=== PATIENT | male | born 1960 | race Caucasian/White ===

== ENCOUNTER 2016-03-08 11:13 | Emergency (ER) | payer MEDICAID ==
[~2016-03-08] VITALS: Ht 175.3 cm; Wt 72.6 kg
[~2016-03-08 11:13] MED LIST: AC325T PO; CALC500T6 PO; FLC1T PO; KCL20TCR PO; METO25TA2 PO; NAPR-243 PO; PALI6TAB2 PO; THIA100T12 PO
--- OUTSIDE RECORDS SUMMARY | 2016-03-08 11:22 | XMS REPORT | Continuity of Care Document ---
Author Author [facility] Organization [facility] Address Unknown Phone Unavailable Care Team Providers Care Environmental Services Tech Name Role Phone NO, LOCAL PHYSICIAN PP Unavailable Insurance Providers Payer Name Policy Number Subscriber Name Relationship [facility] [employer] [id number] Goyo Zacarias N 01 Self / Same As Patient Advance Directives Directive Response Recorded Date Advance Directives N 09/07/12 7:51am Health Care Power of Diamond Die Polisher N 09/07/12 7:51am Organ Donor N 09/07/12 7:51am Problems No Known Problems or Medical conditions. Social History History Response Recorded Date/Time Alcohol Use Regular Use 09/07/12 7:51am Recreational Drug Use N 09/07/12 7:51am Allergies, Adverse Reactions, Alerts Allergen Type Severity Reaction Last Updated NKANo Known Allergies Allergy Unknown 04/30/05 Medications Medication Dose Units Route Sig Qty Days Paliperidone (Invega) 1 Tab PO DAILY Immunizations Name Given Type DTaP 09/07/12 A Response Recorded Date/Time Status not known Unknown Results No Known Relevant Diagnostic Tests, Laboratory Data and/or Discharge Summary. Procedures Procedure Code Date APPLICATION OF SPLINT 93.54 04/30/05 Encounters Encounter Location Date/Time Departed Emergency Room [facility] 10/13 7:29am Discharged Inpatient [facility] 11:39pm
--- NOTE | 2016-03-08 11:48 | ED Lower Extremity ---
General Chief Complaint: Lower Extremity Stated Complaint: FEET/KNEES PAIN Source: patient, other (patient's friend) Exam Limitations: no limitations History of Present Illness Time seen by provider: 11:40 Initial Comments This 55-year-old male presents with a complaint of knee and foot pain that has been present for the last 2 years. The patient normally converts himself with alcohol for the pain. The patient drinks approximately a 12 pack daily. Patient denies any previous significant trauma to the knees or the feet. He has no other significant joint pain. He has knees and feet have not been swollen or red. The patient's sensation to lower extremities appear to be intact. Patient is very concerned that he has diabetes as his diabetic brother has similar pain in his legs Allergies and Home Medications Allergies Coded Allergies: NKANo Known Allergies (Verified Allergy, Unknown, 04/30/05) Home Medications Calcium Carbonate 500 Mg Tab.chew 500 MG PO (Reported) Metoprolol Tartrate 25 Mg Tablet 25 MG PO BID (Reported) Naproxen 500 Mg Tablet 1 EACH PO BID (Reported) Constitutional: No chills, No fever EENTM: No hearing loss, No vision loss Respiratory: No cough Cardiovascular: No chest pain Gastrointestinal: No abdominal pain, No diarrhea, No nausea, No vomiting Genitourinary: No dysuria, No frequency Musculoskeletal: see HPINo back pain, No gout, joint pain (to the knees and feet.) Skin: No rash Psychiatric/Neurological: No Symptoms Reported Past Wmigyzl-Qqqmsl-Fjszmm Hx Patient Social History Alcohol Use: Regular Use Recreational Drug Use: No Smoking Status: Current Everyday Smoker Recent Foreign Travel: No Contact w/Someone Who Travel: No Recent Hopitalizations: No Physical Abuse Screen: No Sexual Abuse: No Immunizations Up To Date Tetanus Booster (TDap): Unknown Seasonal Allergies Seasonal Allergies: No Surgeries HX Surgeries: No Respiratory Hx Respiratory Disorders: Yes Respiratory Disorders: Pneumonia, Sleep Apnea Cardiovascular Hx Cardiac Disorders: No Neurological Hx Neurological Disorders: Yes Reproductive System Hx Reproductive Disorders: No Genitourinary Hx Genitourinary Disorders: No Gastrointestinal Hx Gastrointestinal Disorders: No Musculoskeletal Hx Musculoskeletal Disorders: Yes Musculoskeletal Disorders: Fractures Endocrine Hx Endocrine Disorders: No HEENT HX ENT Disorders: Yes HEENT Disorders: Eye Injury, Double Vision Loss of Vision: Bilateral Hearing Impairment: Denies Cancer Hx Cancer: No Psychosocial Hx Psychiatric Problems: Yes Behavioral Health Disorders: Anxiety, Bipolar Integumentary HX Skin/Integumentary Disorder: No Blood Transfusions Hx Blood Disorders: No Adverse Reaction to a Blood Tr: No Reviewed Nursing Assessment Reviewed/Agree w Nursing PMH: Yes Physical Exam Vital Signs Vital Sign - Last 12Hours 03/08/16 11:29 Temp 98.2 Pulse 106 Resp 18 B/P 127/99 Pulse Ox 97 O2 Delivery Room Air Capillary Refill : General Appearance: WD/WN no apparent distress HEENT: normal ENT inspection Neck: normal inspection Cardiovascular: regular rate, rhythm Respiratory: lungs clear Gastrointestinal: normal bowel sounds non tender soft Back: normal inspection Hips: bilateral hip non-tender Legs: bilateral leg non-tender Knees: bilateral knee non-tender, bilateral knee pain Ankles: bilateral ankle non-tender Feet: bilateral foot non-tender, bilateral foot pain Neurologic/Tendon: normal sensation normal motor functions Neurologic/Psychiatric: no motor/sensory deficits alert normal mood/affect Skin: normal color warm/dry Progress/Results/Core Measures Results/Orders Lab Results Laboratory Tests Test 03/08/16 11:50 Range/Units Alanine Aminotransferase (ALT/SGPT) 57 H 0-55 U/L Albumin 4.3 3.2-4.5 G/DL Alkaline Phosphatase 81 40-136 U/L Anion Gap 15 H 5-14 MMOL/L Aspartate Amino Transf (AST/SGOT) 66 H 5-34 U/L BUN/Creatinine Ratio 7 Basophils # (Auto) 0.1 0.0-0.1 10^3/uL Basophils (%) (Auto) 1 0-10 % Blood Urea Nitrogen 5 L 7-18 MG/DL Calcium Level 8.8 8.5-10.1 MG/DL Carbon Dioxide Level 22 21-32 MMOL/L Chloride Level 103 98-107 MMOL/L Creatinine 0.67 0.60-1.30 MG/DL Eosinophils # (Auto) 0.1 0.0-0.3 10^3/uL Eosinophils (%) (Auto) 1 0-10 % Erythrocyte Sedimentation Rate 13 0-30 MM/HR Estimat Glomerular Filtration Rate > 60 Glucose Level 93 70-105 MG/DL Hematocrit 43 40-54 % Hemoglobin 15.3 13.3-17.7 G/DL Hemoglobin A1c 5.3 4.5-6.2 % Lymphocytes # (Auto) 3.4 1.0-4.0 X 10^3 Lymphocytes (%) (Auto) 31 12-44 % Mean Corpuscular Hemoglobin 33 25-34 PG Mean Corpuscular Hemoglobin Concent 36 32-36 G/DL Mean Corpuscular Volume 93 80-99 FL Mean Platelet Volume 9.4 7.4-10.4 FL Monocytes # (Auto) 1.0 0.0-1.0 X 10^3 Monocytes (%) (Auto) 9 0-12 % Neutrophils # (Auto) 6.3 1.8-7.8 X 10^3 Neutrophils (%) (Auto) 58 42-75 % Platelet Count 300 130-400 10^3/uL Potassium Level 3.7 3.6-5.0 MMOL/L Red Blood Count 4.61 4.35-5.85 10^6/uL Red Cell Distribution Width 16.3 H 10.0-14.5 % Sodium Level 140 135-145 MMOL/L Total Bilirubin 0.3 0.1-1.0 MG/DL Total Protein 7.7 6.4-8.2 G/DL Uric Acid 6.4 2.6-7.2 MG/DL White Blood Count 10.8 4.3-11.0 10^3/uL My Orders Orders-ADA ARDON MD Erythrocyte Sedimentation Rate (03/08/16 11:37) Uric Acid (03/08/16 11:37) Comprehensive Metabolic Panel (03/08/16 11:37) Hemoglobin A1c (03/08/16 11:37) Knee, 3 Views, Bilateral (03/08/16 11:37) Foot, Bilateral, 3 View (03/08/16 11:37) Cbc With Automated Diff (03/08/16 11:37) Vital Signs/I&O Vital Sign - Last 12Hours 03/08/16 11:29 Temp 98.2 Pulse 106 Resp 18 B/P 127/99 Pulse Ox 97 O2 Delivery Room Air Progress Note : Time: 11:51 Progress Note There is no evidence of effusion or erythema on examination of the knees and feet. A normal dorsalis pedis was appreciated bilaterally. No cyanosis was present the extremities were normal in color. Departure Impression Impression: Primary Impression: Joint pain Qualified Code: M25.569 - Pain in unspecified knee Disposition: Condition: Unchanged (ERASED) Departure-Patient Inst. Decision time for Depature: 15:23 Referrals: JORY MELCHOR DO (PCP/Family) Primary Care Physician Patient Instructions: Joint Pain Add. Discharge Instructions: Ibuprofen for pain. Close follow-up with Dr. Cadena. Return if any problems or questions. All discharge instructions reviewed with patient and/or family. Voiced understanding. ADA ARDON MD Mar 08, 2016 11:48
[2016-03-08 11:59] LABS: BASOPHILS # (AUTO) 0.1 10^3/uL (0.0-0.1); BASOPHILS % (AUTO) 1 % (0-10); EOSINOPHILS # (AUTO) 0.1 10^3/uL (0.0-0.3); EOSINOPHILS % (AUTO) 1 % (0-10); LYMPHOCYTES # (AUTO) 3.4 X 10^3 (1.0-4.0); LYMPHOCYTES % (AUTO) 31 % (12-44); MEAN CORPUSCULAR HEMOGLOBIN 33 PG (25-34); MEAN CORPUSCULAR HGB CONC 36 G/DL (32-36); MEAN CORPUSCULAR VOLUME 93 FL (80-99); MEAN PLATELET VOLUME 9.4 FL (7.4-10.4); MONOCYTES % (AUTO) 9 % (0-12); NEUTROPHILS # (AUTO) 6.3 X 10^3 (1.8-7.8); NEUTROPHILS % (AUTO) 58 % (42-75); PLATELET COUNT 300 10^3/uL (130-400); RED BLOOD COUNT 4.61 10^6/uL (4.35-5.85); RED CELL DISTRIBUTION WIDTH 16.3 % (10.0-14.5); WHITE BLOOD COUNT 10.8 10^3/uL (4.3-11.0)
[2016-03-08 12:09] VITALS: BP 0/0
[2016-03-08 12:16] LABS: ALANINE AMINOTRANSFERASE 57 U/L (0-55); ALBUMIN 4.3 G/DL (3.2-4.5); ANION GAP 15 MMOL/L (5-14); ASPARTATE AMINO TRANSFERASE 66 U/L (5-34); BILIRUBIN,TOTAL 0.3 MG/DL (0.1-1.0); BLOOD UREA NITROGEN 5 MG/DL (7-18); BUN/CREATININE RATIO 7; CALCIUM 8.8 MG/DL (8.5-10.1); CARBON DIOXIDE 22 MMOL/L (21-32); CHLORIDE 103 MMOL/L (98-107); CREATININE SERUM 0.67 MG/DL (0.60-1.30); GFR ESTIMATED > 60; GLUCOSE 93 MG/DL (70-105); POTASSIUM 3.7 MMOL/L (3.6-5.0); SODIUM 140 MMOL/L (135-145); TOTAL PROTEIN 7.7 G/DL (6.4-8.2); URIC ACID 6.4 MG/DL (2.6-7.2)
[2016-03-08 12:18] LABS: ERYTHROCYTE SEDIMENTATION RATE 13 MM/HR (0-30)
--- NOTE | 2016-03-08 12:23 | Diagnostic Imaging Report ---
INDICATION: Bilateral foot pain. Three views of each foot were obtained. FINDINGS: There is no fracture, dislocation or other acute abnormality seen within either foot. There is mild narrowing of the metatarsophalangeal joint of the first digit bilaterally. IMPRESSION: There are mild degenerative changes present. No acute abnormality is seen. Dictated by: Dictated on workstation # [id number]
--- NOTE | 2016-03-08 12:25 | Diagnostic Imaging Report ---
INDICATION: Bilateral knee pain for one year. Three views of each knee were obtained. FINDINGS: There is no fracture, dislocation or other acute abnormality seen on either side. No significant degenerative joint disease is seen. There is no chondrocalcinosis. There are no significant effusions. IMPRESSION: No abnormality is seen. Dictated by: Dictated on workstation # [id number]
== END 2016-03-08 12:09 | disposition left against medical advice (07) ==
LOC: EDUNIT# 11:13 → ER 11:17
DX: M25.561 Pain in right knee (principal); M25.562 Pain in left knee; M25.571 Pain in right ankle and joints of right foot; M25.572 Pain in left ankle and joints of left foot; F17.210 Nicotine dependence, cigarettes, uncomplicated; F10.10 Alcohol abuse, uncomplicated
CPT/HCPCS: 36415; 80053; 83036; 84550; 85025; 85652

== ENCOUNTER → 2016-12-18 | Outpatient (CLI) | payer MEDICAID ==
[2016-12-18 10:33] LABS: BASOPHILS % (AUTO) 0 % (0-10); EOSINOPHILS % (AUTO) 0 % (0-10); LYMPHOCYTES # (AUTO) 1.4 X 10^3 (1.0-4.0); LYMPHOCYTES % (AUTO) 11 % (12-44); MEAN CORPUSCULAR HEMOGLOBIN 34 PG (25-34); MEAN CORPUSCULAR HGB CONC 36 G/DL (32-36); MEAN CORPUSCULAR VOLUME 93 FL (80-99); MEAN PLATELET VOLUME 10.4 FL (7.4-10.4); MONOCYTES # (AUTO) 1.3 X 10^3 (0.0-1.0); MONOCYTES % (AUTO) 10 % (0-12); NEUTROPHILS # (AUTO) 10.7 X 10^3 (1.8-7.8); NEUTROPHILS % (AUTO) 80 % (42-75); PLATELET COUNT 127 10^3/uL (130-400); RED BLOOD COUNT 4.48 10^6/uL (4.35-5.85); RED CELL DISTRIBUTION WIDTH 14.8 % (10.0-14.5); WHITE BLOOD COUNT 13.5 10^3/uL (4.3-11.0)
--- NOTE | 2016-12-18 10:55 | Diagnostic Imaging Report ---
INDICATION: COUGH CONGESTION. COMPARISON:09/25/2012. FINDINGS: Frontal and lateral views of the chest demonstrate normal heart size and pulmonary vascularity. The lungs are clear. There are no signs of infiltrate, pleural effusions or pneumothoraces. The visualized osseous structures show no acute abnormalities. IMPRESSION: 1. No acute process. No signs of infiltrates, effusions or pneumothoraces. Dictated by: Dictated on workstation # [id number]
[2016-12-18 11:01] LABS: ALANINE AMINOTRANSFERASE 63 U/L (0-55); ALBUMIN 3.9 GM/DL (3.2-4.5); ANION GAP 18 MMOL/L (5-14); ASPARTATE AMINO TRANSFERASE 55 U/L (5-34); BILIRUBIN,TOTAL 1.1 MG/DL (0.1-1.0); BLOOD UREA NITROGEN 4 MG/DL (7-18); BUN/CREATININE RATIO 5; CALCIUM 9.6 MG/DL (8.5-10.1); CARBON DIOXIDE 19 MMOL/L (21-32); CHLORIDE 93 MMOL/L (98-107); CHOLESTEROL 166 MG/DL (< 200); CREATININE SERUM 0.73 MG/DL (0.60-1.30); DIRECT LDL 65 MG/DL (1-129); GFR ESTIMATED > 60; GLUCOSE 89 MG/DL (70-105); POTASSIUM 3.5 MMOL/L (3.6-5.0); SODIUM 130 MMOL/L (135-145); TOTAL PROTEIN 7.4 GM/DL (6.4-8.2); TRIGLYCERIDES 92 MG/DL (<150); VLDL CHOLESTEROL 18 MG/DL (5-40)
[2016-12-18 11:21] LABS: THYROID STIMULATING HORMONE 33.85 UIU/ML (0.35-4.94)
== END ==
LOC: CARD 09:59
PROVIDERS: ATTEND Family Medicine
DX: R42 Dizziness and giddiness (principal); F25.9 Schizoaffective disorder, unspecified; R00.0 Tachycardia, unspecified; R05 Cough
CPT/HCPCS: 36415; 71020; 80053; 80061; 84153; 84443; 85025; 93005

== ENCOUNTER 2016-12-23 15:35 | Emergency (ER) | payer MEDICAID ==
[~2016-12-23] VITALS: Ht 180.3 cm; Wt 72.6 kg
--- NOTE | 2016-12-23 16:08 | ED General ---
General Stated Complaint: CHEST PAIN/DIZZINESS/NEW MEDS Source of Information: Patient Exam Limitations: No Limitations History of Present Illness Time Seen by Provider: 16:06 Initial Comments To ER with c/o palpitations, denies chest pain, nonproductive cough, and a rhythmic uncontrollable movement of the jaw. The jaw movement, palpitations began a few weeks ago after starting synthroid and paliperidone. The cough and dyspnea is chronic. He smokes >2ppd. Denies chest or abdomen pain. Timing/Duration: 1-2 Days Severity: Moderate Associated Systoms: No Chest Pain, Cough Allergies and Home Medications Allergies Coded Allergies: NKANo Known Allergies (Verified Allergy, Unknown, 04/30/05) Home Medications Calcium Carbonate 500 Mg Tab.chew, 500 MG PO, (Reported) Metoprolol Tartrate 25 Mg Tablet, 25 MG PO BID, (Reported) Naproxen 500 Mg Tablet, 1 EACH PO BID, (Reported) Constitutional: see HPI EENTM: see HPI Respiratory: see HPI, cough Cardiovascular: no symptoms reported Genitourinary: no symptoms reported Musculoskeletal: no symptoms reported Skin: no symptoms reported Psychiatric/Neurological: No Symptoms Reported Hematologic/Lymphatic: No Symptoms Reported Past Gdprlmo-Ojsajt-Tjjnxv Hx Patient Social History Alcohol Beverage of Choice: Beer, Vodka Recent Foreign Travel: No Contact w/Someone Who Travel: No Recent Hopitalizations: No Immunizations Up To Date Tetanus Booster (TDap): Unknown Seasonal Allergies Seasonal Allergies: No Respiratory Respiratory Disorders: Pneumonia, Sleep Apnea Reproductive System Hx Reproductive Disorders: No Musculoskeletal Musculoskeletal Disorders: Fractures HEENT HEENT Disorders: Eye Injury, Double Vision Loss of Vision: Bilateral Hearing Impairment: Denies Psychosocial Behavioral Health Disorders: Anxiety, Bipolar Blood Transfusions Adverse Reaction to a Blood Tr: No Physical Exam Vital Signs Vital Sign - Last 12Hours 12/23/16 16:00 Temp 97.5 Pulse 82 Resp 18 B/P (MAP) 140/63 O2 Delivery Room Air Capillary Refill : General Appearance: No Apparent Distress, WD/WN Eyes: Bilateral Eye Normal Inspection, Bilateral Eye PERRL, Bilateral Eye EOMI HEENT: PERRL/EOMI, TMs Normal Neck: Full Range of Motion, Normal Inspection, Other (dystonic movements of jaw ) Respiratory: No Accessory Muscle Use, No Respiratory Distress, Decreased Breath Sounds, Rhonci Cardiovascular: Regular Rate, Rhythm, Normal Peripheral Pulses Gastrointestinal: Normal Bowel Sounds, Non Tender, Soft Extremity: Normal Capillary Refill, No Calf Tenderness Neurologic/Psychiatric: Alert, Oriented x3, No Motor/Sensory Deficits Skin: Normal Color, Warm/Dry Progress/Results/Core Measures Results/Orders Lab Results Laboratory Tests Test 12/23/16 16:30 Range/Units White Blood Count 12.0 H 4.3-11.0 10^3/uL Red Blood Count 3.85 L 4.35-5.85 10^6/uL Hemoglobin 13.0 L 13.3-17.7 G/DL Hematocrit 36 L 40-54 % Mean Corpuscular Volume 93 80-99 FL Mean Corpuscular Hemoglobin 34 25-34 PG Mean Corpuscular Hemoglobin Concent 36 32-36 G/DL Red Cell Distribution Width 15.1 H 10.0-14.5 % Platelet Count 229 130-400 10^3/uL Mean Platelet Volume 10.2 7.4-10.4 FL Neutrophils (%) (Auto) 58 42-75 % Lymphocytes (%) (Auto) 28 12-44 % Monocytes (%) (Auto) 13 H 0-12 % Eosinophils (%) (Auto) 1 0-10 % Basophils (%) (Auto) 1 0-10 % Neutrophils # (Auto) 7.0 1.8-7.8 X 10^3 Lymphocytes # (Auto) 3.3 1.0-4.0 X 10^3 Monocytes # (Auto) 1.5 H 0.0-1.0 X 10^3 Eosinophils # (Auto) 0.1 0.0-0.3 10^3/uL Basophils # (Auto) 0.1 0.0-0.1 10^3/uL Sodium Level 136 135-145 MMOL/L Potassium Level 3.7 3.6-5.0 MMOL/L Chloride Level 102 98-107 MMOL/L Carbon Dioxide Level 22 21-32 MMOL/L Anion Gap 12 5-14 MMOL/L Blood Urea Nitrogen 3 L 7-18 MG/DL Creatinine 0.62 0.60-1.30 MG/DL Estimat Glomerular Filtration Rate > 60 BUN/Creatinine Ratio 5 Glucose Level 97 70-105 MG/DL Calcium Level 8.9 8.5-10.1 MG/DL Total Bilirubin 0.4 0.1-1.0 MG/DL Aspartate Amino Transf (AST/SGOT) 160 H 5-34 U/L Alanine Aminotransferase (ALT/SGPT) 109 H 0-55 U/L Alkaline Phosphatase 72 40-136 U/L Total Protein 6.9 6.4-8.2 GM/DL Albumin 3.5 3.2-4.5 GM/DL Serum Alcohol 208 H <10 MG/DL My Orders Orders - HONG PATEL APRN Cbc With Automated Diff (12/23/16 16:04) Comprehensive Metabolic Panel (12/23/16 16:04) Troponin I (12/23/16 16:04) Thyroid Stimulating Hormone (12/23/16 16:04) Free T4 (Free Thyroxine) (12/23/16 16:04) Ua Culture If Indicated (12/23/16 16:04) Drug Screen Stat (Urine) (12/23/16 16:04) Diphenhydramine Tablet (Benadryl Tablet) (12/23/16 16:15) Ekg Tracing (12/23/16 16:04) Chest Pa/Lat (2 View) (12/23/16 16:04) Alcohol (12/23/16 16:25) Vital Signs/I&O Vital Sign - Last 12Hours 12/23/16 16:00 Temp 97.5 Pulse 82 Resp 18 B/P (MAP) 140/63 O2 Delivery Room Air Departure Communication (Admissions) Progress Notes NAME: GOYO ZACARIAS Sergio [facility] REC#: [id number] PT STATUS: REG ER : 1960 PHYSICIAN: HONG PATEL APRN ADMIT DATE: 12/23/16/ER Draft Date of Exam:12/23/16 CHEST PA/LAT (2 VIEW) INDICATION: Chest pain and dizziness and difficulty walking. PA and lateral chest obtained at 5:07 p.m. FINDINGS: Heart and mediastinal silhouette are normal in appearance. The lungs are clear. There is no pneumothorax or pleural fluid. IMPRESSION: Negative chest. Dictated on workstation # [id number] Dict: 12/23/161650 Trans: 12/23/161657 DAVE [id number] Interpreted by: CARLITOS HODGES MD Electronically signed by: Impression Impression: Primary Impression: Alcohol intoxication Additional Impressions: Medication side effect Chronic bronchitis Disposition: 01 HOME, SELF-CARE Condition: Stable Departure-Patient Inst. Decision time for Depature: 17:01 Referrals: JORY MELCHOR DO (PCP/Family) Primary Care Physician Patient Instructions: NO INSTRUCTIONS GIVEN Add. Discharge Instructions: 1. Follow up with Dr Melchor. Return to ER as needed. Ask Dr Melchor about stopping or changing the paliperidone as this is likely the cause of your unusual jaw movements. IN the meantime, use benadryl 1 tablet every 4 hours to help control this. HONG PATEL APRN Dec 23, 2016 16:08
[2016-12-23] MEDS ORDERED: diphenhydrAMINE 25 MG TAB (BENADRYL) PO ONE (16:15)
[2016-12-23 16:36] LABS: BASOPHILS # (AUTO) 0.1 10^3/uL (0.0-0.1); BASOPHILS % (AUTO) 1 % (0-10); EOSINOPHILS # (AUTO) 0.1 10^3/uL (0.0-0.3); EOSINOPHILS % (AUTO) 1 % (0-10); LYMPHOCYTES # (AUTO) 3.3 X 10^3 (1.0-4.0); LYMPHOCYTES % (AUTO) 28 % (12-44); MEAN CORPUSCULAR HEMOGLOBIN 34 PG (25-34); MEAN CORPUSCULAR HGB CONC 36 G/DL (32-36); MEAN CORPUSCULAR VOLUME 93 FL (80-99); MEAN PLATELET VOLUME 10.2 FL (7.4-10.4); MONOCYTES # (AUTO) 1.5 X 10^3 (0.0-1.0); MONOCYTES % (AUTO) 13 % (0-12); NEUTROPHILS % (AUTO) 58 % (42-75); PLATELET COUNT 229 10^3/uL (130-400); RED BLOOD COUNT 3.85 10^6/uL (4.35-5.85); RED CELL DISTRIBUTION WIDTH 15.1 % (10.0-14.5)
[2016-12-23 16:56] LABS: ALANINE AMINOTRANSFERASE 109 U/L (0-55); ALBUMIN 3.5 GM/DL (3.2-4.5); ALCOHOL 208 MG/DL (<10); ANION GAP 12 MMOL/L (5-14); ASPARTATE AMINO TRANSFERASE 160 U/L (5-34); BILIRUBIN,TOTAL 0.4 MG/DL (0.1-1.0); BLOOD UREA NITROGEN 3 MG/DL (7-18); BUN/CREATININE RATIO 5; CALCIUM 8.9 MG/DL (8.5-10.1); CARBON DIOXIDE 22 MMOL/L (21-32); CHLORIDE 102 MMOL/L (98-107); CREATININE SERUM 0.62 MG/DL (0.60-1.30); GFR ESTIMATED > 60; GLUCOSE 97 MG/DL (70-105); POTASSIUM 3.7 MMOL/L (3.6-5.0); SODIUM 136 MMOL/L (135-145); TOTAL PROTEIN 6.9 GM/DL (6.4-8.2)
--- NOTE | 2016-12-23 16:58 | Diagnostic Imaging Report ---
INDICATION: Chest pain and dizziness and difficulty walking. PA and lateral chest obtained at 5:07 p.m. FINDINGS: Heart and mediastinal silhouette are normal in appearance. The lungs are clear. There is no pneumothorax or pleural fluid. IMPRESSION: Negative chest. Dictated by: Dictated on workstation # [id number]
[2016-12-23 17:17] LABS: THYROID STIMULATING HORMONE 32.31 UIU/ML (0.35-4.94); TROPONIN I < 0.30 NG/ML (<0.30)
[2016-12-23 18:00] LABS: BILIRUBIN,URINE NEGATIVE (NEGATIVE); KETONES,URINE NEGATIVE (NEGATIVE); LEUKOCYTE ESTERASE ,URINE NEGATIVE (NEGATIVE); NITRITE,URINE NEGATIVE (NEGATIVE); PH,URINE 6.5 (5-9); PROTEIN,URINE NEGATIVE (NEGATIVE); UROBILINOGEN,URINE NORMAL (NORMAL)
[2016-12-23 18:25] VITALS: BP 138/66
== END 2016-12-23 18:25 | disposition home or self-care (01) ==
LOC: EDUNIT# 15:35 → ER 15:38
DX: F10.129 Alcohol abuse with intoxication, unspecified (principal); T38.1X5A Adverse effect of thyroid hormones and substitutes, initial encounter; J42 Unspecified chronic bronchitis; G47.30 Sleep apnea, unspecified; F31.9 Bipolar disorder, unspecified; F41.9 Anxiety disorder, unspecified; F17.210 Nicotine dependence, cigarettes, uncomplicated; Z87.01 Personal history of pneumonia (recurrent)
CPT/HCPCS: 36415; 71020; 80053; 80306; 80320; 81000; 84439; 84443; 84484; 85025; 93005

== ENCOUNTER 2019-06-05 23:19 | Emergency (ER) | payer MEDICAID ==
[~2019-06-05] VITALS: Ht 170 cm; Wt 81.0 kg
--- NOTE | 2019-06-05 23:36 | NUR ---
PT TALKING AND YELLING TO HIMSELF IN ROOM AND HITTING HIMSELF IN THE HEAD WITH HIS HAND. [facility] CALLED.
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
--- NOTE | 2019-06-05 23:47 | NUR ---
[place] [employer] HERE AFTER PT BECOMING INCREASINGLY AGGRESSIVE WITH [facility].
[2019-06-05 23:57] VITALS: BP 145/96
--- NOTE | 2019-06-05 23:57 | NUR ---
DISCHARGE INSTRUCTIONS GIVEN. PT REFUSED TO SIGN DC SIGNATURE PAGE. PT ESCORTED OFF PREMISES BY JT RENNER.
== END 2019-06-05 23:57 | disposition home or self-care (01) ==
LOC: EDUNIT# 23:19 → ER 23:21
DX: F10.920 Alcohol use, unspecified with intoxication, uncomplicated (principal); G47.30 Sleep apnea, unspecified; F41.9 Anxiety disorder, unspecified; F31.9 Bipolar disorder, unspecified
CPT/HCPCS: 99283

== ENCOUNTER 2019-06-20 20:11 | Observation (INO) | payer MEDICAID ==
[~2019-06-20] VITALS: Ht 175.3 cm; Wt 64.1 kg
[2019-06-20] MEDS ORDERED: NITROGLYCERIN 2% OINT 1 GM UNIT DOSE PACKET TOP STA (20:16)
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
--- OUTSIDE RECORDS SUMMARY | 2019-06-20 20:16 | XMS REPORT ---
Author Author Sergo, Jessie Doctor Organization [facility] Address Unknown Phone Unavailable Care Team Providers Care Precinct Captain Name Role Phone Migration, Doctor Unavailable Unavailable PROBLEMS Unknown Problems ALLERGIES No Information ENCOUNTERS Encounter Location Date Diagnosis [facility] [address] [facility] [id number] [address] [place] [id number] Oct, [facility] [address] [facility] [id number] [address] [place] [id number] Oct, [facility] [address] [facility] [id number] [address] [place] [phone] Oct, [facility] [address] [facility] [id number] [address] [place] [address] [id number] Aug, IMMUNIZATIONS No Known Immunizations SOCIAL HISTORY Never Assessed REASON FOR VISIT EMR-[facility] PLAN OF CARE VITAL SIGNS MEDICATIONS Unknown Medications RESULTS No Results PROCEDURES No Known procedures INSTRUCTIONS MEDICATIONS ADMINISTERED No Known Medications
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
--- OUTSIDE RECORDS SUMMARY | 2019-06-20 20:17 | XMS REPORT | Continuity of Care Document ---
Author Author [facility] Organization [facility] Address Unknown Phone Unavailable Care Team Providers Care Chemical Worker Name Role Phone NO, LOCAL PHYSICIAN PP Unavailable Insurance Providers Payer Name Policy Number Subscriber Name Relationship [place] [employer] [id number] Jessie Zacarias N 01 Self / Same As Patient Advance Directives Directive Response Recor ded Date Advance Directives N 12/13 6:22pm Health Care Power of Railroad Wheels And Axle Inspector N 09/09/12 6:22pm Organ Donor N 09/09/12 6 :22pm Problems No Known Problems or Medical conditions. Family History History Response Recorde d Date/Time Hx Family Cancer Y 09/09 5:49pm Hx Family Lung Cancer Y 09/09/12 5:49pm Hx Family Cardiac Disorders Y 09/09/12 5:49pm Hx Family Hypertension Y 09/09/12 5:49pm Social History History Response Recorde d Date/Time Alcohol Use Regular Use 09/09/12 5:59pm Recreational Drug Use Y 09/09/12 5:59pm Recent Foreign Travel N 09/09/12 5:59pm Recent Infectious Disease Exposure N 09/09/12 5:59pm Hospitalization with Isolation Denies 09/21/12 6:03pm Allergies, Adverse Reactions, Alerts Allergen Type Severity Reaction Last Updated NKANo Known Allergies Allergy Unknown 04/30/05 Medications Medication Dose Units Route Sig Qty Days Calcium Carbonate (Antacid Chewable Tablet) 500 Mg PO Naproxen (Naprosyn) 1 Ea ch PO BID Metoprolol Tartrate (Lopressor Po) 25 Mg PO BID Thiamine Hcl 100 Mg PO DAILY Acetaminophen (Tylenol) 650 Mg PO Q4H Potassium Chloride (Klor-Con 20 Tab) 1 Each PO DAILY Folic Acid (Folic Acid 1MG) 1 Mg PO DAILY Paliperidone (Invega) 1 Tab PO DAILY Immunizations Name Given Type DTaP 09/07/12 A Response Recorded Date/Time Status not known Unknown Results Test Date Result Interp. Ref. Range Activated Partial Thromboplast Time September 07, 2012 7:44am 30 SEC N 24-35 Alanine Aminotransferase (ALT/SGPT) September 07, 2012 7:44am 57 U/L N 30-65 Albumin September 07, 2012 7:44am 3.6 G/DL N 3.4-5.0 Alkaline Phosphatase September 07, 2012 7:44am 96 U/L N 50-136 Amphetamines Screen April 30 6 3:30pm Negative - Anisocytosis September 07, 2012 7:44am SLIGHT - Aspartate Amino Transf (AST/SGOT) Ju 2012 7:44am 63 U/L H 15-37 BUN/Creatinine Ratio September 07, 2012 7:44am 11 - Band Neutrophils September 07, 2012 7:44am 1 % - Basophils # (Auto) September 07, 2012 7:44am 0.0 10^3/uL N 0.0-0.1 Basophils % (Manual) September 07, 2012 7:44am 0 % - Basophils (%) (Auto) September 07, 2012 7:44am 0 % N 0-10 Blood Urea Nitrogen September 07, 2012 7:44am 12 MG/DL N 7-18 Calcium Level September 07, 2012 7:44am 8.9 MG/DL N 8.5-10.1 Carbon Dioxide Level September 07, 2012 7:44am 28 MMOL/L N 21-32 Chloride Level September 07, 2012 7:44am 99 MMOL/L L 101-110 Cholesterol Level June 26, 2005 7:05am 161 MG/DL N -200 Cocaine Screen April 30, 2005 3:30pm Negative - Creatinine September 07, 2012 7:44am 1.1 MG/DL N 0.6-1.3 Direct Bilirubin May 05, 2005 7:48am 0.1 MG/DL N 0.0-0.30 Eosinophils # (Auto) September 07, 2012 7:44am 0.0 10^3/uL N 0.0-0.3 Eosinophils % (Manual) September 07, 2012 7:44a m 0 % - Eosinophils (%) (Auto) September 07, 2012 7:44a m 0 % N 0-10 Glucose Level September 07, 2012 7:44am 131 MG/DL H 74-106 HDL Cholesterol June 26, 2005 7:05am 25 MG/ML L 35-60 Hematocrit September 07, 2012 7:44am 41 % N 40-54 Hemoglobin September 07, 2012 7:44am 14.5 G/DL N 13.3-17.7 Hepatitis A IgM Antibody May 03 006 7:25am See report - Hepatitis B Core IgM Antibody May 03, 2005 7:25am See report - Hepatitis B Surface Antigen May 7:25am See report - Hepatitis C Antibody May 03, 2005 7:25am See report - Indirect Bilirubin May 05, 2005 7:48am 0.3 MG/DL - LDL Cholesterol June 26, 2005 7:05am 113 MG/DL N 0-129 [place] Level June 27, 2005 6:31am 0.5 MEQ/L N 0.5-1.5 Lymphocytes # (Auto) September 07, 2012 7:44am 3.4 X 10^3 N 1.0-4.0 Lymphocytes % (Manual) September 07, 2012 7:44a m 15 % - Lymphocytes (%) (Auto) September 07, 2012 7:44a m 21 % N 12-44 Macrocytosis September 07, 2012 7:44am SLIGHT - Marijuana (THC) Screen April 30, 2005 3:30pm Negative - Mean Corpuscular Hemoglobin September 07, 2012 7:44am 32 PG N 25-34 Mean Corpuscular Hemoglobin Concent September 07, 2012 7:44am 36 G/DL N 32-36 Mean Corpuscular Volume September 07, 201 3 7:44am 90 FL N 80-99 Mean Platelet Volume September 07, 2012 7:44am 10.4 FL N 7.4-10.4 Methadone Level June 25, 2005 7:31am Neg - Monocytes # (Auto) September 07, 2012 7:44am 0.8 X 10^3 N 0.0-1.0 Monocytes % (Manual) September 07, 2012 7:44am 5 % - Monocytes (%) (Auto) September 07, 2012 7:44am 5 % N 0-12 Neutrophils # (Auto) September 07, 2012 7:44am 12.0 X 10^3 H 1.8-7.8 Neutrophils % (Manual) September 07, 2012 7:44a m 79 % - Neutrophils (%) (Auto) September 07, 2012 7:44a m 74 % N 42-75 Opiates Screen June 25, 2005 7:31am Neg - Platelet Count September 07, 2012 7:44am 239 10^3/uL N 130-400 Potassium Level September 07, 2012 7:44am 4.4 MMOL/L N 3.6-5.0 Prothrombin Time September 07, 2012 7:44am 12.0 SEC L 12.2-14.7 Rapid Plasma Reagin April 30 6 2:58pm Non-reactive - Red Blood Count September 07, 2012 7:44am 4.48 10^6/uL N 4.35-5.85 Red Cell Distribution Width September 07, 2012 7:44am 15.1 % H 10.0-14.5 Sodium Level September 07, 2012 7:44am 136 MMOL/L N 135-145 TSH [place] Testing June 25, 2005 6:57am 1.95 ULU/ML N 0.34-5.60 Total Bilirubin September 07, 2012 7:44am 0.7 MG/DL N 0.0-1.0 Total Protein September 07, 2012 7:44am 8.3 G/DL H 6.4-8.2 Tricyclic Antidepressants Screen Apr 3:30pm Negative - Triglycerides Level June 26, 2005 7:05am 117 MG/DL N 30.0-150.0 Urine Acetaminophen Level June 25, 2005 7:31am Neg - Urine Amphetamines Screen June 25, 2005 7:31am Neg - Urine Bacteria August 26, 2010 7:00am NEGATIVE - Urine Barbiturates Screen June 25, 2005 7:31am Neg - Urine Benzodiazepines Screen June 022005 7:31am Neg - Urine Bilirubin August 26, 2010 7:00am NEGATIVE - Urine Casts August 26, 2010 7:00am NONE - Urine Clarity August 26, 2010 7:00am CLEAR - Urine Cocaine Screen June 25, 2005 7:31am Neg - Urine Color August 26, 2010 7:00am YELLOW - Urine Crystals August 26, 2010 7:00am NONE - Urine Culture Indicated August 26 1 7:00am NO - Urine Drug Screen Other June 25 06 7:31am Neg - Urine Glucose (UA) August 26, 2010 7:00am NEGATIVE - Urine Ketones August 26, 2010 7:00am NEGATIVE - Urine Leukocyte Esterase August 26 7:00am NEGATIVE - Urine Marijuana (THC) June 25, 2005 7:31a m Neg - Urine Methamphetamines Screen Februa 2005 3:30pm Negative - Urine Mucus August 26, 2010 7:00am NEGATIVE - Urine Nitrate June 25, 2005 7:31am Negative - Urine Nitrite August 26, 2010 7:00am NEGATIVE - Urine Phencyclidine (PCP) Level Apri l 2005 7:31am Neg - Urine Phencyclidine Screen April 30, 2005 3:30pm Negative - Urine Propoxyphene Screen June 25, 2005 7:31am Neg - Urine Protein August 26, 2010 7:00am NEGATIVE - Urine RBC August 26, 2010 7:00am NONE /HPF - Urine Specific [place] August 26, 2010 7:00a m 1.010 L - Urine Squamous Epithelial Cells August 26, 2010 7:00am NONE - Urine Urobilinogen August 26, 2010 7:00am NORMAL MG/DL - Urine WBC August 26, 2010 7:00am NONE /HPF - Urine pH August 26, 2010 7:00am 5.0 - VLDL Cholesterol June 26, 2005 7:05am 23 MG/DL N 5-40 White Blood Count September 07, 2012 7:44am 16.3 10^3/uL H 4.3-11.0 Barbiturate Screen April 30, 2005 3:30p m Negative - Serum Alcohol September 07, 2012 7:44am < 5 MG/DL -5 Urine Creatinine (Tox) June 25 7:31am 99 MG/DL - Estimat Glomerular Filtration Rate J gris 2012 7:44am > 60 - Urine Ethyl Alcohol Screen June 25, 2005 7:31am Neg - Urine Salicylate Screen June 25 06 7:31am Neg - Urine RBC (Auto) August 26, 2010 7:00am NEGATIVE - INR Comment September 07, 2012 7:44am 0.9 N 0.8-1.4 Procedures Procedure Code Date APPLICATION OF SPLINT 93.54 04/30/05 Encounters Encounter Location Date/ Time Discharged Inpatient [facility] 09/09/12 5:37pm Departed Emergency Room [facility] 09/07/12 7:29am
--- OUTSIDE RECORDS SUMMARY | 2019-06-20 20:17 | XMS REPORT | Continuity of Care Document ---
Author Author [facility] Organization [facility] Address Unknown Phone Unavailable Care Team Providers Care Pressurization Mechanic Name Role Phone NO, LOCAL PHYSICIAN PP Unavailable Insurance Providers Payer Name Policy Number Subscriber Name Relationship [facility] [employer] Amer[employer]p [id number] Goyo Zacarias N 01 Self / Same As Patient Advance Directives Directive Response Recor ded Date Advance Directives N 7:23pm Health Care Power of Yard Warehouse Worker N 09/25/12 7:23pm Organ Donor N 09/25/12 7 :23pm Problems No Known Problems or Medical conditions. [...] 7:23pm Hospitalization with Isolation Denies 09/25/12 7:23pm Allergies, Adverse Reactions, Alerts Allergen Type Severity [...] SEC N 24-35 Alanine Aminotransferase (ALT/SGPT) September 10, 2012 6:12am 54 U/L N 30-65 Albumin September 10, 2012 6:12am 3.3 G/DL L 3.4-5.0 Alkaline Phosphatase September 10, 2012 6:12am 72 U/L N 50-136 Amphetamines Screen April 30 6 3:30pm Negative - Anisocytosis September 07, 2012 7:44am SLIGHT - Aspartate Amino Transf (AST/SGOT) Ju 2012 6:12am 43 U/L H 15-37 BUN/Creatinine Ratio September 21, 2012 5:41am 10 - Band Neutrophils September 07, 2012 7:44am 1 % - Basophils # (Auto) September 07, 2012 7:44am 0.0 10^3/uL N 0.0-0.1 Basophils % (Manual) September 07, 2012 7:44am 0 % - Basophils (%) (Auto) September 07, 2012 7:44am 0 % N 0-10 Blood Urea Nitrogen September 21, 2012 5:41am 9 MG/DL N 7-18 Calcium Level September 21, 2012 5:41am 9.0 MG/DL N 8.5-10.1 Carbon Dioxide Level September 21, 2012 5:41am 29 MMOL/L N 21-32 Chloride Level September 21, 2012 5:41am 94 MMOL/L L 101-110 Cholesterol Level June 26, 2005 7:05am 161 MG/DL N -200 Cocaine Screen April 30, 2005 3:30pm Negative - Creatinine September 21, 2012 5:41am 0.9 MG/DL N 0.6-1.3 Direct Bilirubin May 05, 2005 7:48am 0.1 MG/DL N 0.0-0.30 Eosinophils # (Auto) September 07, 2012 7:44am 0.0 10^3/uL N 0.0-0.3 Eosinophils % (Manual) September 07, 2012 7:44a m 0 % - Eosinophils (%) (Auto) September 07, 2012 7:44a m 0 % N 0-10 Glucose Level September 21, 2012 5:41am 66 MG/DL L 74-106 HDL Cholesterol June 26, 2005 7:05am 25 MG/ML L 35-60 Hematocrit September 10, 2012 6:12am 39 % L 40-54 Hemoglobin September 10, 2012 6:12am 13.8 G/DL N 13.3-17.7 Hepatitis A IgM Antibody [...] 26, 2005 7:05am 113 MG/DL N 0-129 [place] Level June 27, 2005 6:31am 0.5 MEQ/L [...] 3:30pm Negative - Mean Corpuscular Hemoglobin September 10, 2012 6:12am 33 PG N 25-34 Mean Corpuscular Hemoglobin Concent September 10, 2012 6:12am 35 G/DL N 32-36 Mean Corpuscular Volume September 10, 201 3 6:12am 92 FL N 80-99 Mean Platelet Volume September 10, 2012 6:12am 10.8 FL H 7.4-10.4 Methadone Level June 25, 2005 7:31am [...] 2005 7:31am Neg - Platelet Count September 10, 2012 6:12am 143 10^3/uL N 130-400 Potassium Level September 21, 2012 5:41am 4.1 MMOL/L N 3.6-5.0 Prothrombin Time September 07, 2012 7:44am 12.0 SEC L 12.2-14.7 Rapid Plasma Reagin April 30 6 2:58pm Non-reactive - Red Blood Count September 10, 2012 6:12am 4.25 10^6/uL L 4.35-5.85 Red Cell Distribution Width September 10, 2012 6:12am 14.3 % N 10.0-14.5 Serum Osmolality September 17, 2012 1:30pm 246 L MOS/KG - Sodium Level September 21, 2012 5:41am 129 MMOL/L L 135-145 TSH [place] Testing June 25, 2005 6:57am 1.95 ULU/ML N 0.34-5.60 Total Bilirubin September 10, 2012 6:12am 0.6 MG/DL N 0.0-1.0 Total Protein September 10, 2012 6:12am 7.6 G/DL N 6.4-8.2 Tricyclic Antidepressants Screen Apr 3:30pm Negative [...] NONE - Urine Culture Indicated August 26 7:00am NO - Urine Drug Screen Other June 25 7:31am Neg - Urine Glucose (UA) August 26, 2010 7:00am NEGATIVE - Urine Ketones August 26, 2010 7:00am NEGATIVE - Urine Leukocyte Esterase August 26 7:00am NEGATIVE - Urine Marijuana (THC) June 25, 2005 7:31a m Neg - Urine Methamphetamines Screen 2005 3:30pm Negative - Urine Mucus August 26, 2010 7:00am NEGATIVE - Urine Nitrate June 25, 2005 7:31am Negative - Urine Nitrite August 26, 2010 7:00am NEGATIVE - Urine Osmolality September 17, 2012 1:30pm 322 MOS/KG - Urine Phencyclidine (PCP) Level Apri l 2005 7:31am Neg - Urine Phencyclidine Screen April 30, 2005 3:30pm Negative - Urine Propoxyphene Screen June 25, 2005 7:31am Neg - Urine Protein August 26, 2010 7:00am NEGATIVE - Urine RBC August 26, 2010 7:00am NONE /HPF - Urine Specific [place] August 26, 2010 7:00a m 1.010 L - Urine Squamous Epithelial Cells August 26, 2010 7:00am NONE - Urine Urobilinogen August 26, 2010 7:00am NORMAL MG/DL - Urine WBC August 26, 2010 7:00am NONE /HPF - Urine pH August 26, 2010 7:00am 5.0 - VLDL Cholesterol June 26, 2005 7:05am 23 MG/DL N 5-40 White Blood Count September 10, 2012 6:12am 9.8 10^3/uL N 4.3-11.0 Barbiturate Screen April 30, 2005 3:30p m Negative - Serum Alcohol September 07, 2012 7:44am < 5 MG/DL -5 Urine Creatinine (Tox) June 25 6 7:31am 99 MG/DL - Estimat Glomerular Filtration [...] 93.54 04/30/05 Encounters Encounter Location Date/ Time Registered Emergency Room [facility] 09/25/12 7:11pm Discharged Inpatient [facility] 09/09/12 5:37pm Departed Emergency Room [facility] 09/07/12 7:29am
[2019-06-20 20:58] LABS: BASOPHILS % (AUTO) 0 % (0-10); EOSINOPHILS # (AUTO) 0.1 10^3/uL (0.0-0.3); EOSINOPHILS % (AUTO) 1 % (0-10); HEMATOCRIT 38 % (40-54); HEMOGLOBIN 13.4 G/DL (13.3-17.7); LYMPHOCYTES # (AUTO) 2.4 X 10^3 (1.0-4.0); LYMPHOCYTES % (AUTO) 22 % (12-44); MEAN CORPUSCULAR HEMOGLOBIN 33 PG (25-34); MEAN CORPUSCULAR HGB CONC 35 G/DL (32-36); MEAN CORPUSCULAR VOLUME 96 FL (80-99); MEAN PLATELET VOLUME 11.4 FL (7.4-10.4); MONOCYTES # (AUTO) 1.1 X 10^3 (0.0-1.0); MONOCYTES % (AUTO) 10 % (0-12); NEUTROPHILS # (AUTO) 7.1 X 10^3 (1.8-7.8); NEUTROPHILS % (AUTO) 66 % (42-75); PLATELET COUNT 205 10^3/uL (130-400); RED CELL DISTRIBUTION WIDTH 15.6 % (10.0-14.5); WHITE BLOOD COUNT 10.8 10^3/uL (4.3-11.0)
[2019-06-20 20:59] LABS: ALBUMIN 4.2 GM/DL (3.2-4.5)
[2019-06-20 21:00] LABS: CHLORIDE 101 MMOL/L (98-107); POTASSIUM 3.7 MMOL/L (3.6-5.0); SODIUM 137 MMOL/L (135-145)
[2019-06-20 21:01] LABS: AMYLASE 61 U/L (25-125); CALCIUM 9.1 MG/DL (8.5-10.1)
[2019-06-20 21:02] LABS: GLUCOSE 100 MG/DL (70-105)
[2019-06-20 21:03] LABS: CARBON DIOXIDE 24 MMOL/L (21-32)
[2019-06-20 21:04] LABS: BILIRUBIN,TOTAL 0.4 MG/DL (0.1-1.0)
[2019-06-20 21:05] LABS: ALKALINE PHOSPHATASE 76 U/L (40-136)
[2019-06-20 21:06] LABS: GFR ESTIMATED > 60
[2019-06-20 21:07] LABS: BUN/CREATININE RATIO 9
[2019-06-20 21:08] LABS: ALANINE AMINOTRANSFERASE 156 U/L (0-55); MAGNESIUM 1.6 MG/DL (1.6-2.4)
[2019-06-20 21:10] LABS: CREATINE KINASE 86 U/L (30-200); LIPASE 11 U/L (8-78)
--- NOTE | 2019-06-20 21:16 | Diagnostic Imaging Report ---
INDICATION: Chest pain. TECHNIQUE: Single view chest 8:47 PM. CORRELATION STUDY: 12/23/2016 FINDINGS: The heart size, mediastinal configuration and pulmonary vascularity are within normal limits. The lungs are clear with no consolidating infiltrate. There is no significant effusion or pneumothorax. IMPRESSION: 1. Negative for acute abnormality of the chest. Dictated by: Dictated on workstation # [id number]
[2019-06-20 21:17] LABS: CREATINE KINASE MB 1.4 NG/ML (<6.6); INR 0.9 (0.8-1.4); PROTHROMBIN TIME PATIENT 12.6 SEC (12.2-14.7)
--- NOTE | 2019-06-20 21:29 | ED Chest Pain ---
General Chief Complaint: Chest Pain Stated Complaint: CP,SOB Nursing Triage Note: complaint of chest pain Nursing Sepsis Screen: No Definite Risk Source: patient (LIMITED HISTORIAN), old records History of Present Illness Date Seen by Provider: Jun 20, 2019 Time Seen by Provider: 20:20 Initial Comments PT ARRIVES VIA EMS FROM HOME C/O CHEST PAIN--BEGAN AN HOUR AGO, WHILE TRYING TO GO TO SLEEP PAIN IS IN MID STERNAL AND LEFT MID CHEST NO RADIATION OF PAIN PAIN IS WORSE WITH WALKING OR ANY EXERTION C/O BEING SHORT OF BREATH ( PT DOES NOT APPEAR TO BE DYSPNEIC IN ANYWAY, RESPIRATIONS ARE EVEN AND UNLABORED WITH A NORMAL RATE, AND O2 SAT IS 98-100% ON ROOM AIR ) HAS NOT CHECKED TEMP, BUT STATES HE FELT HOT AND COLD AND HAD SWEATS NO COUGH NO URI SYMPTOMS NO PALPITATIONS NO DIZZINESS OR SYNCOPE NO SWELLING IN LEGS/ FEET OR PAIN IN CALVES NO NAUSEA/VOMITING DENIES HISTORY OF CHEST PAIN EMS GAVE 4 BABY ASPIRIN, BUT NO NTG. DENIES HISTORY OF CARDIAC PROBLEMS BUT HAS BEEN DX WITH HTN, AND HAS BEEN PRESCRIBED MEDICATION FOR BLOOD PRESSURE, BUT HAS NOT TAKEN ANY--STATES HE WAS PRESCRIBED SOME 1 1/[address] KIRKLAND HAS HISTORY OF COPD, STILL SMOKES 2 PPD PT ALSO SMOKES MARIJUANA PT HAS LONGSTANDING ALCOHOL ABUSE, WITH MULTIPLE VISITS HERE RELATED TO ALCOHOL--(WITH LEVELS BEING IN THE 400'S ON PREVIOUS VISITS ), INCLUDING AN INTRACRANIAL/INTRAPARENCHYMAL BLEED 08/2012, WITH EVIDENCE OF AN OLD SUBDURAL BLEED WELL, AT THAT TIME PT WAS RECENTLY ADMITTED TO [facility], PER EMS PT HAS GABAPENTIN AND ZYPREXA WITH HIM ( AFTER INITIALLY STATING TO ME THAT HE DID NOT TAKE ANY MEDICATION FOR ANYTHING ) PT HAS BEEN HOMELESS AND IN AND OUT OF RESIDENTIAL PT HAS BEEN A TRANSIENT, HE HAS FAMILY THAT LIVE IN THE AREA, BUT HE HAS NOT BEEN ALLOWED TO STAY WITH THEM PT WAS SEEN HERE 06/05/2019 FOR ALCOHOL INTOXICATION/ABUSE--TREATED AND RELEASED. HE REPORTED THAT HE WAS HOMELESS AT THAT TIME, HE HAD REPORTED AT THAT TIME THAT HE HAD RECENTLY COME HERE FROM [place], [place] PT HAS BEEN HERE AT THIS FACILITY AT VARIOUS TIMES FOR SEVERAL YEARS, HOWEVER. PT HAS BEEN TO MULTIPLE PHYSICIANS IN THIS AREA, INCLUDING [facility], DR. MELCHOR HE STATES THAT MOST RECENTLY HE HAS BEEN TO DR. KIRKLAND IN [place]--1 1/2 MONTHS AGO, AND SHE PRESCRIBED BLOOD PRESSURE MEDICATION, WHICH HE HAS NOT BEEN TAKING Allergies and Home Medications Allergies Coded Allergies: Mickey Known Allergies (Verified Allergy, Unknown, 04/30/05) Home Medications Metoprolol Tartrate 25 Mg Tablet, 25 MG PO BID, (Reported) Naproxen 500 Mg Tablet, 1 EACH PO BID, (Reported) Patient Home Medication List Home Medication List Reviewed: Yes Review of Systems Review of Systems Constitutional: see HPI, chills, diaphoresis, fever EENTM: No Symptoms Reported; No Nose Congestion, No Throat Pain Respiratory: See HPI; Denies Cough, Denies Orthopnea; Shortness of Air; Denies Wheezing Cardiovascular: See HPI, Chest Pain; Denies Edema, Denies Irregular Heart Rate, Denies Lightheadedness, Denies Palpitations, Denies Syncope Gastrointestinal: No Symptoms Reported; Denies Abdominal Pain, Denies Diarrhea, Denies Nausea, Denies Vomiting Genitourinary: No Symptoms Reported Musculoskeletal: no symptoms reported; No back pain Skin: no symptoms reported Psychiatric/Neurological: See HPI (HAS BEEN DX WITH SCHIZOPHRENIA, BIPOLAR- ANXIETY/DEPRESSION) Endocrine: No Symptoms Reported Hematologic/Lymphatic: No Symptoms Reported Past Hjtrbnd-Pmksti-Pgiork Hx Past Med/Social Hx: Reviewed and Corrections made Patient Social History Alcohol Use: Regular Use (HEAVY/DAILY ABUSE FOR YEARS) Number of Drinks Today: FF Alcohol Beverage of Choice: Beer, Vodka Recreational Drug Use: Yes (THC) Drug of Choice: THC Smoking Status: Current Everyday Smoker (2 PPD) Type Used: Cigarettes (2 PPD) 2nd Hand Smoke Exposure: Yes Recent Foreign Travel: No Contact w/Someone Who Travel: No Recent Infectious Disease Expo: No Recent Hopitalizations: No Physical Abuse: No Sexual Abuse: No Mistreated: No Fear: No Immunizations Up To Date Tetanus Booster (TDap): Unknown Seasonal Allergies Seasonal Allergies: No Past Medical History Surgeries: No Respiratory: Yes Pneumonia, Sleep Apnea Cardiac: Yes Hypertension Neurological: Yes (08/2012-ACUTE INTRAPARENCHYMAL BLEED, WITH OLD SUBDURAL BLEED-NO SURGERY) Traumatic Brain Injury Reproductive Disorders: No Genitourinary: No Gastrointestinal: Yes (ELEVATED LFT'S) Musculoskeletal: Yes Fractures Endocrine: No HEENT: Yes Eye Injury, Double Vision Loss of Vision: Bilateral Hearing Impairment: Denies Cancer: No Psychosocial: Yes (ALCOHOLISM; SUBSTANCE ABUSE/THC) Anxiety, Bipolar, Schizophrenia Integumentary: No Blood Disorders: No Adverse Reaction/Blood Tranf: No Family Medical History SOCIAL HISTORY: -PT HAS BEEN HOMELESS, AND A TRANSIENT, AND IN AND OUT OF RESIDENTIAL. HAS FAMILY IN THE AREA, BUT HAVE NOT ALLOWED HIM TO STAY WITH THEM DUE TO HIS PAST BEHAVIORS. Physical Exam Vital Signs Vital Signs - First Documented 06/20/19 20:17 Temp 37.0 Pulse 117 Resp 20 B/P (MAP) 189/112 (137) Pulse Ox 96 O2 Delivery Room Air Capillary Refill : Less Than 3 Seconds Height, Weight, BMI Height: 5'11.00" Weight: 160lbs. oz. 72.028674yf; 25.00 BMI Method:Estimated General Appearance: No Apparent Distress, WD/WN, Other (REEKS OF CIGARETTES, UNKEMPT. PT WITH FLAT AFFECT. COOPERATIVE) HEENT: Other (POOR DENTITION) Neck: Normal Inspection Respiratory: Chest Non Tender, Normal Breath Sounds, No Accessory Muscle Use, No Respiratory Distress Cardiovascular: Regular Rate, Rhythm, No Edema, No JVD, No Murmur, Normal Peripheral Pulses Gastrointestinal: Normal Bowel Sounds, No Organomegaly, No Pulsatile Mass, Non Tender, Soft Extremity: Normal Capillary Refill, Normal Inspection, Normal Range of Motion, Non Tender, No Calf Tenderness, No Pedal Edema Neurologic/Psychiatric: Alert, Oriented x3, No Motor/Sensory Deficits, binder sorter II- XII Norm as Tested, Other (FLAT AFFECT) Skin: Normal Color, Warm/Dry; No Rash Progress/Results/Core Measures Results/Orders Lab Results Laboratory Tests Test 06/20/19 20:22 06/20/19 20:33 06/20/19 20:35 Range/Units White Blood Count 10.8 4.3-11.0 10^3/uL Red Blood Count 4.01 L 4.35-5.85 10^6/uL Hemoglobin 13.4 13.3-17.7 G/DL Hematocrit 38 L 40-54 % Mean Corpuscular Volume 96 80-99 FL Mean Corpuscular Hemoglobin 33 25-34 PG Mean Corpuscular Hemoglobin Concent 35 32-36 G/DL Red Cell Distribution Width 15.6 H 10.0-14.5 % Platelet Count 205 130-400 10^3/uL Mean Platelet Volume 11.4 H 7.4-10.4 FL Neutrophils (%) (Auto) 66 42-75 % Lymphocytes (%) (Auto) 22 12-44 % Monocytes (%) (Auto) 10 0-12 % Eosinophils (%) (Auto) 1 0-10 % Basophils (%) (Auto) 0 0-10 % Neutrophils # (Auto) 7.1 1.8-7.8 X 10^3 Lymphocytes # (Auto) 2.4 1.0-4.0 X 10^3 Monocytes # (Auto) 1.1 H 0.0-1.0 X 10^3 Eosinophils # (Auto) 0.1 0.0-0.3 10^3/uL Basophils # (Auto) 0.0 0.0-0.1 10^3/uL Erythrocyte Sedimentation Rate 28 0-30 MM/HR Prothrombin Time 12.6 12.2-14.7 SEC INR Comment 0.9 0.8-1.4 Activated Partial Thromboplast Time 27 24-35 SEC Sodium Level 137 135-145 MMOL/L Potassium Level 3.7 3.6-5.0 MMOL/L Chloride Level 101 98-107 MMOL/L Carbon Dioxide Level 24 21-32 MMOL/L Anion Gap 12 5-14 MMOL/L Blood Urea Nitrogen 7 7-18 MG/DL Creatinine 0.80 0.60-1.30 MG/DL Estimat Glomerular Filtration Rate > 60 BUN/Creatinine Ratio 9 Glucose Level 100 70-105 MG/DL Calcium Level 9.1 8.5-10.1 MG/DL Corrected Calcium 8.9 8.5-10.1 MG/DL Magnesium Level 1.6 1.6-2.4 MG/DL Total Bilirubin 0.4 0.1-1.0 MG/DL Aspartate Amino Transf (AST/SGOT) 186 H 5-34 U/L Alanine Aminotransferase (ALT/SGPT) 156 H 0-55 U/L Alkaline Phosphatase 76 40-136 U/L Lactate Dehydrogenase 293 H 125-220 U/L Total Creatine Kinase 86 30-200 U/L Creatine Kinase MB 1.4 <6.6 NG/ML Myoglobin 24.8 10.0-92.0 NG/ML Troponin I < 0.028 <0.028 NG/ML C-Reactive Protein High Sensitivity 1.37 H 0.00-0.50 MG/DL B-Type Natriuretic Peptide 32.4 <100.0 PG/ML Total Protein 8.0 6.4-8.2 GM/DL Albumin 4.2 3.2-4.5 GM/DL Amylase Level 61 25-125 U/L Lipase 11 8-78 U/L Procalcitonin 0.05 <0.10 NG/ML Serum Alcohol < 10 <10 MG/DL Group A Streptococcus Screen NEGATIVE NEGATIVE Micro Results Microbiology 06/20/19 Influenza Types A,B Antigen (DORYS) - Final, Complete My Orders Orders - DEN DOHERTY DO Ed Iv/Invasive Line Start (06/20/19 20:16) Ekg Tracing (06/20/19 20:16) Monitor-Rhythm Ecg Trace Only (06/20/19 20:16) Cbc With Automated Diff (06/20/19 20:16) Magnesium (06/20/19 20:16) Chest 1 View, Ap/Pa Only (06/20/19 20:16) Comprehensive Metabolic Panel (06/20/19 20:16) Myoglobin Serum (06/20/19 20:16) Protime With Inr (06/20/19 20:16) Partial Thromboplastin Time (06/20/19 20:16) O2 (06/20/19 20:16) Ed Iv/Invasive Line Start (06/20/19 20:16) Creatine Kinase (06/20/19 20:16) Creatine Kinase Mb (06/20/19 20:16) Lipase (06/20/19 20:16) Amylase (06/20/19 20:16) BNP (06/20/19 20:16) Troponin I (06/20/19 20:16) Nitroglycerin Ointment (Nitrobid Ointme (06/20/19 20:16) Procalcitonin (Pct) (06/20/19 20:16) Hs C Reactive Protein (06/20/19 20:16) Erythrocyte Sedimentation Rate (06/20/19 20:16) LDH (06/20/19 20:16) Blood Culture (06/20/19 20:16) Influenza A And B Antigens (06/20/19 20:16) Rapid Strep A Screen (06/20/19 20:16) Coronavirus Sars-Cov-2 So 2018 (06/20/19 20:16) Adenovirus Detection By Pcr (06/20/19 20:16) Parainfluenza Virus 1,2,3 Pcr (06/20/19 20:16) Alcohol (06/20/19 21:15) Ua Culture If Indicated (06/20/19 21:15) Ct Angio Chest W (06/20/19 21:48) Labetalol Injection (Normodyne Injection (06/20/19 22:30) Hydralazine Injection (Apresoline Inject (06/20/19 22:45) Hydralazine Injection (Apresoline Inject (06/20/19 23:30) Medications Given in ED Current Medications Medications Dose Ordered Sig/Ronni Route Start Time Stop Time Status Last Admin Dose Admin Hydralazine HCl 10 mg ONCE ONCE IV 06/20/19 22:45 06/20/19 22:46 DC 06/20/19 22:44 10 MG Labetalol HCl 20 mg ONCE ONCE IV 06/20/19 22:30 06/20/19 22:31 DC 06/20/19 22:24 20 MG Vital Signs/I&O 06/20/19 06/20/19 20:17 20:51 Temp 37.0 Pulse 117 Resp 20 B/P (MAP) 189/112 (137) Pulse Ox 96 O2 Delivery Room Air Room Air Blood Pressure Mean: 137 Progress Progress Note : Progress Note PPE DONNED ON PT'S ARRIVAL AND WORN AT ALL TIMES DURING PT'S STAY-DUE TO C/O SHORTNESS OF BREATH AND SUBJECTIVE FEVER/SWEATS/CHILLS. COVID TESTING PERFORMED NITROPASTE APPLIED WITH DECREASE IN BP AND CHEST PAIN IS NOW RESOLVED--NO COMPLAINTS OF CHEST PAIN FOR REMAINDER OF ER STAY BP WENT BACK UP, AND PT STILL TACHYCARDIC IN 110'S-120, GIVEN LABETALOL, FOLLOWED BY HYDRALAZINE PT DOWN TO 130'S SYSTOLIC PRIOR TO ADMIT HEART RATE DOWN TO 80'S PRIOR TO ADMIT O2 SATS REMAINED 98-100% ON ROOM AIR THROUGHOUT ENTIRE ER STAY, ALTHOUGH HE CONTINUED TO COMPLAIN THAT HE FELT LIKE HE COULDN'T BREATHE. CT CHEST ANGIOGRAM WAS PERFORMED AND NO EVIDENCE OF P.E. OR OVERT PNEUMONIA--SEE RADIOLOGIST REPORT FOR DETAILS PT NOW REPORTING THAT HE TAKES ZYPREXA AND GABAPENTIN ( EARLIER HAD REPORTED THAT HE DOES NOT TAKE ANY MEDICATIONS ) --HE BRINGS THESE MEDICATIONS WITH HIM. RN VERIFIED MEDICATIONS, AND PT WAS ALLOWED TO TAKE HIS OWN REGULAR DOSE OF THESE MEDICATIONS, AND WERE ADMINISTERED BY RN, PILL BOTTLES REMOVED FROM ROOM PRESCRIBED 05/31/2019--BY DR. ESTELA AREVALO, PSYCHIATRIST AT [facility] Initial ECG Impression Date: Jun 20, 2019 Initial ECG Impression Time: 20:17 Initial ECG Rate: 117 Initial ECG Rhythm: S.Tach Diagnostic Imaging Comments CXR--NO ACUTE PROCESS, PER RADIOLOGIST REPORT AT 2122 CT CHEST ANGIOGRAM--NO P.E., MILD EMPHYSEMA, RUL CENTRILOBULAR NODULES, LIKELY REPRESENTING INFECTIOUS/INFLAMMATORY BRONCHIOLITIS--PER [facility] VIA FAX AT [phone] Reviewed: Reviewed by Me Departure Communication (Admissions) 2317--ATTEMPTING TO CONTACT DR. GARCIA, HOSPITALIST DIRECTOR OF COMMUNITY LIFE. MESSAGE LEFT ON CELL 8--CALLED DR. GARCIA, ACCEPTS PT FOR ADMIT Impression Primary Impression: Chest pain Additional Impressions: Uncontrolled hypertension COPD (chronic obstructive pulmonary disease) COVID P.U.I. LONGSTANDING ALOHOL ABUSE BY HX Disposition: ADMITTED INPATIENT Condition: Improved Admissions Decision to Admit Reason: Admit from ER (General) Decision to Admit/Date: Jun 20, 2019 Time/Decision to Admit Time: 23:30 Departure-Patient Inst. Referrals: JORY MELCHOR DO (PCP/Family) Primary Care Physician DEN DOHERTY DO Jun 20, 2019 21:29
[2019-06-20] MEDS ORDERED: LABETALOL HCL 20 MG/4 ML VIAL IV ONE (22:30)
[2019-06-20] MEDS ORDERED: hydrALAZINE (APESOLINE) 20 MG/ML VIAL IV ONE ×2 (22:45→23:30)
[2019-06-20] MEDS ORDERED: ENOXAPARIN 80 MG/0.8 ML (LOVENOX) SYR SC ONE (23:45)
[2019-06-21] VITALS (15 sets, daily range): BP systolic 112–142; BP diastolic 73–95
--- OUTSIDE RECORDS SUMMARY | 2019-06-21 00:06 | XMS REPORT | Continuity of Care Document ---
[...] 09/07/2012 RUDDY ELIZALDE MD Ot V06. 1 [id number], COMBINED [ 09/21/2012 GEOFFREY PALENCIA MD Ot [...] Ot V58.8 9 OTHER SPECIFIED AFTERCARE 09/25/2012 SACHA ABAD, MARCI T Ot 276.1 HYPOSMOLALITY 09/25/2012 [...] HISTORY OF PNEUMONIA (RECURRENT 12/30/2016 GELLENDER DO, OJRY Argueta Ot F25.9 SCHIZOAFFECTIVE DISORDER, UNSPECIFIED 12/30/2016 [...] Status Pt. Type Provider Facility Loc./Unit Complaint [id number] 09/09/2018 13:00:00 09/09/2018 23:59:5 9 [facility] Outpatient RACHEL JONES APRN [facility] [id number] 06/05/2019 23:21:00 020 23:57:00 DIS Emergency ELÍAS ABAD, MENA Batista [facility] ER HIP PAIN [id number] 12/23/2016 15:38:00 017 18:25:00 DIS Emergency HONG PATEL APRN [facility] ER CHEST PAIN/DIZZINESS/NE W MEDS [id number] 12/18/2016 09:59:00 017 23:59:59 CLS Outpatient JORY MELCHOR DO A [facility] CARD TACHYCARDIA [id number] 03/08/2016 11:17:00 017 12:09:00 DIS Emergency REVA ABAD, ADA S [facility] ER FEET/KNEES PAIN [id number] 09/25/2012 19:11:00 013 20:44:00 DIS Emergency SACHA ABAD, MARCI Douglas [facility] ER ALTERCATION 2 W EEKS AGO [id number] 09/09/2012 17:37:00 013 14:30:00 DIS Inpatient SLIME ABAD, GEOFFREY Patel [facility] IRF SUBDURAL HEMATOMA [id number] 09/07/2012 07:29:00 013 10:20:00 DIS Emergency RUDDY ELIZALDE MD [facility] ER ALTERCATION [id number] 02/17/2011 11:53:00 Document Registration [id number] 03/16/2019 16:49:00 03/16/2019 23:59 :00 DIS Outpatient CESAR KIRKLAND [id number] 03/16/2019 14:36:00 03/16/2019 23:59 :00 DIS Outpatient CESAR KIRKLAND
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
[2019-06-21] MEDS ORDERED: fentaNYL INJECTION 100 MCG/2 ML AMP ONE (00:15)
[2019-06-21] MEDS ORDERED: MIDAZOLAM 2 MG/2 ML (VERSED) VIAL ONE (00:15)
--- NOTE | 2019-06-21 00:50 | NUR ---
GOYO ZACARIAS admitted to room CU6-1, with an admitting diagnosis of CHEST PAIN, UNCONTROLLED HYPERTENSION, ALCOHOLISM, COVID PUI, on 06/20/19 from ED via STRETCHER, accompanied by HOSPITAL STAFF. GOYO ZACARIAS introduced to surroundings, call light, bed controls, phone, TV, temperature control, lights, meal times, smoking policy, visitor policy, side rail policy, bathrooms and showers. Patient Rights given to patient in the handbook.GOYO ZACARIAS verbalizes understanding that [facility] is not responsible for the loss or damage to any personal effects or valuables that are kept in the patients posession during their hospitalization.GOYO ZACARIAS verbalizes understanding of Interdisciplinary Patient Education. Patient and/or family were informed about the Rapid Response Team and its purpose.
[2019-06-21] MEDS ORDERED: 1/2 NS IV SOLUTION 1,000 ML IV PRN (01:09)
[2019-06-21] MEDS ORDERED: ANTACID SUSP 30 ML UDC (MYLANTA) PO PRN (01:15)
[2019-06-21] MEDS ORDERED: ONDANSETRON 4 MG/2 ML (SDV) Z0FRAN IV PRN ×2 (01:15)
[2019-06-21] MEDS ORDERED: ONDANSETRON 4 MG (ZOFRAN) ORAL DISSOLVE TAB SL PRN (01:15)
[2019-06-21] MEDS ORDERED: LORazepam INJ 2 MG/ML (ATIVAN) VIAL IM/IV PRN (01:15)
[2019-06-21] MEDS ORDERED: LORazepam 1 MG (ATIVAN) TAB PO PRN (01:15)
[2019-06-21] MEDS ORDERED: hydrALAZINE (APESOLINE) 20 MG/ML VIAL IV PRN (01:15)
[2019-06-21] MEDS ORDERED: SENNA W/DOCUSATE (SENOKOT S) TABLET PO PRN (01:15)
[2019-06-21] MEDS ORDERED: LORazepam INJ 2 MG/ML (ATIVAN) VIAL IV PRN (01:15)
[2019-06-21] MEDS ORDERED: D5 1/2 NS 1000 ML IV SOLUTION 1,000 ML IV PRN (01:15)
[2019-06-21] MEDS ORDERED: morphine INJ 4 MG/ML 1 ML (VIAL/SYRINGE) IV PRN (01:30)
--- NOTE | 2019-06-21 01:52 | NUR ---
Meds pulled on wrong patient. Meds not given returned to [facility].
[2019-06-21] MEDS: D5 1/2 NS W/KCL 20 MEQ/L 1,000 ML IV SCH ×4 (02:05→21:34)
[2019-06-21 03:53] LABS: BASOPHILS % (AUTO) 0 % (0-10); EOSINOPHILS # (AUTO) 0.1 10^3/uL (0.0-0.3); EOSINOPHILS % (AUTO) 2 % (0-10); HEMATOCRIT 36 % (40-54); HEMOGLOBIN 12.3 G/DL (13.3-17.7); LYMPHOCYTES # (AUTO) 2.7 X 10^3 (1.0-4.0); LYMPHOCYTES % (AUTO) 31 % (12-44); MEAN CORPUSCULAR HEMOGLOBIN 33 PG (25-34); MEAN CORPUSCULAR HGB CONC 35 G/DL (32-36); MEAN CORPUSCULAR VOLUME 96 FL (80-99); MONOCYTES # (AUTO) 1.1 X 10^3 (0.0-1.0); MONOCYTES % (AUTO) 13 % (0-12); NEUTROPHILS # (AUTO) 4.8 X 10^3 (1.8-7.8); NEUTROPHILS % (AUTO) 55 % (42-75); PLATELET COUNT 183 10^3/uL (130-400); RED CELL DISTRIBUTION WIDTH 15.8 % (10.0-14.5); WHITE BLOOD COUNT 8.8 10^3/uL (4.3-11.0)
[2019-06-21 04:13] LABS: ALANINE AMINOTRANSFERASE 127 U/L (0-55); ALBUMIN 3.7 GM/DL (3.2-4.5); ALKALINE PHOSPHATASE 75 U/L (40-136); BILIRUBIN,TOTAL 0.5 MG/DL (0.1-1.0); BUN/CREATININE RATIO 13; CALCIUM 8.4 MG/DL (8.5-10.1); CARBON DIOXIDE 22 MMOL/L (21-32); CHLORIDE 103 MMOL/L (98-107); CHOLESTEROL 140 MG/DL (< 200); CREATININE SERUM 0.69 MG/DL (0.60-1.30); GFR ESTIMATED > 60; GLUCOSE 124 MG/DL (70-105); HDL CHOLESTEROL 49 MG/DL (40-60); POTASSIUM 3.3 MMOL/L (3.6-5.0); SODIUM 136 MMOL/L (135-145); TOTAL PROTEIN 6.8 GM/DL (6.4-8.2); TRIGLYCERIDES 100 MG/DL (<150); VLDL CHOLESTEROL 20 MG/DL (5-40)
[2019-06-21] MEDS: NITROGLYCERIN 2% OINT 1 GM UNIT DOSE PACKET TOP SCH ×3 (05:34→19:34)
--- NOTE | 2019-06-21 05:36 | Diagnostic Imaging Report ---
PROCEDURE: CT angiography Chest TECHNIQUE: After intravenous administration of contrast, thin section axial CT angiography of the chest was performed. 3D MIP reconstructions were made. All CT scans use one or more of the following dose optimizing techniques: automated exposure control, MA and/or KvP adjustment based on a patient size and exam type, or iterative reconstruction. INDICATION: Chest pain and shortness of air. COMPARISON: Chest radiograph of 06/20/2019 FINDINGS: Vasculature: No pulmonary emboli. No CT evidence of pulmonary hypertension or right ventricular strain. Thoracic aorta is normal in caliber. No aortic dissection or pseudoaneurysm. Heart and mediastinum: Visualized thyroid is normal. No supraclavicular, axillary, or intra-thoracic lymphadenopathy. The heart is normal in size without pericardial effusion. Pleura: No pleural effusion or pneumothorax. Lungs and airway: No endoluminal lesion in the trachea or central bronchi. Scattered paraseptal emphysema. There are few scattered centrilobular micronodules with a mid and upper lung zone predominance. Upper abdomen: Allowing for the phase of contrast, no acute abnormality in the upper abdomen is seen. Musculoskeletal: No concerning osseous lesion. IMPRESSION: 1. No pulmonary emboli. 2. Scattered centrilobular micronodules in the upper lobes may be due to an infectious bronchiolitis. Alternative possibilities include respiratory bronchiolitis if the patient has a history of smoking. 3.. Findings are in agreement with the preliminary report. Dictated by: Dictated on workstation # [id number]
[2019-06-21] MEDS ORDERED: POTASSIUM CL 10MEQ/50ML IVPB 50 ML IV SCH (06:45)
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
[2019-06-21] MEDS ORDERED: KCL 20 MEQ TAB (K-DUR) PO ONE (07:45)
[2019-06-21] MEDS: THIAMINE INJECTION 100 MG, FOLIC ACID INJECTION 1 MG, MAGNESIUM SULFATE 2 GM, VITAMIN M... IV SCH ×10 (07:56→17:06)
[2019-06-21 08:21] LABS: BILIRUBIN,URINE NEGATIVE (NEGATIVE); CLARITY,URINE CLEAR; COLOR,URINE YELLOW; GLUCOSE, URINE (UA) NEGATIVE (NEGATIVE); KETONES,URINE NEGATIVE (NEGATIVE); LEUKOCYTE ESTERASE ,URINE NEGATIVE (NEGATIVE); NITRITE,URINE NEGATIVE (NEGATIVE); PROTEIN,URINE NEGATIVE (NEGATIVE)
[2019-06-21 08:30] LABS: BACTERIA,URINE NEGATIVE /HPF; RBC,URINE RARE /HPF
[2019-06-21 08:38] LABS: AMPHETAMINE SCREEN, URINE POSITIVE (NEGATIVE); BARBITURATE SCREEN URINE NEGATIVE (NEGATIVE); BENZODIAZEPINES SCREEN URINE NEGATIVE (NEGATIVE); CANNABINOID SCREEN, URINE POSITIVE (NEGATIVE); COCAINE SCREEN URINE NEGATIVE (NEGATIVE); METHADONE STAT NEGATIVE (NEGATIVE); METHAMPHETAMINE SCREEN URINE S POSITIVE (NEGATIVE); OPIATE SCREEN URINE NEGATIVE (NEGATIVE); OXYCODONE STAT NEGATIVE (NEGATIVE); PROPOXYPHENE STAT NEGATIVE (NEGATIVE); TRICYCLIC ANTIDEPRESSANTS SCRE NEGATIVE (NEGATIVE)
[2019-06-21] MEDS ORDERED: meTOprolol SUCCINATE 100 MG (TOPROL XL) TAB PO SCH (09:00)
[2019-06-21] MEDS ORDERED: ENOXAPARIN 80 MG/0.8 ML (LOVENOX) SYR SC SCH (09:00)
[2019-06-21] MEDS ORDERED: ASPIRIN E.C. 81 MG (ECOTRIN) TAB PO SCH (09:00)
[2019-06-21] MEDS: ADVAIR HFA 115/21 MCG INHALER 8 GM IH SCH ×2 (10:14→19:09)
[2019-06-21] MEDS: RT-ALBUTEROL HFA (PROAIR HFA) 8.5 GM IH SCH ×4 (10:14→21:03)
--- NOTE | 2019-06-21 17:03 | History & Physical-Hospitalist ---
History of Present Illness HPI/Chief Complaint Pt is a 58yoCM with a PMH of alcohol abuse, HTN, an occasional intermittent illicit drug use who presented to the ER due to chest pain. He states that he woke up with chest pain and shortness of breath. He denies any cough but had some subjective fevers at home. He reports the pain woke him from sleep and he has never had anything similar to this. He does smoke 1.5-2ppd. He had HTN but denies any other known history of heart disease. He also regularly smokes marijuana and states occasional methamphetamine use. He denies any pain at this time but it was improved with nitro in the ER. Due to history of subjective f rk and SOB COVID testing was done in the ER. Source: patient Date Seen 06/21/19 Time Seen by a Provider: 17:03 Attending Physician Norma Beard MD PCP Kortney Pineda MD Referring Physician Date of Admission Jun 20, 2019 at 23:30 Home Medications & Allergies Home Medications Reviewed patient Home Medication Reconciliation performed by pharmacy medication reconciliations master hearth technician and/or nursing. Patients Allergies have been reviewed. Allergies Allergies Coded Allergies NKANo Known Allergies (Verified Allergy, Unknown, 04/30/05) Past Dgrlsfe-Trkstn-Qnzkvo Hx Past Med/Social Hx: Reviewed and Corrections made Patient Social History Alcohol Use: Regular Use (HEAVY/DAILY ABUSE FOR YEARS) Number of Drinks Today: FF Alcohol Beverage of Choice: Beer, Vodka Recreational Drug Use: Yes (THC, meth) Drug of Choice: THC Smoking Status: Current Everyday Smoker (2 PPD) Type Used: Cigarettes (2 PPD) 2nd Hand Smoke Exposure: Yes Recent Foreign Travel: No Contact w/other who traveled: No Recent Hopitalizations: No Recent Infectious Disease Expo: No Immunizations Up To Date Tetanus Booster (TDap): Unknown Seasonal Allergies Seasonal Allergies: No Past Medical History Cardiac: Hypertension Neurological: Traumatic Brain Injury Reproductive: No Musculoskeletal: Fractures HEENT: Eye Injury, Double Vision Loss of Vision: Bilateral Hearing Impairment: Denies Psychosocial: Anxiety, Bipolar, Schizophrenia History of Blood Disorders: No Adverse Reaction to Blood Pierson: No Family History Reviewed Nursing Family Hx Patient reports no known family medical history. SOCIAL HISTORY: -PT HAS BEEN HOMELESS, AND A TRANSIENT, AND IN AND OUT OF GROUP HOME. HAS FAMILY IN THE AREA, BUT HAVE NOT ALLOWED HIM TO STAY WITH THEM DUE TO HIS PAST BEHAVIORS. Review of Systems Constitutional: chills, diaphoresis, fever EENTM: no symptoms reported Respiratory: No cough, No orthopnea, No phlegm; short of breath Cardiovascular: chest pain; No Hx of Intervention, No palpitations, No syncope Gastrointestinal: No abdominal pain, No constipation, No diarrhea, No nausea, No vomiting Genitourinary: No decreased output, No dysuria, No frequency Musculoskeletal: no symptoms reported Skin: no symptoms reported Psychiatric/Neurological: No Symptoms Reported Physical Exam Physical Exam Vital Signs Vital Signs - First Documented 06/20/19 20:17 Temp 37.0 Pulse 117 Resp 20 B/P (MAP) 189/112 (137) Pulse Ox 96 O2 Delivery Room Air Capillary Refill : Less Than 3 Seconds Height, Weight, BMI Height: 5'11.00" Weight: 160lbs. oz. 72.802094bj; 20.85 BMI Method:Estimated General Appearance: No Apparent Distress, Other (appears older than stated age) HEENT: PERRL/EOMI, Moist Mucous Membranes; No Scleral Icterus (L), No Scleral Icterus (R) Neck: Full Range of Motion, Supple Respiratory: Chest Non Tender, Lungs Clear, No Accessory Muscle Use, No Respiratory Distress Cardiovascular: Regular Rate, Rhythm, No JVD, No Murmur Gastrointestinal: Normal Bowel Sounds, Non Tender, Soft Extremity: Normal Capillary Refill, No Calf Tenderness, No Pedal Edema Neurologic/Psychiatric: Alert, Oriented x3, Normal Mood/Affect; No Aphasia, No Facial Droop Skin: Normal Color, Warm/Dry, Tattoos/Piercings Results Results/Procedures Labs Laboratory Tests 06/20/19 20:22 06/21/19 03:42 Patient resulted labs reviewed. Imaging: Reviewed Imaging Report Imaging Date of Exam:06/20/19 CHEST 1 VIEW, AP/PA ONLY INDICATION: Chest pain. TECHNIQUE: Single view chest 8:47 PM. CORRELATION STUDY: 12/23/2016 FINDINGS: The heart size, mediastinal configuration and pulmonary vascularity are within normal limits. The lungs are clear with no consolidating infiltrate. There is no significant effusion or pneumothorax. IMPRESSION: 1. Negative for acute abnormality of the chest. Date of Exam:06/20/19 CT ANGIO CHEST W PROCEDURE: CT angiography Chest TECHNIQUE: After intravenous administration of contrast, thin section axial CT angiography of the chest was performed. 3D MIP reconstructions were made. All CT scans use one or more of the following dose optimizing techniques: automated exposure control, MA and/or KvP adjustment based on a patient size and exam type, or iterative reconstruction. INDICATION: Chest pain and shortness of air. COMPARISON: Chest radiograph of 06/20/2019 FINDINGS: Vasculature: No pulmonary emboli. No CT evidence of pulmonary hypertension or right ventricular strain. Thoracic aorta is normal in caliber. No aortic dissection or pseudoaneurysm. Heart and mediastinum: Visualized thyroid is normal. No supraclavicular, axillary, or intra-thoracic lymphadenopathy. The heart is normal in size without pericardial effusion. Pleura: No pleural effusion or pneumothorax. Lungs and airway: No endoluminal lesion in the trachea or central bronchi. Scattered paraseptal emphysema. There are few scattered centrilobular micronodules with a mid and upper lung zone predominance. Upper abdomen: Allowing for the phase of contrast, no acute abnormality in the upper abdomen is seen. Musculoskeletal: No concerning osseous lesion. IMPRESSION: 1. No pulmonary emboli. 2. Scattered centrilobular micronodules in the upper lobes may be due to an infectious bronchiolitis. Alternative possibilities include respiratory bronchiolitis if the patient has a history of smoking. 3.. Findings are in agreement with the preliminary report. Assessment/Plan Admission Diagnosis Chest Pain Admission Status: Observation Assessment and Plan Chest Pain COVID rule out HTN Initial troponin negative, will trend Discussed with Dr Alexandre who will see in consultation COVID19 negative BP well controlled, trend Alcohol abuse Illicit Drug Use Tobacco abuse Last drink 2 days ago Denies history of alcohol withdrawal with 4-5 day gap of drinking Recommended stopping smoking and all iliccit drug use and he states he is not ready and declines any offer for help Clinical Quality Measures AMI/AHF: ASA po Prior to arrival: Yes (EMS) DVT/VTE Risk/Contraindication: Risk Factor Score Per Nursin RFS Level Per Nursing on Admit: 2=Moderate JOHAN AUSTIN MD Jun 21, 2019 17:03
--- NOTE | 2019-06-21 17:30 | NUR ---
PAKO FROM ICU CALLED REPORT TO THIS NURSE LEGAL RECEPTIONIST. TAKING OVER CARE AT THIS TIME.
--- NOTE | 2019-06-21 17:45 | NUR ---
PT REPORTS NO PAIN ANYWHERE INCLUDING CHEST. HE IS WALKING AD DARBY IN ROOM. PT IS FULLY A & O X 4
--- NOTE | 2019-06-21 17:45 | Consultation-Cardiology ---
HPI-Cardiology Cardiology Consultation: Date of Consultation 06/21/19 Date of Admission Attending Physician Norma Beard MD Admitting Physician Kortney Pineda MD Consulting Physician Joesph ALEXANDRE MD HPI: Time Seen by a Provider: 17:00 Chief Complaint: Chest pain This is a 58-year-old patient who was admitted for chest pain for 30 minutes. He has history of alcohol abuse, hypertension and drug abuse. He has history of active smoking. He also uses marijuana and meth. Denies any significant cardiac history. No pertinent family history. The chest pain had subsided when I saw the patient. Denied any other significant complaints. However was also having shortness of breath. COVID testing was done. Review of Systems-Cardiology Review of Systems Constitutional: As described under HPI; No As described under HPI, No no symptoms reported, No chills, No fever, No lightheadedness Eyes: No As described under HPI, No no symptoms reported, No blindness, No blurred vision, No contact lenses, No drainage, No decreased acuity, No foreign body sensation, No pain, No vision change Ears/Nose/Throat: No As described under HPI, No no symptoms reported, No chronic hearing loss, No ear discharge, No ear pain, No nasal drainage, No ulcerations Respiratory: No no symptoms reported; As described under HPI; No As described under HPI, No cough, No orthopnea; shortness of breath; No SOB with excertion Cardiovascular: No no symptoms reported; As described under HPI; No As described under HPI; chest pain; No edema, No irregular heart rate, No lightheadedness, No palpitations Gastrointestinal: No no symptoms reported, No As described under HPI, No abdomen distended, No abdominal pain, No blood streaked bowels, No constipation, No diarrhea, No nausea, No vomiting, No stool coloration changes Genitourinary: No As described under HPI, No burning, No dysuria, No discharge, No frequency, No flank pain, No hematuria, No urgency Skin: No rash, No skin related problems, No ulcerations Psychiatric/Neurological: No anxiety, No depression, No seizure, No focal weakness, No syncope Hematologic: No bleeding abnormalities UUL-Obvzag-Obettw Hx Patient Social History Alcohol Use: Regular Use (HEAVY/DAILY ABUSE FOR YEARS) Recreational Drug Use: Yes (THC) Drug of Choice: THC Smoking Status: Current Everyday Smoker (2 PPD) Type Used: Cigarettes (2 PPD) 2nd Hand Smoke Exposure: Yes Recent Foreign Travel: No Recent Infectious Disease Expo: No Hospitalization with Isolation: Denies Immunizations Up To Date Tetanus Booster (TDap): Unknown Past Medical History PMH As described under Assessment. Family Medical History Family History: Patient reports no known family medical history. Allergies and Home Medications Allergies Coded Allergies: NKANo Known Allergies (Verified Allergy, Unknown, 04/30/05) Home Medications Metoprolol Tartrate 25 Mg Tablet, 25 MG PO BID, (Reported) Naproxen 500 Mg Tablet, 1 EACH PO BID, (Reported) Patient Home Medication List Home Medication List Reviewed: Yes Physical Exam-Cardiology Physical Exam Vital Signs/I&O 06/22/19 06/22/19 04:00 04:35 Temp 36.8 Pulse 65 Resp 21 B/P (MAP) 168/88 (114) Pulse Ox 93 O2 Delivery Room Air Room Air 06/22/19 00:00 Intake Total 840 ml Output Total 600 ml Balance 240 ml Capillary Refill : Less Than 3 Seconds Constitutional: appears stated age, AAO x 3; No apparent distress; well- developed, well-nourished HEENT: PERRL; No discharge; hearing is well preserved, oral hygience is good; No ulceration, No xanthelasmas are seen Neck: No carotid bruit; carotid pulses are 2 + bilaterally Respiratory: chest is bilaterally symmetric, lungs clear to percussion Cardiovascular: regular rate-rhythm, S1 and S2 Gastrointestinal: soft, audible bowel sounds; No spleenomegaly Rectal: deferred Extremities: normal range of motion, non-tender, normal inspection; No cl ubbing, No cyanosis; no lower extremity edema bilateral; No significant edema Neurologic/Psychiatric: no motor/sensory deficits, alert, normal mood/affect, oriented x 3, power is 5/5 both on sides Skin: normal color; No rash, No ulcerations Data Review Labs Laboratory Tests 06/22/19 01:36: Troponin I < 0.028 Microbiology 06/20/19 Blood Culture - Preliminary, Resulted No growth 06/20/19 Influenza Types A,B Antigen (DORYS) - Final, Complete ECG Impression ECG Initial ECG Rhythm: S.Tach Initial ECG Impression: Normal A/P-Cardiology Assessment/Admission Diagnosis Chest pain, Active smoking, Hypertension, Illicit drug abuse, Alcoholism Plan Rule out ACS with serial troponin. The first troponin is negative. However the patient has significant risk factors including hypertension and active smoking, therefore if serial troponin are negative, I will recommend echocardiogram and nuclear stress testing as an inpatient. Echocardiogram, Likely nuclear stress test tomorrow unless troponin are positive then will require coronary angiography. Smoking cessation was strongly recommended. Illicit drug cessation was strongly recommended. Refraining from alcohol was also recommended. Thank you for your consultation. Please call me if you have any questions. Tata Alexandre MD, FACP, FACC, FSCAI, FHRS, CCDS Interventional Cardiology Cardiac Electrophysiology Vascular Medicine and Endovascular Interventions Clinical Quality Measures AMI/AHF: ASA po Prior to arrival: Yes (EMS) DVT/VTE Risk/Contraindication: Risk Factor Score Per Nursin RFS Level Per Nursing on Admit: 2=Moderate Joesph ALEXANDRE MD Jun 21, 2019 17:45
[2019-06-21] MEDS ORDERED: ENOXAPARIN 60 MG/0.6 ML (LOVENOX) SYR SC SCH (21:00)
[2019-06-22] VITALS: BP 157/90
[2019-06-22] MEDS: D5 1/2 NS W/KCL 20 MEQ/L 1,000 ML IV SCH (00:56)
[2019-06-22] MEDS: NITROGLYCERIN 2% OINT 1 GM UNIT DOSE PACKET TOP SCH (01:06)
[2019-06-22 01:07] VITALS: BP 144/92
[2019-06-22] MEDS: RT-ALBUTEROL HFA (PROAIR HFA) 8.5 GM IH SCH (01:38)
[2019-06-22 04:00] VITALS: BP 168/88
--- NOTE | 2019-06-22 05:10 | NUR ---
0510-This RN attempted to redirect pt with no success, pt continued to state "I am leaving and you are not stopping me." this rn attempted speak with pt about the need for further treatment, pt becoming aggressive towards staff. pt stated again "I am leaving and there's nothing you can do." as he's collecting his items to leave.
[2019-06-22] MEDS ORDERED: HALOPERIDOL 5 MG (HALDOL) TAB PO PRN ×2 (05:15→06:30)
--- NOTE | 2019-06-22 05:15 | NUR ---
pt refusing to wait to leave to sign AMA paperwork.
--- NOTE | 2019-06-22 05:30 | NUR ---
0502-pt up out in [place] requesting to leave. pt was advised by this RN, Indigo Vallejo RN, & Christian the warehouse hand that he needed to stay. pt stated that he was not going to. pt pulled out his IV. Began collecting his items. pt called 911 stating that he need a ride to the "halfway, nut house, or some where." pt continued to be want to leave. This RN called Dr. Wang to inform of pt's request to leave. this rn received orders, this rn was advised by Dr. Wang that if pt leaves police department needs notified, & that pt is a harm to himself & others. [place] [employer] was notified 0515-Senior Librarian Christian walked pt down to the ER doors to meet with the [employer], this rn informed Christian that the [employer] needs to know that this pt is a danger to himself & others prior to leaving, this rn was reassured that [employer] would be made aware of pt being a danger to himself & others, pt left with [employer]. 0519-This RN called Dr. Wang to inform him that the pt left with [place] [employer]. This RN was informed again that [employer] must know the pt is a risk to himself & others. 0526-This RN called [employer] Dispatch to make sure that the officers were made aware by Christian that this pt is a danger to himself & others. this RN was informed by dispatch that this pt was dropped off by [employer] at his brothers house.
--- NOTE | 2019-06-22 06:16 | NUR ---
[id number]-This RN received a call from Officer [facility] stating that the pt was dropped of at his brothers & that a protective order would need to be put in place for Mr. Neves to be obtained & held. 1583-This RN called Dr. Wang & informed him of the situation. no further requests were made by Dr. Wang at this time.
--- NOTE | 2019-06-22 08:06 | Discharge Summary ---
Diagnosis/Chief Complaint Date of Admission Jun 20, 2019 at 23:30 Date of Discharge Discharge Date: Jun 22, 2019 Primary Care Kortney Pineda MD Discharge Summary Discharge Physical Exam Allergies: Coded Allergies: CHANTEANo Known Allergies (Verified Allergy, Unknown, 04/30/05) Vitals & I&Os Vital Signs Date Time Temp Pulse Resp B/P (MAP) Pulse Ox O2 Delivery O2 Flow Rate FiO2 06/22/19 04:35 Room Air 06/22/19 04:00 36.8 65 21 168/88 (114) 93 General Appearance: Other (Left AMA prior to today's exam) Hospital Course Pt was admitted due to SOB and chest pain. He was tested for COVID19 and was negative. Symptoms were more concerning for possible underlying cardiac etiology and this cardiology was consulted. Troponins were trended and were negative. Plan was for stress test today but prior to this being done patient elected to leave AMA. He did not wait to sign AMA paperwork but per nursing notes education was given about reasons for staying versus leaving AMA. Labs (last 24 hrs) Laboratory Tests 06/21/19 08:17: Urine Color YELLOW, Urine Clarity CLEAR, Urine pH 7.0, Urine Specific [place] <=1.005, Urine Protein NEGATIVE, Urine Glucose (UA) NEGATIVE, Urine Ketones NEGATIVE, Urine Nitrite NEGATIVE, Urine Bilirubin NEGATIVE, Urine Urobilinogen 2.0, Urine Leukocyte Esterase NEGATIVE, Urine RBC (Auto) NEGATIVE, Urine RBC RARE, Urine WBC NONE, Urine Crystals NONE, Urine Bacteria NEGATIVE, Urine Casts NONE, Urine Mucus NEGATIVE, Urine Culture Indicated NO, Urine Opiates Screen NEGATIVE, Urine Oxycodone Screen NEGATIVE, Urine Methadone Screen NEGATIVE, Urine Propoxyphene Screen NEGATIVE, Urine Barbiturates Screen NEGATIVE, Ur Tricyclic Antidepressants Screen NEGATIVE, Urine Phencyclidine Screen NEGATIVE, Urine Amphetamines Screen POSITIVEH, Urine Methamphetamines Screen POSITIVEH, Urine Benzodiazepines Screen NEGATIVE, Urine Cocaine Screen NEGATIVE, Urine Cannabinoids Screen POSITIVEH 06/22/19 01:36: Troponin I < 0.028 Microbiology 06/20/19 Blood Culture - Preliminary, Resulted No growth 06/20/19 Influenza Types A,B Antigen (DORYS) - Final, Complete Patient resulted labs reviewed. Pending Labs Laboratory Tests 06/22/19 01:36: Troponin I < 0.028 Discussion & Recommendations Discharge Planning: <30 minutes discharge planning Discharge Home Medications: Active Scripts Active Reported Antacid Chewable Tablet (Calcium Carbonate) 500 Mg Tab.chew 500 Mg PO Naprosyn (Naproxen) 500 Mg Tablet 1 Each PO BID Lopressor Po (Metoprolol Tartrate) 25 Mg Tablet 25 Mg PO BID Instructions to patient/family Please see electronic discharge instructions given to patient. Clinical Quality Measures AMI/AHF: ASA po Prior to arrival: Yes (EMS) DVT/VTE Risk/Contraindication: Risk Factor Score Per Nursin RFS Level Per Nursing on Admit: 2=Moderate JOHAN AUSTIN MD Jun 22, 2019 08:06
[2019-06-22] MEDS ORDERED: THIAMINE INJECTION 100 MG, FOLIC ACID INJECTION 1 MG, MAGNESIUM SULFATE 2 GM, VITAMIN M... IV SCH ×5 (09:00)
[2019-06-22] MEDS ORDERED: REGADENOSON 0.4 MG/5 ML SYR (LEXISCAN) IV ONE (10:15)
[2019-06-25 13:38] LABS: PARAINFLU 1 PCR Not Detected (Not Detected); PARAINFLU 2 PCR Not Detected (Not Detected)
== END 2019-06-22 05:30 | disposition other institution (70) ==
LOC: EDUNIT# 20:11 → ER 20:12 → ICU 23:30 → 4TH 06-21 17:25
PROVIDERS: ADMIT Internal Medicine; ATTEND Internal Medicine
DX: R07.9 Chest pain, unspecified (principal); I10 Essential (primary) hypertension; J44.9 Chronic obstructive pulmonary disease, unspecified; G47.30 Sleep apnea, unspecified; F17.210 Nicotine dependence, cigarettes, uncomplicated; F20.9 Schizophrenia, unspecified; F31.9 Bipolar disorder, unspecified; F10.10 Alcohol abuse, uncomplicated; F19.90 Other psychoactive substance use, unspecified, uncomplicated; Z87.820 Personal history of traumatic brain injury
CPT/HCPCS: 36415; 71045; 71275; 80053; 80061; 80306; 80320; 81000; 82150; 82550; 82553; 83615; 83690; 83735; 83874; 83880; 84145; 84484; 85025; 85610; 85652; 85730; 86141; 87040; 87430; 87631; 87635; 87798; 87804; 93005; 93041; 94640; G0378

== ENCOUNTER 2019-10-09 13:20 | Emergency (ER) | payer MEDICAID ==
[~2019-10-09] VITALS: Ht 175 cm; Wt 69.0 kg
[2019-10-09] MEDS ORDERED: NITROGLYCERIN 0.4 MG SL TABS BTL 25'S SL ONE (13:29)
[2019-10-09 13:38] LABS: BASOPHILS # (AUTO) 0.1 10^3/uL (0.0-0.1); BASOPHILS % (AUTO) 1 % (0-10); EOSINOPHILS # (AUTO) 0.1 10^3/uL (0.0-0.3); EOSINOPHILS % (AUTO) 2 % (0-10); HEMATOCRIT 38 % (40-54); HEMOGLOBIN 13.8 G/DL (13.3-17.7); LYMPHOCYTES # (AUTO) 3.3 X 10^3 (1.0-4.0); LYMPHOCYTES % (AUTO) 40 % (12-44); MEAN CORPUSCULAR HEMOGLOBIN 34 PG (25-34); MEAN CORPUSCULAR HGB CONC 36 G/DL (32-36); MEAN CORPUSCULAR VOLUME 95 FL (80-99); MEAN PLATELET VOLUME 10.1 FL (7.4-10.4); MONOCYTES # (AUTO) 0.7 X 10^3 (0.0-1.0); MONOCYTES % (AUTO) 9 % (0-12); NEUTROPHILS # (AUTO) 4.2 X 10^3 (1.8-7.8); NEUTROPHILS % (AUTO) 50 % (42-75); PLATELET COUNT 241 10^3/uL (130-400); WHITE BLOOD COUNT 8.5 10^3/uL (4.3-11.0)
[2019-10-09] MEDS ORDERED: NITROGLYCERIN 0.4 MG SL TABS BTL 25'S SL PRN (13:45)
[2019-10-09 13:49] LABS: INR 0.9 (0.8-1.4); PROTHROMBIN TIME PATIENT 12.9 SEC (12.2-14.7)
--- NOTE | 2019-10-09 13:52 | Diagnostic Imaging Report ---
EXAMINATION: Chest 1 view HISTORY: Chest pain COMPARISON: 06/20/2019 FINDINGS: The lungs are clear without edema or pneumonia. No pleural effusion or pneumothorax. Heart size is normal. IMPRESSION: 1. Clear lungs. Dictated by: Dictated on workstation # [id number]
[2019-10-09 13:59] LABS: ALANINE AMINOTRANSFERASE 25 U/L (0-55); ALBUMIN 4.1 GM/DL (3.2-4.5); ALKALINE PHOSPHATASE 64 U/L (40-136); BILIRUBIN,TOTAL 0.4 MG/DL (0.1-1.0); BUN/CREATININE RATIO 12; CALCIUM 8.1 MG/DL (8.5-10.1); CARBON DIOXIDE 20 MMOL/L (21-32); CHLORIDE 101 MMOL/L (98-107); CREATININE SERUM 0.73 MG/DL (0.60-1.30); GFR ESTIMATED > 60; GLUCOSE 78 MG/DL (70-105); MAGNESIUM 1.8 MG/DL (1.6-2.4); SODIUM 136 MMOL/L (135-145); TOTAL PROTEIN 7.5 GM/DL (6.4-8.2)
--- NOTE | 2019-10-09 14:03 | ED Chest Pain ---
General Chief Complaint: Chest Pain Stated Complaint: CP Nursing Triage Note: PT ARRIVED PER EMS FROM [facility]. PT STATES HAS HAD CHEST PAIN TODAY IMPROVED FROM EARLIER. PT STATES HAS NOT EATEN FOR A COUPLE DAYS STATES HAS DRANK 3 BEERS TODAY SMOKED POT 2 DAYS AGO. PT HAS SL IN L WRIST BY EMS. DENIES SOA, COUGH OR FEVER Nursing Sepsis Screen: No Definite Risk Source: patient, EMS, old records Exam Limitations: no limitations History of Present Illness Date Seen by Provider: Oct 09, 2019 Time Seen by Provider: 13:26 Initial Comments This 59-year-old man presents to the emergency room via EMS with complaints of chest pain. He denies any cough, fever or shortness of breath. Chest is tender to palpation as is the upper abdomen. Patient appears intoxicated and admits to drinking alcohol today and smoking marijuana recently. Patient received aspirin via EMS. EMS reports patient is essentially homeless. Allergies and Home Medications Allergies Coded Allergies: NKANo Known Allergies (Verified Allergy, Unknown, 04/30/05) Home Medications Metoprolol Tartrate 25 Mg Tablet, 25 MG PO BID, (Reported) Naproxen 500 Mg Tablet, 1 EACH PO BID, (Reported) Patient Home Medication List Home Medication List Reviewed: Yes Review of Systems Review of Systems Constitutional: no symptoms reported EENTM: No Symptoms Reported Respiratory: No Symptoms Reported Cardiovascular: See HPI Gastrointestinal: No Symptoms Reported Genitourinary: No Symptoms Reported Musculoskeletal: no symptoms reported Skin: no symptoms reported Psychiatric/Neurological: No Symptoms Reported Endocrine: No Symptoms Reported Hematologic/Lymphatic: No Symptoms Reported Past [place]-Orkjvm-Kxfkct Hx Past Med/Social Hx: Reviewed Nursing Past Med/Soc Hx Patient Social History Alcohol Use: Regular Use Number of Drinks Today: 3 Alcohol Beverage of Choice: Beer, Vodka Recreational Drug Use: No Drug of Choice: THC Smoking Status: Current Everyday Smoker Type Used: Cigarettes 2nd Hand Smoke Exposure: Yes Recent Foreign Travel: No Contact w/Someone Who Travel: No Recent Infectious Disease Expo: No Recent Hopitalizations: No Physical Abuse: No Sexual Abuse: No Immunizations Up To Date Tetanus Booster (TDap): Unknown Seasonal Allergies Seasonal Allergies: No Past Medical History Surgeries: No Respiratory: Yes Pneumonia, Sleep Apnea Cardiac: Yes Hypertension Neurological: Yes (08/2012-ACUTE INTRAPARENCHYMAL BLEED, WITH OLD SUBDURAL BLEED-NO SURGERY) Traumatic Brain Injury Reproductive Disorders: No Genitourinary: No Gastrointestinal: Yes (ELEVATED LFT'S) Musculoskeletal: Yes Fractures Endocrine: No HEENT: Yes Eye Injury, Double Vision Loss of Vision: Bilateral Hearing Impairment: Denies Cancer: No Psychosocial: Yes (ALCOHOLISM; SUBSTANCE ABUSE/THC) Anxiety, Bipolar, Schizophrenia Integumentary: No Blood Disorders: No Adverse Reaction/Blood Tranf: No Family Medical History Patient reports no known family medical history. SOCIAL HISTORY: -PT HAS BEEN HOMELESS, AND A TRANSIENT, AND IN AND OUT OF [facility]. HAS FAMILY IN THE AREA, BUT HAVE NOT ALLOWED HIM TO STAY WITH THEM DUE TO HIS PAST BEHAVIORS. Physical Exam Vital Signs Vital Signs - First Documented 10/09/19 13:20 Temp 36.7 Pulse 93 Resp 18 B/P (MAP) 144/99 (114) Pulse Ox 94 O2 Delivery Room Air Capillary Refill : Less Than 3 Seconds Height, Weight, BMI Height: 5'11.00" Weight: 160lbs. oz. [id number]; 22.00 BMI Method:Estimated General Appearance: No Apparent Distress HEENT: PERRL/EOMI, Normal ENT Inspection Neck: Normal Inspection Respiratory: No Accessory Muscle Use, No Respiratory Distress, Rhonci, Wheezing Cardiovascular: Regular Rate, Rhythm, No Edema, No Murmur, Normal Peripheral Pulses Gastrointestinal: Normal Bowel Sounds, Soft, Tenderness (Generalized upper abdominal tenderness) Extremity: Normal Inspection, Non Tender, No Pedal Edema Neurologic/Psychiatric: Alert, No Motor/Sensory Deficits, reel cutter II-XII Norm as Tested, Other (Appears intoxicated) Skin: Normal Color, Warm/Dry Progress/Results/Core Measures Results/Orders Lab Results Laboratory Tests Test 10/09/19 13:25 10/09/19 15:30 10/09/19 16:25 Range/Units White Blood Count 8.5 4.3-11.0 10^3/uL Red Blood Count 4.03 L 4.35-5.85 10^6/uL Hemoglobin 13.8 13.3-17.7 G/DL Hematocrit 38 L 40-54 % Mean Corpuscular Volume 95 80-99 FL Mean Corpuscular Hemoglobin 34 25-34 PG Mean Corpuscular Hemoglobin Concent 36 32-36 G/DL Red Cell Distribution Width 14.0 10.0-14.5 % Platelet Count 241 130-400 10^3/uL Mean Platelet Volume 10.1 7.4-10.4 FL Neutrophils (%) (Auto) 50 42-75 % Lymphocytes (%) (Auto) 40 12-44 % Monocytes (%) (Auto) 9 0-12 % Eosinophils (%) (Auto) 2 0-10 % Basophils (%) (Auto) 1 0-10 % Neutrophils # (Auto) 4.2 1.8-7.8 X 10^3 Lymphocytes # (Auto) 3.3 1.0-4.0 X 10^3 Monocytes # (Auto) 0.7 0.0-1.0 X 10^3 Eosinophils # (Auto) 0.1 0.0-0.3 10^3/uL Basophils # (Auto) 0.1 0.0-0.1 10^3/uL Prothrombin Time 12.9 12.2-14.7 SEC INR Comment 0.9 0.8-1.4 Activated Partial Thromboplast Time 26 24-35 SEC Sodium Level 136 135-145 MMOL/L Potassium Level 4.0 3.6-5.0 MMOL/L Chloride Level 101 98-107 MMOL/L Carbon Dioxide Level 20 L 21-32 MMOL/L Anion Gap 15 H 5-14 MMOL/L Blood Urea Nitrogen 9 7-18 MG/DL Creatinine 0.73 0.60-1.30 MG/DL Estimat Glomerular Filtration Rate > 60 BUN/Creatinine Ratio 12 Glucose Level 78 70-105 MG/DL Calcium Level 8.1 L 8.5-10.1 MG/DL Corrected Calcium 8.0 L 8.5-10.1 MG/DL Magnesium Level 1.8 1.6-2.4 MG/DL Total Bilirubin 0.4 0.1-1.0 MG/DL Aspartate Amino Transf (AST/SGOT) 40 H 5-34 U/L Alanine Aminotransferase (ALT/SGPT) 25 0-55 U/L Alkaline Phosphatase 64 40-136 U/L Myoglobin 42.8 10.0-92.0 NG/ML Troponin I < 0.028 < 0.028 <0.028 NG/ML C-Reactive Protein High Sensitivity 0.04 0.00-0.50 MG/DL B-Type Natriuretic Peptide < 10.0 <100.0 PG/ML Total Protein 7.5 6.4-8.2 GM/DL Albumin 4.1 3.2-4.5 GM/DL Serum Alcohol 310 *H <10 MG/DL Urine Opiates Screen NEGATIVE NEGATIVE Urine Oxycodone Screen NEGATIVE NEGATIVE Urine Methadone Screen NEGATIVE NEGATIVE Urine Propoxyphene Screen NEGATIVE NEGATIVE Urine Barbiturates Screen NEGATIVE NEGATIVE Ur Tricyclic Antidepressants Screen NEGATIVE NEGATIVE Urine Phencyclidine Screen NEGATIVE NEGATIVE Urine Amphetamines Screen NEGATIVE NEGATIVE Urine Methamphetamines Screen NEGATIVE NEGATIVE Urine Benzodiazepines Screen NEGATIVE NEGATIVE Urine Cocaine Screen NEGATIVE NEGATIVE Urine Cannabinoids Screen NEGATIVE NEGATIVE My Orders Orders - MARCI GONCALVES MD Cbc With Automated Diff (10/09/19 13:31) Magnesium (10/09/19 13:31) Chest 1 View, Ap/Pa Only (10/09/19 13:31) Ekg Tracing (10/09/19 13:31) Comprehensive Metabolic Panel (10/09/19 13:31) Myoglobin Serum (10/09/19 13:31) Protime With Inr (10/09/19 13:31) Partial Thromboplastin Time (10/09/19 13:31) O2 (10/09/19 13:31) Monitor-Rhythm Ecg Trace Only (10/09/19 13:31) Ed Iv/Invasive Line Start (10/09/19 13:31) Troponin I (10/09/19 13:31) Nitroglycerin 0.4 Mg Btl 25's (Nitrostat (10/09/19 13:45) Alcohol (10/09/19 13:31) BNP (10/09/19 13:31) Hs C Reactive Protein (10/09/19 13:31) Drug Screen Stat (Urine) (10/09/19 13:31) Nitroglycerin 0.4 Mg Btl 25's (Nitrostat (10/09/19 13:29) Troponin I (10/09/19 15:30) Rx-Albuterol Inhaler (Rx-Ventolin Hfa) (10/09/19 14:20) Ketorolac Injection (Toradol Injection) (10/09/19 14:30) Ns Iv 1000 Ml (Sodium Chloride 0.9%) (10/09/19 14:20) Medications Given in ED Current Medications Medications Dose Ordered Sig/Ronni Route Start Time Stop Time Status Last Admin Dose Admin Ketorolac Tromethamine 15 mg ONCE ONCE IVP 10/09/19 14:30 10/09/19 14:31 DC 10/09/19 14:34 15 MG Nitroglycerin 0.4 mg UD PRN SL 10/09/19 13:45 10/09/19 16:37 DC 10/09/19 13:30 0.4 MG Vital Signs/I&O 10/09/19 10/09/19 10/09/19 13:20 13:20 16:29 Temp 36.7 Pulse 93 68 Resp 18 18 B/P (MAP) 144/99 (114) 111/68 Pulse Ox 94 99 O2 Delivery Room Air Blood Pressure Mean: 114 Progress Progress Note : Progress Note Patient was given aspirin by EMS. He was given nitroglycerin and Toradol in the ER which resolved his pain. Wheezing was noted on exam and an albuterol inhaler was dispensed. A 2 hour troponin was obtained and was negative. I checked on patient at that time and he stated his pain was improved. He was mostly concerned about taking blood pressure medication. Advised and blood pressure medication is not indicated right now because his blood pressure is normal and use of blood pressure medication could drop his blood pressure too low. Initial ECG Impression Date: Oct 09, 2019 Initial ECG Impression Time: 13:29 Initial ECG Rate: 94 Initial ECG Rhythm: Normal Sinus Initial ECG Intervals: Normal Initial ECG Impression: Normal Comment Normal sinus rhythm with no ST elevation or depression. No abnormal intervals or axis deviation. Diagnostic Imaging Diagonstic Imaging: Xray Plain Films/CT/US/NM/MRI: chest Comments Chest x-ray viewed by me and report reviewed. See report below: NAME: GOYO [facility]ACARIAS [facility] REC#: [id number] PT STATUS: REG ER : 1960 PHYSICIAN: MRACI GONCALVES MD ADMIT DATE: 10/09/19/ER Signed Date of Exam:10/09/19 CHEST 1 VIEW, AP/PA ONLY EXAMINATION: Chest 1 view HISTORY: Chest pain COMPARISON: 06/20/2019 FINDINGS: The lungs are clear without edema or pneumonia. No pleural effusion or pneumothorax. Heart size is normal. IMPRESSION: 1. Clear lungs. Dictated by: Dictated on workstation # [id number] Dict: 10/09/19 1351 Trans: 10/09/19 1351 [facility] [id number] Interpreted by: STEFAN PIZARRO MD Electronically signed by: STEFAN PIZARRO MD 10/09/19 1351 Departure Impression Primary Impression: Chest wall pain Additional Impression: Acute alcohol intoxication Qualified Codes: F10.929 - Alcohol use, unspecified with intoxication, unspecified Disposition: 01 HOME, SELF-CARE Condition: Improved Departure-Patient Inst. Decision time for Depature: 16:19 Referrals: CESAR KIRKLAND MD (PCP/Family) Primary Care Physician Patient Instructions: Chest Pain Add. Discharge Instructions: Follow-up with your primary care provider soon as possible. Work on reducing your consumption of alcohol. You may take Tylenol (acetaminophen) up to 1000 mg every 6 hours as needed for pain. Return to the emergency room if you have persistent or recurring chest pain or if you develop new symptoms such as fever, vomiting, etc. All discharge instructions reviewed with patient and/or family. Voiced understanding. Copy Copies To 1: CESAR KIRKLAND MD, JOSHUA T MD Oct 09, 2019 14:03
[2019-10-09] MEDS ORDERED: RX-ALBUTEROL INHALER (VENTOLIN HFA) 18 GM IH STA (14:20)
[2019-10-09] MEDS ORDERED: NS IV 1000 ML 1,000 ML IV SCH (14:20)
[2019-10-09] MEDS ORDERED: KETOROLAC 30 MG/ML VIAL IVP ONE (14:30)
--- NOTE | 2019-10-09 15:30 | NUR ---
2ND TROPONIN DRAWN
[2019-10-09 16:29] VITALS: BP 111/68
[2019-10-09 16:57] LABS: AMPHETAMINE SCREEN, URINE NEGATIVE (NEGATIVE); BARBITURATE SCREEN URINE NEGATIVE (NEGATIVE); BENZODIAZEPINES SCREEN URINE NEGATIVE (NEGATIVE); CANNABINOID SCREEN, URINE NEGATIVE (NEGATIVE); COCAINE SCREEN URINE NEGATIVE (NEGATIVE); METHADONE STAT NEGATIVE (NEGATIVE); METHAMPHETAMINE SCREEN URINE S NEGATIVE (NEGATIVE); OPIATE SCREEN URINE NEGATIVE (NEGATIVE); OXYCODONE STAT NEGATIVE (NEGATIVE); PROPOXYPHENE STAT NEGATIVE (NEGATIVE); TRICYCLIC ANTIDEPRESSANTS SCRE NEGATIVE (NEGATIVE)
== END 2019-10-09 16:36 | disposition home or self-care (01) ==
LOC: EDUNIT# 13:23 → ER 13:26
DX: R07.89 Other chest pain (principal); F10.229 Alcohol dependence with intoxication, unspecified; I10 Essential (primary) hypertension; F17.210 Nicotine dependence, cigarettes, uncomplicated; Z87.820 Personal history of traumatic brain injury; Y90.8 Blood alcohol level of 240 mg/100 ml or more
CPT/HCPCS: 36415; 71045; 80053; 80306; 80320; 83735; 83874; 83880; 84484; 85025; 85610; 85730; 86141; 93005; 93041

== ENCOUNTER 2019-11-20 07:34 | Emergency (ER) | payer MEDICAID ==
[~2019-11-20] VITALS: Ht 175.2 cm; Wt 70.3 kg
[2019-11-20 07:34] VITALS: BP 179/107
[2019-11-20 08:03] LABS: BASOPHILS % (AUTO) 0 % (0-10); EOSINOPHILS # (AUTO) 0.4 10^3/uL (0.0-0.3); EOSINOPHILS % (AUTO) 4 % (0-10); HEMATOCRIT 42 % (40-54); HEMOGLOBIN 15.3 G/DL (13.3-17.7); LYMPHOCYTES # (AUTO) 2.7 X 10^3 (1.0-4.0); LYMPHOCYTES % (AUTO) 25 % (12-44); MEAN CORPUSCULAR HEMOGLOBIN 34 PG (25-34); MEAN CORPUSCULAR HGB CONC 37 G/DL (32-36); MEAN CORPUSCULAR VOLUME 93 FL (80-99); MEAN PLATELET VOLUME 10.3 FL (7.4-10.4); MONOCYTES # (AUTO) 1.2 X 10^3 (0.0-1.0); MONOCYTES % (AUTO) 11 % (0-12); NEUTROPHILS # (AUTO) 6.7 X 10^3 (1.8-7.8); NEUTROPHILS % (AUTO) 61 % (42-75); PLATELET COUNT 225 10^3/uL (130-400)
[2019-11-20 08:08] LABS: ALBUMIN 4.5 GM/DL (3.2-4.5); CHLORIDE 92 MMOL/L (98-107); SODIUM 128 MMOL/L (135-145)
[2019-11-20 08:09] LABS: CALCIUM 9.9 MG/DL (8.5-10.1)
[2019-11-20 08:11] LABS: GLUCOSE 92 MG/DL (70-105); TOTAL PROTEIN 8.2 GM/DL (6.4-8.2)
[2019-11-20 08:12] LABS: BILIRUBIN,TOTAL 0.7 MG/DL (0.1-1.0); CARBON DIOXIDE 23 MMOL/L (21-32)
[2019-11-20 08:15] LABS: ALKALINE PHOSPHATASE 64 U/L (40-136); CREATININE SERUM 0.77 MG/DL (0.60-1.30); GFR ESTIMATED > 60
[2019-11-20 08:16] LABS: BUN/CREATININE RATIO 10
[2019-11-20 08:17] LABS: MAGNESIUM 1.6 MG/DL (1.6-2.4); SALICYLATE < 5.0 MG/DL (5.0-20.0)
[2019-11-20 08:18] LABS: ACETAMINOPHEN < 10 UG/ML (10-30); ALANINE AMINOTRANSFERASE 42 U/L (0-55)
[2019-11-20 08:38] LABS: TSH (THYROID ANALYZER) 3.25 UIU/ML (0.35-4.94)
--- NOTE | 2019-11-20 08:50 | ED Psychosocial ---
General Chief Complaint: Psych/Social Disorder Stated Complaint: HIGH BP Nursing Triage Note: Pt to ED via EMS. EMS reports pt is homeless and there are rumors are going around, "That no one wants him." Pt reports wanting to go to the shelter to get an mergers and acquisitions attorney to get admitted into a mental health facility. Pt reports not feeling safe in [place] and thinks people are out to get pt. Pt reports, "People think I'm a snitch." During assessment pt reports feeling suicidal and has been trying to obtain as many Oxycontin as possible and would plan to, "Down them with vodka." Source: patient, old records Exam Limitations: no limitations History of Present Illness Date Seen by Provider: Nov 20, 2019 Time Seen by Provider: 07:55 Initial Comments This 59-year-old man presents to the emergency room with complaints of suicidal ideation and paranoia. He reports a history of schizoaffective disorder and bipolar disorder. He has not been medicated in over a year according to his report. He has a significant incarceration history as well. He is presently paranoid that rumors are going around about him being a snitch and that his life is now in danger because people are angry with him. He states "I'm paranoid as hell". He is presently homeless and does not have a consistent place to stay or sleep. He reports he recently tried to buy oxycodone so that he could "slam them with vodka" in an attempt to take his life. He states "I just want to get it over with." He has had a prior admission at [facility] in [place] for behavioral health reasons. Patient admits to marijuana use and regular alcohol use. He reports drinking "a few beers" more days than not. His last alcohol consumption was "a few beers" last night. He states he drinks alcohol when it is available. He denies ever experiencing withdrawal hallucinations or seizures. He denies having any trouble with withdrawal symptoms when he abstains from alcohol for a few days. I inquired what might happen to the patient if he left the hospital today. He states "I will break the law to go to shelter before I go out in public again." Patient states he has talked to the police about his paranoia. His plan is morning was to seek help with the police or by going to shelter. He thought then he could get admission to a mental health facility. He arrives here via EMS. Review of patient's chart reveals he has been on olanzapine in the past. He takes no medications at present. Patient additionally has history of traumatic brain injury in 2012. EMS notes hypertension. Patient has a history of hypertension but is not presently taking medication for it. Allergies and Home Medications Allergies Coded Allergies: NKANo Known Allergies (Verified Allergy, Unknown, 04/30/05) Home Medications Metoprolol Tartrate 25 Mg Tablet, 25 MG PO BID, (Reported) Naproxen 500 Mg Tablet, 1 EACH PO BID, (Reported) Patient Home Medication List Home Medication List Reviewed: Yes Review of Systems Constitutional: no symptoms reported EENTM: no symptoms reported Respiratory: no symptoms reported Cardiovascular: no symptoms reported Gastrointestinal: no symptoms reported Genitourinary: no symptoms reported Musculoskeletal: no symptoms reported Skin: no symptoms reported Psychiatric/Neurological: See HPI Past Zoweoxt-Biszvk-Ryzrmd Hx Past Med/Social Hx: Reviewed Nursing Past Med/Soc Hx Patient Social History Alcohol Use: Regular Use Number of Drinks Today: FF Alcohol Beverage of Choice: Beer, Vodka Recreational Drug Use: Yes Drug of Choice: THC, meth Smoking Status: Current Everyday Smoker Type Used: Cigarettes 2nd Hand Smoke Exposure: Yes Recent Foreign Travel: No Contact w/Someone Who Travel: No Recent Infectious Disease Expo: No Recent Hopitalizations: No Physical Abuse: No Sexual Abuse: No Mistreated: No Fear: Yes ("people around town") Immunizations Up To Date Tetanus Booster (TDap): Unknown Seasonal Allergies Seasonal Allergies: No Past Medical History Surgeries: No Respiratory: Yes Pneumonia, Sleep Apnea, COPD Cardiac: Yes Hypertension Neurological: Yes (08/2012-ACUTE INTRAPARENCHYMAL BLEED, WITH OLD SUBDURAL B LEED-NO SURGERY) Traumatic Brain Injury Reproductive Disorders: No Genitourinary: No Gastrointestinal: Yes (ELEVATED LFT'S) Musculoskeletal: Yes Fractures Endocrine: No HEENT: Yes Eye Injury, Double Vision Loss of Vision: Bilateral Hearing Impairment: Denies Cancer: No Psychosocial: Yes (ALCOHOLISM; SUBSTANCE ABUSE/THC) Anxiety, Bipolar, Schizophrenia (schizoaffective disorder) Integumentary: No Blood Disorders: No Adverse Reaction/Blood Tranf: No Family Medical History Patient reports no known family medical history. SOCIAL HISTORY: -PT HAS BEEN HOMELESS, AND A TRANSIENT, AND IN AND OUT OF SNF. HAS FAMILY IN THE AREA, BUT HAVE NOT ALLOWED HIM TO STAY WITH THEM DUE TO HIS PAST BEHAVIORS. Physical Exam Vital Signs - First Documented 11/20/19 07:34 Temp 35.6 Pulse 103 Resp 25 B/P (MAP) 179/107 (131) Pulse Ox 99 O2 Delivery Room Air Capillary Refill : Less Than 3 Seconds Height, Weight, BMI Height: 5'11.00" Weight: 160lbs. oz. 72.831297do; 22.00 BMI Method:Estimated General Appearance: WD/WN, no apparent distress, other (disheveled) HEENT: PERRL/EOMI, normal ENT inspection, other (poor dentition) Neck: normal inspection Respiratory: no respiratory distress, no accessory muscle use, wheezing Cardiovascular: no edema, tachycardia Gastrointestinal: normal bowel sounds, non tender, soft Extremities: normal inspection, no pedal edema Neurologic/Psychiatric: glaciologist II-XII nml as tested, no motor/sensory deficits, alert, oriented x 3 Appearance/Memory: appropriate insight, disheveled Behavior/Eye Contact: cooperative, good eye contact, normal speech Thoughts/Hallucinations: no apparent hallucination, other (suicidal ideation with plan. No hallucinations or psychosis.) Skin: normal color, warm/dry Progress/Results/Core Measures Results/Orders Lab Results Laboratory Tests Test 11/20/19 07:35 11/20/19 08:45 Range/Units White Blood Count 11.0 4.3-11.0 10^3/uL Red Blood Count 4.53 4.35-5.85 10^6/uL Hemoglobin 15.3 13.3-17.7 G/DL Hematocrit 42 40-54 % Mean Corpuscular Volume 93 80-99 FL Mean Corpuscular Hemoglobin 34 25-34 PG Mean Corpuscular Hemoglobin Concent 37 H 32-36 G/DL Red Cell Distribution Width 14.1 10.0-14.5 % Platelet Count 225 130-400 10^3/uL Mean Platelet Volume 10.3 7.4-10.4 FL Neutrophils (%) (Auto) 61 42-75 % Lymphocytes (%) (Auto) 25 12-44 % Monocytes (%) (Auto) 11 0-12 % Eosinophils (%) (Auto) 4 0-10 % Basophils (%) (Auto) 0 0-10 % Neutrophils # (Auto) 6.7 1.8-7.8 X 10^3 Lymphocytes # (Auto) 2.7 1.0-4.0 X 10^3 Monocytes # (Auto) 1.2 H 0.0-1.0 X 10^3 Eosinophils # (Auto) 0.4 H 0.0-0.3 10^3/uL Basophils # (Auto) 0.0 0.0-0.1 10^3/uL Sodium Level 128 L 135-145 MMOL/L Potassium Level 4.0 3.6-5.0 MMOL/L Chloride Level 92 L 98-107 MMOL/L Carbon Dioxide Level 23 21-32 MMOL/L Anion Gap 13 5-14 MMOL/L Blood Urea Nitrogen 8 7-18 MG/DL Creatinine 0.77 0.60-1.30 MG/DL Estimat Glomerular Filtration Rate > 60 BUN/Creatinine Ratio 10 Glucose Level 92 70-105 MG/DL Calcium Level 9.9 8.5-10.1 MG/DL Corrected Calcium 9.5 8.5-10.1 MG/DL Magnesium Level 1.6 1.6-2.4 MG/DL Total Bilirubin 0.7 0.1-1.0 MG/DL Aspartate Amino Transf (AST/SGOT) 48 H 5-34 U/L Alanine Aminotransferase (ALT/SGPT) 42 0-55 U/L Alkaline Phosphatase 64 40-136 U/L B-Type Natriuretic Peptide 12.4 <100.0 PG/ML Total Protein 8.2 6.4-8.2 GM/DL Albumin 4.5 3.2-4.5 GM/DL TSH [place] Testing 3.25 0.35-4.94 UIU/ML Salicylates Level < 5.0 L 5.0-20.0 MG/DL Acetaminophen Level < 10 L 10-30 UG/ML Serum Alcohol < 10 <10 MG/DL Urine Color YELLOW Urine Clarity CLEAR Urine pH 6.0 5-9 Urine Specific Helen <=1.005 1.016-1.022 Urine Protein NEGATIVE NEGATIVE Urine Glucose (UA) NEGATIVE NEGATIVE Urine Ketones 1+ H NEGATIVE Urine Nitrite NEGATIVE NEGATIVE Urine Bilirubin NEGATIVE NEGATIVE Urine Urobilinogen 1.0 < = 1.0 MG/DL Urine Leukocyte Esterase NEGATIVE NEGATIVE Urine RBC (Auto) TRACE-I NEGATIVE Urine RBC 0-2 /HPF Urine WBC NONE /HPF Urine Squamous Epithelial Cells RARE /HPF Urine Crystals NONE /LPF Urine Bacteria NEGATIVE /HPF Urine Casts NONE /LPF Urine Mucus NEGATIVE /LPF Urine Culture Indicated NO Urine Opiates Screen NEGATIVE NEGATIVE Urine Oxycodone Screen NEGATIVE NEGATIVE Urine Methadone Screen NEGATIVE NEGATIVE Urine Propoxyphene Screen NEGATIVE NEGATIVE Urine Barbiturates Screen NEGATIVE NEGATIVE Ur Tricyclic Antidepressants Screen NEGATIVE NEGATIVE Urine Phencyclidine Screen NEGATIVE NEGATIVE Urine Amphetamines Screen POSITIVE H NEGATIVE Urine Methamphetamines Screen POSITIVE H NEGATIVE Urine Benzodiazepines Screen NEGATIVE NEGATIVE Urine Cocaine Screen NEGATIVE NEGATIVE Urine Cannabinoids Screen POSITIVE H NEGATIVE My Orders Orders - MARCI GONCALVES MD Acetaminophen (11/20/19 07:56) Alcohol (11/20/19 07:56) BNP (11/20/19 07:56) Cbc With Automated Diff (11/20/19 07:56) Comprehensive Metabolic Panel (11/20/19 07:56) Drug Screen Stat (Urine) (11/20/19 07:56) Magnesium (11/20/19 07:56) Salicylate (11/20/19 07:56) Thyroid Analyzer (11/20/19 07:56) Ua Culture If Indicated (11/20/19 07:56) Ed Iv/Invasive Line Start (11/20/19 07:56) Ekg Tracing (11/20/19 07:56) Ns Iv 1000 Ml (Sodium Chloride 0.9%) (11/20/19 08:52) Metoprolol Tartrate (Ir) Tab (Lopressor (11/20/19 09:15) Medications Given in ED Current Medications Medications Dose Ordered Sig/Ronni Route Start Time Stop Time Status Last Admin Dose Admin Metoprolol Tartrate 50 mg ONCE ONCE PO 11/20/19 09:15 11/20/19 09:16 DC 11/20/19 09:39 50 MG Vital Signs/I&O 11/20/19 07:34 Temp 35.6 Pulse 103 Resp 25 B/P (MAP) 179/107 (131) Pulse Ox 99 O2 Delivery Room Air Blood Pressure Mean: 131 Progress Progress Note #1: Time: 09:12 Progress Note Patient admits to suicidal ideation with plan (overdose with alcohol consumption and prescription opioids). Urinalysis and drug screen are pending as patient has not yet been able to produce urine. He is receiving a liter of IV fluid. He remains hypertensive with her present blood pressure 163/112 and a heart rate of 98. He has been on beta blockers for blood pressure treatment in the past. I will give him a dose of metoprolol now. Patient has been admitted at [facility] in [place] for psychiatric care previously. They currently have no bed availability. [facility] also does not have any bed availability. [facility] in [place], [place] does have bed availability and will review his chart. Progress Note #2: Time: 12:28 Progress Note While patient was awaiting chart review from [facility], he decided to leave AGAINST MEDICAL ADVICE. It was discovered he had been hiding a knife in his sweat pants. He was allowed to leave without argument as he possessed a potentially dangerous weapon. Police were notified that he left AMA. [facility] was updated. Initial ECG Impression Date: Nov 20, 2019 Initial ECG Impression Time: 08:00 Initial ECG Rate: 99 Initial ECG Rhythm: Normal Sinus Initial ECG Intervals: Normal Initial ECG Impression: Normal Comment Normal sinus rhythm with no ST elevation or depression. No abnormal intervals or axis deviation. Departure Impression Primary Impression: Suicidal ideation Additional Impressions: Paranoia Hypertension Qualified Codes: I10 - Essential (primary) hypertension Polysubstance abuse Disposition: 07 AGAINST MEDICAL ADVICE Condition: Against Medical Advice Departure-Patient Inst. Referrals: CESAR KIRKLAND MD (PCP/Family) Primary Care Physician MARCI GONCALVES MD Nov 20, 2019 08:50
[2019-11-20] MEDS ORDERED: NS IV 1000 ML 1,000 ML IV SCH (08:52)
[2019-11-20] MEDS ORDERED: meTOprolol TARTRATE 50 MG (LOPRESSOR) TAB PO ONE (09:15)
[2019-11-20 09:17] LABS: BILIRUBIN,URINE NEGATIVE (NEGATIVE); CLARITY,URINE CLEAR; COLOR,URINE YELLOW; GLUCOSE, URINE (UA) NEGATIVE (NEGATIVE); KETONES,URINE 1+ (NEGATIVE); LEUKOCYTE ESTERASE ,URINE NEGATIVE (NEGATIVE); NITRITE,URINE NEGATIVE (NEGATIVE); PROTEIN,URINE NEGATIVE (NEGATIVE)
[2019-11-20 09:25] LABS: BACTERIA,URINE NEGATIVE /HPF; RBC,URINE 0-2 /HPF; SQUAMOUS EPITHELIAL CELL,UR RARE /HPF
[2019-11-20 09:29] LABS: AMPHETAMINE SCREEN, URINE POSITIVE (NEGATIVE); BARBITURATE SCREEN URINE NEGATIVE (NEGATIVE); BENZODIAZEPINES SCREEN URINE NEGATIVE (NEGATIVE); CANNABINOID SCREEN, URINE POSITIVE (NEGATIVE); COCAINE SCREEN URINE NEGATIVE (NEGATIVE); METHADONE STAT NEGATIVE (NEGATIVE); METHAMPHETAMINE SCREEN URINE S POSITIVE (NEGATIVE); OPIATE SCREEN URINE NEGATIVE (NEGATIVE); OXYCODONE STAT NEGATIVE (NEGATIVE); PROPOXYPHENE STAT NEGATIVE (NEGATIVE); TRICYCLIC ANTIDEPRESSANTS SCRE NEGATIVE (NEGATIVE)
--- NOTE | 2019-11-20 09:33 | NUR ---
chart faxed to [facility] for review
--- NOTE | 2019-11-20 12:28 | NUR ---
Pt now confrontational and packing bag to leave. This nurse noted a large knife in the band of pt's sweatpants. [employer] called and notified at this time.
== END 2019-11-20 12:28 | disposition left against medical advice (07) ==
LOC: EDUNIT# 07:34 → ER 07:35
DX: R45.851 Suicidal ideations (principal); F22 Delusional disorders; I10 Essential (primary) hypertension; F19.10 Other psychoactive substance abuse, uncomplicated; Z87.820 Personal history of traumatic brain injury; F17.210 Nicotine dependence, cigarettes, uncomplicated
CPT/HCPCS: 36415; 80053; 80306; 80320; 80329; 81000; 83735; 83880; 84443; 85025

== ENCOUNTER 2019-11-29 08:53 | Emergency (ER) | payer MEDICAID ==
[~2019-11-29] VITALS: Ht 175 cm; Wt 70.0 kg
[2019-11-29] MEDS ORDERED: METO-333 PO (11:09)
[2019-11-29] MEDS ORDERED: RT-ALBUINH IH (11:09)
--- NOTE | 2019-11-29 11:09 | ED Upper Extremity ---
General Chief Complaint: Upper Extremity Stated Complaint: KNOT ON RIGHT WRIST Nursing Triage Note: PT HAS A LARGE KNOT ON THE BACK OF HIS RT WRIST, STATES IT HAS BEEN THERE 6-7 YEARS AND IS GETTING BIGGER, DENIES PAIN, FINGERS AND HAND "DON'T WORK RIGHT" ANYMORE. Nursing Sepsis Screen: No Definite Risk Source: patient Exam Limitations: no limitations History of Present Illness Date Seen by Provider: Nov 29, 2019 Time Seen by Provider: 11:04 Initial Comments To ER with reports of a knot to the dorsum of the right wrist present for 6-7 years seems to be getting bigger. He would also like a refill of his inhaler and and blood pressure medication Onset: other Severity: moderate Pain/Injury Location: right wrist Modifying Factors: Worse With Movement Allergies and Home Medications Allergies Coded Allergies: NKANo Known Allergies (Verified Allergy, Unknown, 04/30/05) Home Medications Metoprolol Tartrate 25 Mg Tablet, 25 MG PO BID, (Reported) Naproxen 500 Mg Tablet, 1 EACH PO BID, (Reported) Patient Home Medication List Home Medication List Reviewed: Yes Review of Systems Constitutional: see HPI EENTM: see HPI Respiratory: no symptoms reported Cardiovascular: no symptoms reported Genitourinary: no symptoms reported Musculoskeletal: see HPI Skin: no symptoms reported Psychiatric/Neurological: No Symptoms Reported Past Hhzrntp-Apjmau-Pikevk Hx Patient Social History Alcohol Use: Regular Use Number of Drinks Today: FF Alcohol Beverage of Choice: Beer, Vodka Recreational Drug Use: Yes Drug of Choice: THC, HX OF IV meth Smoking Status: Current Everyday Smoker Type Used: Cigarettes 2nd Hand Smoke Exposure: Yes Recent Foreign Travel: No Contact w/Someone Who Travel: No Recent Infectious Disease Expo: No Recent Hopitalizations: Yes (IN 2019) Immunizations Up To Date Tetanus Booster (TDap): Unknown Seasonal Allergies Seasonal Allergies: No Past Medical History Surgeries: No Respiratory: Yes Pneumonia, Sleep Apnea, COPD Cardiac: Yes Hypertension Neurological: Yes (08/2012-ACUTE INTRAPARENCHYMAL BLEED, WITH OLD SUBDURAL BLEED-NO SURGERY) Traumatic Brain Injury Reproductive Disorders: No Genitourinary: No Gastrointestinal: Yes (ELEVATED LFT'S) Musculoskeletal: Yes Fractures Endocrine: No HEENT: Yes Eye Injury, Double Vision Loss of Vision: Bilateral Hearing Impairment: Denies Cancer: No Psychosocial: Yes (ALCOHOLISM; SUBSTANCE ABUSE/THC) Anxiety, Bipolar, Schizophrenia Integumentary: No Blood Disorders: No Adverse Reaction/Blood Tranf: No Family Medical History Patient reports no known family medical history. SOCIAL HISTORY: -PT HAS BEEN HOMELESS, AND A TRANSIENT, AND IN AND OUT OF HALF-WAY. HAS FAMILY IN THE AREA, BUT HAVE NOT ALLOWED HIM TO STAY WITH THEM DUE TO HIS PAST BEHAVIORS. Physical Exam Vital Signs Vital Signs - First Documented 11/29/19 09:07 Temp 36.8 Pulse 107 Resp 18 B/P (MAP) 145/93 (110) Pulse Ox 97 O2 Delivery Room Air Capillary Refill : Less Than 3 Seconds Height, Weight, BMI Height: 5'11.00" Weight: 160lbs. oz. 72.554006oq; 22.00 BMI Method:Estimated General Appearance: WD/WN, no apparent distress Respiratory: no respiratory distress, no accessory muscle use Shoulder: normal inspection, non-tender Elbow/Forearm: normal inspection, non-tender, no evidence of injury Wrist: Yes nodules (there is a marble sized nodule to the dorsum of the right wrist. Believed to be a ganglion cyst after reviewing fluid on bedside ultrasound. Anesthetized with 0.2 mL of lidocaine without epinephrine and then an 18-gauge needle was inserted into it. 1.5 mL of clear jellylike material was aspirated) Hand: normal inspection, non-tender Neurologic/Tendon: normal sensation Neurologic/Psychiatric: alert, normal mood/affect, oriented x 3 Skin: normal color, warm/dry Progress/Results/Core Measures Results/Orders Vital Signs/I&O 11/29/19 09:07 Temp 36.8 Pulse 107 Resp 18 B/P (MAP) 145/93 (110) Pulse Ox 97 O2 Delivery Room Air Blood Pressure Mean: 110 Departure Impression Primary Impression: Ganglion cyst Disposition: 01 HOME, SELF-CARE Condition: Stable Departure-Patient Inst. Decision time for Depature: 11:08 Referrals: NO,LOCAL PHYSICIAN (PCP) Primary Care Physician JAN SHIN MD Patient Instructions: Ganglion Cyst Add. Discharge Instructions: 1. Return to ER for any concerns 2. Follow-up with orthopedics to have this removed if he would like to have this removed. All discharge instructions reviewed with patient and/or family. Voiced understanding. Scripts Metoprolol Tartrate (Metoprolol Tartrate) 25 Mg Tablet 25 MG PO BID, #60 TAB Prov: HONG PATEL [employer] 11/29/19 Albuterol Sulfate (PROAIR HFA) 1 Puff Puff 2 PUFF IH Q4H PRN for WHEEZING, #1 PUFF 1 PUFF = 90 MCG Prov: HONG PAETL APRN 11/29/19 HONG PATEL APRN Nov 29, 2019 11:09
[2019-11-29 11:23] VITALS: BP 145/93
== END 2019-11-29 11:23 | disposition home or self-care (01) ==
LOC: EDUNIT# 08:53 → ER 08:55
DX: M67.431 Ganglion, right wrist (principal); I10 Essential (primary) hypertension; F17.210 Nicotine dependence, cigarettes, uncomplicated; Z87.820 Personal history of traumatic brain injury; Z20.828 Contact with and (suspected) exposure to other viral communicable diseases
CPT/HCPCS: 10160

== ENCOUNTER 2019-12-10 13:00 | Emergency (ER) | payer MEDICAID ==
[~2019-12-10] VITALS: Ht 177.8 cm; Wt 81.6 kg
[~2019-12-10 13:00] MED LIST changes: +METO-333 PO; +RT-ALBUINH IH
[2019-12-10] MEDS ORDERED: NS IV 1000 ML 1,000 ML IV SCH (13:09)
--- NOTE | 2019-12-10 13:09 | ED Psychosocial ---
General Stated Complaint: CONFUSION History of Present Illness Date Seen by Provider: Dec 10, 2019 Time Seen by Provider: 13:09 Initial Comments 59-year-old male brought in due to some confusion. Patient was at [facility] with the PD was called. Upon arrival patient seems mildly confused. He does admit to having alcohol and meth. Patient answers very few questions outside of stating yes, no. Patient does have a known mental health history with possible schizophrenia. He does not complain of anything but does mildly grown if he presses on his abdomen. Allergies and Home Medications Allergies Coded Allergies: NKANo Known Allergies (Verified Allergy, Unknown, 04/30/05) Home Medications Albuterol Sulfate 1 Puff Puff, 2 PUFF IH Q4H PRN for WHEEZING 1 PUFF = 90 MCG Prescribed by: HONG PATEL on 11/29/19 1109 Metoprolol Tartrate 25 Mg Tablet, 25 MG PO BID, (Reported) Metoprolol Tartrate 25 Mg Tablet, 25 MG PO BID Prescribed by: HONG PATEL on 11/29/19 1109 Naproxen 500 Mg Tablet, 1 EACH PO BID, (Reported) Patient Home Medication List Home Medication List Reviewed: Yes Review of Systems ROS-Unable to Obtain: limited based on patient's clinical condition Constitutional: no symptoms reported Respiratory: no symptoms reported Cardiovascular: no symptoms reported Gastrointestinal: No abdominal pain, No nausea, No vomiting Musculoskeletal: no symptoms reported Skin: no symptoms reported Psychiatric/Neurological: See HPI Past Bqpaqbk-Blcruv-Gdxzwz Hx Past Med/Social Hx: Reviewed Nursing Past Med/Soc Hx Patient Social History Alcohol Beverage of Choice: Beer, Vodka Drug of Choice: THC, HX OF IV meth Type Used: Cigarettes 2nd Hand Smoke Exposure: Yes Recent Hopitalizations: Yes (IN 2019) Immunizations Up To Date Tetanus Booster (TDap): Unknown Seasonal Allergies Seasonal Allergies: No Past Medical History Surgeries: No Respiratory: Yes Pneumonia, Sleep Apnea, COPD Cardiac: Yes Hypertension Neurological: Yes (08/2012-ACUTE INTRAPARENCHYMAL BLEED, WITH OLD SUBDURAL BLEED-NO SURGERY) Traumatic Brain Injury Reproductive Disorders: No Genitourinary: No Gastrointestinal: Yes (ELEVATED LFT'S) Musculoskeletal: Yes Fractures Endocrine: No HEENT: Yes Eye Injury, Double Vision Loss of Vision: Bilateral Hearing Impairment: Denies Cancer: No Psychosocial: Yes (ALCOHOLISM; SUBSTANCE ABUSE/THC) Anxiety, Bipolar, Schizophrenia Integumentary: No Blood Disorders: No Adverse Reaction/Blood Tranf: No Family Medical History Patient reports no known family medical history. SOCIAL HISTORY: -PT HAS BEEN HOMELESS, AND A TRANSIENT, AND IN AND OUT OF [facility]. HAS FAMILY IN THE AREA, BUT HAVE NOT ALLOWED HIM TO STAY WITH THEM DUE TO HIS PAST BEHAVIORS. Physical Exam Vital Signs - First Documented 12/10/19 13:09 Temp 36.8 Pulse 90 Resp 15 B/P (MAP) 126/83 (97) Pulse Ox 95 O2 Delivery Room Air Capillary Refill : Height, Weight, BMI Height: 5'11.00" Weight: 160lbs. oz. 72.591440se; 22.00 BMI Method:Estimated General Appearance: no apparent distress, other (disheveled, unkempt) HEENT: other (for didn't patient, mucous membranes are moist) Neck: full range of motion, supple Respiratory: lungs clear, normal breath sounds Cardiovascular: normal peripheral pulses, regular rate, rhythm Gastrointestinal: soft, tenderness (mild diffuse) Neurologic/Psychiatric: alert, other (patient will answer yes and no to most questions, does not answer orientation questions and does not seem to follow questions appropriately) Appearance/Memory: No appropriate insight; disheveled Behavior/Eye Contact: avoids eye contact Progress/Results/Core Measures Results/Orders Lab Results Laboratory Tests Test 12/10/19 13:20 12/10/19 15:38 Range/Units White Blood Count 12.4 H 4.3-11.0 10^3/uL Red Blood Count 3.70 L 4.30-5.52 10^6/uL Hemoglobin 12.3 L 13.3-17.7 g/dL Hematocrit 35 L 40-54 % Mean Corpuscular Volume 93 80-99 fL Mean Corpuscular Hemoglobin 33 25-34 pg Mean Corpuscular Hemoglobin Concent 36 32-36 g/dL Red Cell Distribution Width 13.0 10.0-14.5 % Platelet Count 300 130-400 10^3/uL Mean Platelet Volume 10.2 9.0-12.2 fL Immature Granulocyte % (Auto) 0 % Neutrophils (%) (Auto) 61 42-75 % Lymphocytes (%) (Auto) 32 12-44 % Monocytes (%) (Auto) 4 0-12 % Eosinophils (%) (Auto) 2 0-10 % Basophils (%) (Auto) 1 0-10 % Neutrophils # (Auto) 7.6 1.8-7.8 10^3/uL Lymphocytes # (Auto) 4.0 1.0-4.0 10^3/uL Monocytes # (Auto) 0.5 0.0-1.0 10^3/uL Eosinophils # (Auto) 0.2 0.0-0.3 10^3/uL Basophils # (Auto) 0.1 0.0-0.1 10^3/uL Immature Granulocyte # (Auto) 0.1 0.0-0.1 10^3/uL Sodium Level 127 L 135-145 MMOL/L Potassium Level 3.2 L 3.6-5.0 MMOL/L Chloride Level 91 L 98-107 MMOL/L Carbon Dioxide Level 22 21-32 MMOL/L Anion Gap 14 5-14 MMOL/L Blood Urea Nitrogen 7 7-18 MG/DL Creatinine 0.72 0.60-1.30 MG/DL Estimat Glomerular Filtration Rate > 60 BUN/Creatinine Ratio 10 Glucose Level 92 70-105 MG/DL Calcium Level 8.3 L 8.5-10.1 MG/DL Corrected Calcium 8.4 L 8.5-10.1 MG/DL Total Bilirubin 0.4 0.1-1.0 MG/DL Aspartate Amino Transf (AST/SGOT) 20 5-34 U/L Alanine Aminotransferase (ALT/SGPT) 15 0-55 U/L Alkaline Phosphatase 62 40-136 U/L Total Protein 6.9 6.4-8.2 GM/DL Albumin 3.9 3.2-4.5 GM/DL Salicylates Level < 5.0 L 5.0-20.0 MG/DL Acetaminophen Level < 10 L 10-30 UG/ML Serum Alcohol 218 H <10 MG/DL Urine Color YELLOW Urine Clarity CLEAR Urine pH 6.0 5-9 Urine Specific [place] <=1.005 1.016-1.022 Urine Protein NEGATIVE NEGATIVE Urine Glucose (UA) NEGATIVE NEGATIVE Urine Ketones TRACE H NEGATIVE Urine Nitrite NEGATIVE NEGATIVE Urine Bilirubin NEGATIVE NEGATIVE Urine Urobilinogen 0.2 < = 1.0 MG/DL Urine Leukocyte Esterase NEGATIVE NEGATIVE Urine RBC (Auto) NEGATIVE NEGATIVE Urine RBC NONE /HPF Urine WBC NONE /HPF Urine Squamous Epithelial Cells NONE /HPF Urine Crystals NONE /LPF Urine Bacteria NEGATIVE /HPF Urine Casts NONE /LPF Urine Mucus NEGATIVE /LPF Urine Culture Indicated NO Urine Opiates Screen NEGATIVE NEGATIVE Urine Oxycodone Screen NEGATIVE NEGATIVE Urine Methadone Screen NEGATIVE NEGATIVE Urine Propoxyphene Screen NEGATIVE NEGATIVE Urine Barbiturates Screen NEGATIVE NEGATIVE Ur Tricyclic Antidepressants Screen NEGATIVE NEGATIVE Urine Phencyclidine Screen NEGATIVE NEGATIVE Urine Amphetamines Screen NEGATIVE NEGATIVE Urine Methamphetamines Screen NEGATIVE NEGATIVE Urine Benzodiazepines Screen NEGATIVE NEGATIVE Urine Cocaine Screen NEGATIVE NEGATIVE Urine Cannabinoids Screen NEGATIVE NEGATIVE My Orders Orders - LOPEZ,JO-ANN L DO Ua Culture If Indicated (12/10/19 13:09) Cbc With Automated Diff (12/10/19 13:09) Comprehensive Metabolic Panel (12/10/19 13:09) Alcohol (12/10/19 13:09) Drug Screen Stat (Urine) (12/10/19 13:09) Acetaminophen (12/10/19 13:09) Salicylate (12/10/19 13:09) Ed Iv/Invasive Line Start (12/10/19 13:09) Ed Iv/Invasive Line Start (12/10/19 13:09) Ns Iv 1000 Ml (Sodium Chloride 0.9%) (12/10/19 13:09) Ct Head Wo-R/O Stroke (12/10/19 13:09) Acute Abd Series (12/10/19 13:17) Famotidine Injection (Pepcid Injection) (12/10/19 14:06) Ct Angio Head/Neck (12/10/19 15:50) Iohexol Injection (Omnipaque 350 Mg/Ml 1 (12/10/19 16:00) Received Contrast (Hold Metformin- Contr (12/10/19 16:00) Ns (Ivpb) (Sodium Chloride 0.9% Ivpb Bag (12/10/19 16:00) Medications Given in ED Vital Signs/I&O 12/10/19 21:15 Temp 36.8 Pulse 97 Resp 15 B/P (MAP) 130/76 (97) Pulse Ox 95 O2 Delivery Room Air Progress Progress Note : Progress Note CT/MRI shows acute/subacute stroke. Called and discussed with neurology team. They would like a CTA. CTA was performed that showed stenosis/occlusion of the ICA bulb. After review, neurology team like patient transferred to their facility for further management. Patient was transferred in stable condition. Departure Impression Primary Impression: Ischemic stroke of frontal lobe Additional Impression: Ischemic left ICA stroke, in utero Disposition: 02 XFER SHT-TRM HOSP Condition: Stable Transfer Transfer Reason: Exceeds level of care Time Spoke to Accepting Phy: 18:00 Transfer Progress Notes Patient to be transferred to with accepting doctor Nayely. Patient was transferred in stable condition Transfer Facility: [facility] Method of Transfer: EMS Departure-Patient Inst. Referrals: NO,LOCAL PHYSICIAN (PCP/Family) Primary Care Physician JO-ANN LOPEZ DO Dec 10, 2019 13:09
--- NOTE | 2019-12-10 13:20 | NUR ---
Pt unable to provide history.
[2019-12-10 13:38] LABS: BASOPHILS # (AUTO) 0.1 10^3/uL (0.0-0.1); BASOPHILS % (AUTO) 1 % (0-10); EOSINOPHILS # (AUTO) 0.2 10^3/uL (0.0-0.3); EOSINOPHILS % (AUTO) 2 % (0-10); HEMATOCRIT 35 % (40-54); HEMOGLOBIN 12.3 g/dL (13.3-17.7); LYMPHOCYTES % (AUTO) 32 % (12-44); MEAN CORPUSCULAR HEMOGLOBIN 33 pg (25-34); MEAN CORPUSCULAR HGB CONC 36 g/dL (32-36); MEAN CORPUSCULAR VOLUME 93 fL (80-99); MEAN PLATELET VOLUME 10.2 fL (9.0-12.2); MONOCYTES # (AUTO) 0.5 10^3/uL (0.0-1.0); MONOCYTES % (AUTO) 4 % (0-12); NEUTROPHILS # (AUTO) 7.6 10^3/uL (1.8-7.8); NEUTROPHILS % (AUTO) 61 % (42-75); PLATELET COUNT 300 10^3/uL (130-400); WHITE BLOOD COUNT 12.4 10^3/uL (4.3-11.0)
[2019-12-10 13:47] LABS: ALBUMIN 3.9 GM/DL (3.2-4.5); CHLORIDE 91 MMOL/L (98-107); POTASSIUM 3.2 MMOL/L (3.6-5.0); SODIUM 127 MMOL/L (135-145)
[2019-12-10 13:48] LABS: CALCIUM 8.3 MG/DL (8.5-10.1)
[2019-12-10 13:49] LABS: GLUCOSE 92 MG/DL (70-105); TOTAL PROTEIN 6.9 GM/DL (6.4-8.2)
[2019-12-10 13:50] LABS: CARBON DIOXIDE 22 MMOL/L (21-32)
[2019-12-10 13:51] LABS: BILIRUBIN,TOTAL 0.4 MG/DL (0.1-1.0)
[2019-12-10 13:53] LABS: ALKALINE PHOSPHATASE 62 U/L (40-136); CREATININE SERUM 0.72 MG/DL (0.60-1.30); GFR ESTIMATED > 60
[2019-12-10 13:54] LABS: BUN/CREATININE RATIO 10
[2019-12-10 13:55] LABS: ACETAMINOPHEN < 10 UG/ML (10-30)
[2019-12-10 13:56] LABS: ALANINE AMINOTRANSFERASE 15 U/L (0-55); SALICYLATE < 5.0 MG/DL (5.0-20.0)
[2019-12-10] MEDS ORDERED: FAMOTIDINE 20MG/2ML IV (PEPCID) IV STA (14:06)
--- NOTE | 2019-12-10 14:06 | Diagnostic Imaging Report ---
INDICATION: Altered mental status. TECHNIQUE: Multiple contiguous axial images were obtained through the brain without the use of intravenous contrast. Auto Exposure Controls were utilized during the CT exam to meet ALARA standards for radiation dose reduction. COMPARISON: Comparison made to 09/25/2012. FINDINGS: There are mild diffuse atrophic changes. There are no extra-axial fluid collections or acute intracranial hemorrhage. There are low-density changes in the region of the left subinsular cortex as well as the posterior aspect of the left frontal lobe with loss of shelley-white differentiation. These findings are compatible with lihlj-ti-ykatwlat ischemic change. Otherwise, there are some scattered low-density areas in the deep white matter compatible with chronic ischemic change. The CSF density subdural collections seen on 09/25/2012 are no longer present. Calvarial windows were unremarkable. IMPRESSION: No acute intracranial hemorrhage. There are findings compatible with acute or subacute ischemic changes in the left subinsular cortex and left posterior frontal region. Recommend correlation with MRI. There are underlying chronic ischemic changes in the deep white matter. Dictated by: Dictated on workstation # [id number]
--- NOTE | 2019-12-10 14:14 | Diagnostic Imaging Report ---
INDICATION: Abdominal pain. Time of exam 1:49 PM Heart size normal. Lungs are clear. No free air is detected. Bowel gas pattern appears nonobstructed. No pathologic calcifications are seen. IMPRESSION: No acute feature detected. Dictated by: Dictated on workstation # [id number]
--- NOTE | 2019-12-10 14:25 | NUR ---
Pt gave permission to speak to Katie, pt's sister.
--- NOTE | 2019-12-10 15:12 | NUR ---
Pt taken warm blanket. Pt sleeping at this time.
--- NOTE | 2019-12-10 15:29 | Diagnostic Imaging Report ---
PROCEDURE: MR imaging of the brain without contrast. TECHNIQUE: Multiplanar, multisequence MR imaging of the brain was performed without contrast. INDICATION: Altered mental status and abnormal head CT. COMPARISON: Correlation made with head CT earlier the same day. There is a moderate size region of diffusion restriction involving the left frontal lobe corresponding with the area of low density noted on CT. Findings are consistent with either an acute or subacute infarct. Ventricular size is normal. There is no midline shift. No acute intra-axial or extra-axial hemorrhage is detected. Corpus callosum is unremarkable. Sella and parasellar structures are unremarkable. There is moderate periventricular and subcortical white matter changes consistent with chronic microvascular ischemia. IMPRESSION: 1. Findings consistent with acute/subacute nonhemorrhagic infarct of left frontal lobe corresponding with the area of low density noted on recent head CT. 2. No acute intracranial hemorrhage is detected. 3. Changes of chronic microvascular ischemia. Dictated by: Dictated on workstation # [id number]
[2019-12-10 15:45] LABS: BILIRUBIN,URINE NEGATIVE (NEGATIVE); CLARITY,URINE CLEAR; COLOR,URINE YELLOW; GLUCOSE, URINE (UA) NEGATIVE (NEGATIVE); KETONES,URINE TRACE (NEGATIVE); LEUKOCYTE ESTERASE ,URINE NEGATIVE (NEGATIVE); NITRITE,URINE NEGATIVE (NEGATIVE); PROTEIN,URINE NEGATIVE (NEGATIVE)
[2019-12-10 15:53] LABS: BACTERIA,URINE NEGATIVE /HPF
[2019-12-10 15:59] LABS: AMPHETAMINE SCREEN, URINE NEGATIVE (NEGATIVE); BARBITURATE SCREEN URINE NEGATIVE (NEGATIVE); BENZODIAZEPINES SCREEN URINE NEGATIVE (NEGATIVE); CANNABINOID SCREEN, URINE NEGATIVE (NEGATIVE); COCAINE SCREEN URINE NEGATIVE (NEGATIVE); METHADONE STAT NEGATIVE (NEGATIVE); METHAMPHETAMINE SCREEN URINE S NEGATIVE (NEGATIVE); OPIATE SCREEN URINE NEGATIVE (NEGATIVE); OXYCODONE STAT NEGATIVE (NEGATIVE); PROPOXYPHENE STAT NEGATIVE (NEGATIVE); TRICYCLIC ANTIDEPRESSANTS SCRE NEGATIVE (NEGATIVE)
[2019-12-10] MEDS ORDERED: HOLD METFORMIN - RECEIVED CONTRAST 20 ML VIAL IV SCH (16:00)
[2019-12-10] MEDS ORDERED: NS 100 ML (IVPB) BAG IV ONE (16:00)
[2019-12-10] MEDS ORDERED: IOHEXOL 350 MG/ML 100 ML (OMNIPAQUE 350) VIAL IV ONE (16:00)
--- NOTE | 2019-12-10 16:12 | NUR ---
Shawn chapman in [facility] - 12/10/19 at 1759 by [id number] senior care called for transportation.
--- NOTE | 2019-12-10 17:47 | NUR ---
Spoke with pt's sister, Katie, with update at this time.
--- NOTE | 2019-12-10 18:04 | Diagnostic Imaging Report ---
CLINICAL INDICATION: Patient was picked up at [facility] and was not making sense. Patient has left-sided ischemic change that was found on earlier CT. EXAMS: 1: Head CT without and with IV contrast. Auto Exposure Controls were utilized during the CT exam to meet ALARA standards for radiation dose reduction. 2: CT angiogram of the head and neck performed with 100 cc of Omnipaque 350 IV contrast. Sagittal and coronal MIP reformations were created for better visualization of vascular anatomy. COMPARISON: MRI of the brain performed without contrast dated 12/10/2019. Head CT without contrast dated 12/10/2019. FINDINGS: Head CT: There is subtle small area of transcortical white matter low attenuation involving the left frontal lobe, left insula regions. There is stable prominent perivascular space in the left basal ganglia region. Stable small chronic infarct involving the anterior aspect of the right internal capsule region. There is no brain herniation, midline shift, or hydrocephalus. There is no evidence of hemorrhagic transformation of the left frontal lobe infarct. Basal cisterns are unremarkable. The extracranial soft tissues, skull, and orbits are unremarkable. There is mild mucosal thickening involving the frontal sinus and minimal mucosal thickening involving left maxillary sinus and ethmoid sinus mucosal thickening. Mastoid air cells are clear. CT Angiogram: Three-vessel aortic arch is seen. The right brachiocephalic artery is patent. There is mild stenosis involving the proximal aspect of the left subclavian artery. Otherwise, the left subclavian artery is patent. The right common carotid artery, cervical right ICA, and right ECA are patent. There is dense atherosclerotic disease involving the distal left CCA and left ICA bulb region. There is moderate stenosis involving the distal left common carotid artery region due to atherosclerotic disease. There is mild narrowing of the origin of the left ECA. There is occlusion at the origin of the cervical left ICA bulb with contrast seen within the mid to distal portion of the bulb. It is possible that there may be very minimal contrast extending anteriorly. Otherwise, the cervical left ICA is patent. The bilateral petrous and cavernous carotid arteries and supraclinoid ICA are patent. The bilateral cervical vertebral arteries are patent. Dominant left vertebral artery is seen. The intradural bilateral vertebral arteries, basilar artery, bilateral superior cerebellar arteries, and bilateral marble mechanic helper are patent. 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 In the bilateral ACAs and their distal branches, there appears to be diminished contrast within one of the distal A2 ACAs which has normal-appearing contrast opacification on the coronal and sagittal reformatted images, likely due to its small size. There is a very subtle 2 mm vascular outpouching patching in the right M1 MCA genu region. The bilateral MCAs and their distal branches are patent. Dural venous sinuses are patent. The neck soft tissue structures are unremarkable. Visualized upper lung raphael show mild emphysematous lung disease. There is cervical spine degenerative disease. IMPRESSION: 1: Again seen small acute infarct involving the left frontal lobe left MCA distribution. There is no hemorrhagic transformation or abnormal IV contrast enhancement. 2: There is a short segment area of occlusion or near complete occlusion of the left cervical ICA bulb. There is contrast opacification seen distally. 3: There is otherwise no evidence of large vessel occlusion, or significant stenosis or vascular malformation. 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 5: There is a small vascular bulge versus early aneurysm involving the right M1 MCA genu region. This should be followed on subsequent imaging. Results of this report were discussed with Dr. Andrea Aguiar via the telephone on 12/10/2019 at 1707 hours. Dictated by: Dictated on workstation # [id number]
--- NOTE | 2019-12-10 18:39 | NUR ---
[facility] called at this time.
--- NOTE | 2019-12-10 20:36 | NUR ---
Spoke to shift captain at this time. Transportation should be here for pt soon.
[2019-12-10 21:15] VITALS: BP 130/76
== END 2019-12-10 21:28 | disposition short-term general hospital (02) ==
LOC: EDUNIT# 13:00 → ER 13:00
DX: I63.239 Cerebral infarction due to unspecified occlusion or stenosis of unspecified carotid artery (principal); I69.314 Frontal lobe and executive function deficit following cerebral infarction; I10 Essential (primary) hypertension; J44.9 Chronic obstructive pulmonary disease, unspecified; Z87.820 Personal history of traumatic brain injury; Z77.22 Contact with and (suspected) exposure to environmental tobacco smoke (acute) (chronic)
CPT/HCPCS: 36415; 70450; 70496; 70498; 70551; 74022; 80053; 80306; 80320; 80329; 81000; 85025

== ENCOUNTER 2020-01-28 16:18 | Observation (INO) | payer MEDICAID ==
[~2020-01-28] VITALS: Ht 175.3 cm; Wt 74.8 kg
--- NOTE | 2020-01-28 16:18 | NUR ---
Holly calls to give RN report while EMS is already on phone that they are arriving to ER. Per RN the patient is being sent for homicidal Ideation/threats against ppl and they fear for residents he could harm them. Describe the patient as a recent admit to in last month from [facility] after being transferred out of a hospital for evaluation of stroke like sx. Pt was essentially an alcoholic homeless man in [place] they state. Pt had a sister become DPOA over him and he will deny this. Pt wants out of LTC facility. Pt is diagnosed schizophrenic but now appears psychotic they state. Dr Toney Calvo, Clinical Psychologist sees him. "We have been working on placement to [facility] and now they are full." "We also tried for [facility] and they are full with wait list." "The Director of [facility] would like patient placed on a 72 hr hold somewhere."
--- NOTE | 2020-01-28 16:40 | ED General ---
General Chief Complaint: Psych/Social Disorder Stated Complaint: MENTAL HEALTH EVAL History of Present Illness Date Seen by Provider: Jan 28, 2020 Time Seen by Provider: 16:15 Initial Comments The patient is a 59-year-old male, homeless for a number of years in the [place], [place] area, with a history of alcohol and methamphetamine abuse and (reportedly) schizoaffective and bipolar disorder. Early last month the patient presented to the [place] emergency department for evaluation of altered mental status. In addition to alcohol intoxication, he was found to have had a subacute left frontal ischemic stroke. He was transferred to [facility] for further care. It sounds as though Mr. Neves was found to have carotid blockage and had what appears to have been a left carotid endarterectomy, although the patient is not quite sure. He was sent to the [facility] in [place] for postacute care, and has been there for a week or two. Mr. Neves presents for evaluation of verbally threatening behavior at the nursing facility. Unclear exactly how he was being verbally threatening and to whom. Eventually, the custodial staff called EMS and PD and patient was transported here for further evaluation. Upon initial evaluation here in the emergency department the patient is pleasantly and appropriately interactive, calm and cooperative and in absolutely no acute distress. He tells me that he was upset because he does not want to be at the custodial anymore because "it's not the right place for me." He states "I wanted to leave the custodial but they wouldn't let me." He is apparently his own guardian; paperwork sent with him and report from the nursing facility make reference to a sister who is a DPOA, but he is alert and oriented 4, not intoxicated, not seemingly psychotic, and it is not clear that there is any triggering condition that would activate his DPOA for decisionmaking purposes. Patient denies suicidal or homicidal ideation, is not paranoid or delusional, is linear and goal-directed in his thought process and speech and thought content is reasonable. He denies any medical complaints or concerns today and denies any use of drugs or alcohol recently. Allergies and Home Medications Allergies Coded Allergies: NKANo Known Allergies (Verified Allergy, Unknown, 04/30/05) Home Medications Albuterol Sulfate 1 Puff Puff, 2 PUFF IH Q4H PRN for WHEEZING 1 PUFF = 90 MCG Prescribed by: HONG PATEL on 11/29/19 1109 Metoprolol Tartrate 25 Mg Tablet, 25 MG PO BID, (Reported) Metoprolol Tartrate 25 Mg Tablet, 25 MG PO BID Prescribed by: HONG PATEL on 11/29/19 1109 Naproxen 500 Mg Tablet, 1 EACH PO BID, (Reported) Patient Home Medication List Home Medication List Reviewed: Yes Review of Systems Review of Systems Constitutional: see HPI All Other Systems Reviewed Negative Unless Noted: Yes (Negative excepted noted.) Past Lsowlwg-Lxwjvm-Spibet Hx Past Med/Social Hx: Reviewed Nursing Past Med/Soc Hx Patient Social History Alcohol Beverage of Choice: Beer, Vodka Drug of Choice: THC, HX OF IV meth Type Used: Cigarettes 2nd Hand Smoke Exposure: Yes Recent Foreign Travel: No Contact w/Someone Who Travel: No Recent Hopitalizations: Yes (IN 2019) Immunizations Up To Date Tetanus Booster (TDap): Unknown Seasonal Allergies Seasonal Allergies: No Past Medical History Surgeries: No Respiratory: Yes Pneumonia, Sleep Apnea, COPD Cardiac: Yes Hypertension Neurological: Yes (08/2012-ACUTE INTRAPARENCHYMAL BLEED, WITH OLD SUBDURAL BLEED-NO SURGERY) Traumatic Brain Injury Reproductive Disorders: No Genitourinary: No Gastrointestinal: Yes (ELEVATED LFT'S) Musculoskeletal: Yes Fractures Endocrine: No HEENT: Yes Eye Injury, Double Vision Loss of Vision: Bilateral Hearing Impairment: Denies Cancer: No Psychosocial: Yes (ALCOHOLISM; SUBSTANCE ABUSE/THC) Anxiety, Bipolar, Schizophrenia Integumentary: No Blood Disorders: No Adverse Reaction/Blood Tranf: No Family Medical History Reviewed Nursing Family Hx Patient reports no known family medical history. SOCIAL HISTORY: -PT HAS BEEN HOMELESS, AND A TRANSIENT, AND IN AND OUT OF GROUP HOME. HAS FAMILY IN THE AREA, BUT HAVE NOT ALLOWED HIM TO STAY WITH THEM DUE TO HIS PAST BEHAVIORS. Physical Exam Vital Signs Vital Signs - First Documented 01/28/20 16:18 Temp 36.7 Pulse 88 Resp 20 B/P (MAP) 154/78 (103) Pulse Ox 99 O2 Delivery Room Air Capillary Refill : Height, Weight, BMI Height: 5'11.00" Weight: 160lbs. oz. 72.379549xn; 25.00 BMI Method:Estimated General Appearance: No Apparent Distress Comments This is an older male appearing nontoxic and in no acute distress. Head is normocephalic and atraumatic. Neck is supple and nontender. There is stigmata of apparent recent neck surgery, well healed, to the left anterior neck . Oropharynx is moist. Lungs are clear to auscultation at all stations. There is normal S1 and S2 without rubs or gallops and capillary refill is appropriate, less than 2 seconds globally. Abdomen is soft, nontender and nondistended. Skin is warm and dry without cyanosis, clubbing or edema. Psychiatrically, the patient demonstrates appropriate mood and affect and is alert. Progress/Results/Core Measures Suspected Sepsis SIRS Temperature: Pulse: Respiratory Rate: Laboratory Tests 01/28/20 16:40: White Blood Count 13.1H Blood Pressure / Mean: Laboratory Tests 01/28/20 16:40: Creatinine 0.74, Platelet Count 331, Total Bilirubin 0.2 Results/Orders Lab Results Laboratory Tests Test 01/28/20 16:40 01/28/20 16:45 Range/Units White Blood Count 13.1 H 4.3-11.0 10^3/uL Red Blood Count 3.85 L 4.35-5.85 10^6/uL Hemoglobin 12.3 L 13.3-17.7 G/DL Hematocrit 36 L 40-54 % Mean Corpuscular Volume 93 80-99 FL Mean Corpuscular Hemoglobin 32 25-34 PG Mean Corpuscular Hemoglobin Concent 34 32-36 G/DL Red Cell Distribution Width 13.4 10.0-14.5 % Platelet Count 331 130-400 10^3/uL Mean Platelet Volume 10.3 7.4-10.4 FL Sodium Level 132 L 135-145 MMOL/L Potassium Level 4.0 3.6-5.0 MMOL/L Chloride Level 96 L 98-107 MMOL/L Carbon Dioxide Level 25 21-32 MMOL/L Anion Gap 11 5-14 MMOL/L Blood Urea Nitrogen 6 L 7-18 MG/DL Creatinine 0.74 0.60-1.30 MG/DL Estimat Glomerular Filtration Rate > 60 BUN/Creatinine Ratio 8 Glucose Level 100 70-105 MG/DL Calcium Level 9.3 8.5-10.1 MG/DL Corrected Calcium 8.9 8.5-10.1 MG/DL Total Bilirubin 0.2 0.1-1.0 MG/DL Aspartate Amino Transf (AST/SGOT) 16 5-34 U/L Alanine Aminotransferase (ALT/SGPT) 15 0-55 U/L Alkaline Phosphatase 57 40-136 U/L Total Protein 7.4 6.4-8.2 GM/DL Albumin 4.5 3.2-4.5 GM/DL Salicylates Level 0.4 L 5.0-20.0 MG/DL Acetaminophen Level < 10 L 10-30 UG/ML Serum Alcohol < 10 <10 MG/DL Urine Color YELLOW Urine Clarity CLEAR Urine pH 7.5 5-9 Urine Specific [place] 1.010 L 1.016-1.022 Urine Protein NEGATIVE NEGATIVE Urine Glucose (UA) NEGATIVE NEGATIVE Urine Ketones NEGATIVE NEGATIVE Urine Nitrite NEGATIVE NEGATIVE Urine Bilirubin NEGATIVE NEGATIVE Urine Urobilinogen 0.2 < = 1.0 MG/DL Urine Leukocyte Esterase NEGATIVE NEGATIVE Urine RBC (Auto) NEGATIVE NEGATIVE Urine RBC NONE /HPF Urine WBC RARE /HPF Urine Squamous Epithelial Cells NONE /HPF Urine Crystals NONE /LPF Urine Bacteria NEGATIVE /HPF Urine Casts NONE /LPF Urine Mucus NEGATIVE /LPF Urine Culture Indicated NO Urine Opiates Screen NEGATIVE NEGATIVE Urine Oxycodone Screen NEGATIVE NEGATIVE Urine Methadone Screen NEGATIVE NEGATIVE Urine Propoxyphene Screen NEGATIVE NEGATIVE Urine Barbiturates Screen NEGATIVE NEGATIVE Ur Tricyclic Antidepressants Screen NEGATIVE NEGATIVE Urine Phencyclidine Screen NEGATIVE NEGATIVE Urine Amphetamines Screen NEGATIVE NEGATIVE Urine Methamphetamines Screen NEGATIVE NEGATIVE Urine Benzodiazepines Screen NEGATIVE NEGATIVE Urine Cocaine Screen NEGATIVE NEGATIVE Urine Cannabinoids Screen NEGATIVE NEGATIVE My Orders Orders - SLOANE FERNANDEZ MD Cbc No Diff (01/28/20 16:27) Comprehensive Metabolic Panel (01/28/20 16:27) Acetaminophen (01/28/20 16:27) Salicylate (01/28/20 16:27) Alcohol (01/28/20 16:27) Drug Screen Stat (Urine) (01/28/20 16:27) Ua Culture If Indicated (01/28/20 17:02) Vital Signs/I&O 01/28/20 16:18 Temp 36.7 Pulse 88 Resp 20 B/P (MAP) 154/78 (103) Pulse Ox 99 O2 Delivery Room Air Capillary Refill : Progress Note : Time: 16:42 Progress Note Will check neuropsychiatric lab work as noted and will seek [facility] psychiatric assessment for disposition. 1722: Patient is resting comfortably in bed in absolutely no acute distress. He remains calm and cooperative. He continues to tell us that he simply wants to go back home to [place] where he is from. Labs are back and are unremarkable aside from very mild leukocytosis without signs or symptoms of infectious illness or other acute process necessitating further workup. Pending [facility] assessment at this time. 7: [facility] custom shop worker has completed evaluation of the patient and is recommending involuntary psychiatric placement. After speaking with family, the custom shop worker determined that the patient does have a remote history of violent behavior, which was apparently a contributing factor in the involuntary placement recommendation. There is no prospect for expeditious placement at this time and custom shop worker feels that placement is not especially likely over the weekend, though it will be sought. I discussed next steps with Jany Garcia ED nurse medication manager Emi. As this is an austere rural freestanding emergency department with minimal staffing and no security assistant on duty, she recommends that the patient be transferred by ambulance to [facility] for observation admission with a sitter to facilitate safe involuntary psychiatric placement. Case is discussed with Dr. Beard who graciously accepts the patient in transfer to [facility]. We will proceed with transfer at this time. Departure Impression Primary Impression: Argumentative behavior Disposition: 30 STILL A PATIENT Condition: Stable Departure-Patient Inst. Referrals: NO,LOCAL PHYSICIAN (PCP/Family) Primary Care Physician SLOANE FERNANDEZ MD Jan 28, 2020 16:40
[2020-01-28 16:53] LABS: HEMOGLOBIN 12.3 G/DL (13.3-17.7); WHITE BLOOD COUNT 13.1 10^3/uL (4.3-11.0)
[2020-01-28 16:54] LABS: MEAN PLATELET VOLUME 10.3 FL (7.4-10.4)
[2020-01-28 17:02] LABS: AMPHETAMINE SCREEN, URINE NEGATIVE (NEGATIVE); BARBITURATE SCREEN URINE NEGATIVE (NEGATIVE); BENZODIAZEPINES SCREEN URINE NEGATIVE (NEGATIVE); CANNABINOID SCREEN, URINE NEGATIVE (NEGATIVE); COCAINE SCREEN URINE NEGATIVE (NEGATIVE); METHADONE STAT NEGATIVE (NEGATIVE); METHAMPHETAMINE SCREEN URINE S NEGATIVE (NEGATIVE); OPIATE SCREEN URINE NEGATIVE (NEGATIVE); OXYCODONE STAT NEGATIVE (NEGATIVE); PROPOXYPHENE STAT NEGATIVE (NEGATIVE); TRICYCLIC ANTIDEPRESSANTS SCRE NEGATIVE (NEGATIVE)
[2020-01-28 17:10] LABS: ALANINE AMINOTRANSFERASE 15 U/L (0-55); ALBUMIN 4.5 GM/DL (3.2-4.5); ALKALINE PHOSPHATASE 57 U/L (40-136); BILIRUBIN,TOTAL 0.2 MG/DL (0.1-1.0); BUN/CREATININE RATIO 8; CALCIUM 9.3 MG/DL (8.5-10.1); CARBON DIOXIDE 25 MMOL/L (21-32); CHLORIDE 96 MMOL/L (98-107); CREATININE SERUM 0.74 MG/DL (0.60-1.30); GFR ESTIMATED > 60; GLUCOSE 100 MG/DL (70-105); SALICYLATE 0.4 MG/DL (5.0-20.0); SODIUM 132 MMOL/L (135-145); TOTAL PROTEIN 7.4 GM/DL (6.4-8.2)
[2020-01-28 17:11] LABS: ACETAMINOPHEN < 10 UG/ML (10-30)
--- NOTE | 2020-01-28 17:12 | NUR ---
Call to [facility] to request screen. Spoke with Maritza to give overview of patient's ER visit. Pt sent from [facility] with request he be screened and placed inpatient pysch for homicidal threats. PD accompanied into ER with EMS and state they all have had no issues and the PD does not have him in protective custody or charges against him. EMS and PPD depart rather uneventful with pt willingly entering ED Rm 4 cooperating. Pt does not understand that [facility] has requested he "get a 72 hr hold anywhere". No staff, PD, or EMS have a homicidal statement from patient. Pt denies SI and HI thoughts. Pt reports he was misunderstood. EMS stated patient said "All I wanted to do is smoke a cigarette and they didn't want me to go outside."
[2020-01-28 17:22] LABS: BACTERIA,URINE NEGATIVE /HPF; BILIRUBIN,URINE NEGATIVE (NEGATIVE); CLARITY,URINE CLEAR; COLOR,URINE YELLOW; GLUCOSE, URINE (UA) NEGATIVE (NEGATIVE); KETONES,URINE NEGATIVE (NEGATIVE); LEUKOCYTE ESTERASE ,URINE NEGATIVE (NEGATIVE); NITRITE,URINE NEGATIVE (NEGATIVE); PH,URINE 7.5 (5-9); PROTEIN,URINE NEGATIVE (NEGATIVE); WBC,URINE RARE /HPF
--- NOTE | 2020-01-28 17:35 | NUR ---
Ending call with [facility] whom is provided a phone number with Holly Garcia to get nurse report or documented facts/statements. Determination awareness that [employer] has sent a DPOA form made 12/23/2019 after this RN called to ask if this was on file as they continue to report he is not his own guardian. The patient is alert and oriented in ER, cooperative, and no threatening statements. The [facility] is going to call Holly and speak with screener after that and then proceed as a Crisis Intervention Screen [facility] screen with Tracking number [id number].
--- NOTE | 2020-01-28 18:13 | NUR ---
Manasa with [facility] called, has spoke with [employer] and now needs Facesheet, Labs, med List, and provider notes sent to them at [phone] and screener should be available shortly.
--- NOTE | 2020-01-28 18:25 | NUR ---
Faxed requested medical screening chart.
--- NOTE | 2020-01-28 18:45 | NUR ---
Refaxing medical screening records as failure noted.
--- NOTE | 2020-01-28 19:10 | NUR ---
Report to Shraddha OLSEN.
--- NOTE | 2020-01-28 19:11 | NUR ---
Fax has been successful.
--- NOTE | 2020-01-28 19:42 | NUR ---
Patient requested light to be turned down, offered nutritional food and drink, patient stated not hungry.
--- NOTE | 2020-01-28 20:24 | NUR ---
Video screening started at 1956 completed at 2019. Patient ambulatory to restroom and back to room.
--- NOTE | 2020-01-28 21:17 | NUR ---
Earl from medical screening called back and stated the patient needs Inter[facility] placement in a senior level 2 unit. Reports that he has had intent to do harm and acted on it in the past per his sister as well as comments to staff at [facility].
[2020-01-28] MEDS ORDERED: CATHETER FLUSH 10 ML SYR IV PRN (23:45)
[2020-01-28] MEDS ORDERED: ACETAMINOPHEN 325 MG TABLET PO PRN (23:45)
[2020-01-28 23:47] VITALS: BP 142/68
--- NOTE | 2020-01-29 | NUR ---
GOYO ZACARIAS admitted to room 407-1, with an admitting diagnosis of involuntary psych hold , on 01/28/20 from [facility] ED via [facility] ems, accompanied by [facility] ems & policeman.GOYO ZACARIAS introduced to surroundings, call light, bed controls, phone, TV, temperature control, lights, meal times, smoking policy, visitor policy, side rail policy, bathrooms and showers. Patient Rights given to patient in the handbook. GOYO ZACARIAS verbalizes understanding that [facility] is not responsible for the loss or damage to any personal effects or valuables that are kept in the patients possession during their hospitalization.
--- NOTE | 2020-01-29 | NUR ---
-DURING THE ADMISSION PROCESS THIS PT STATED "WE ARE DONE. I'M NOT ANSWERING ANYMORE OF YOUR QUESTIONS YOU AREN'T LOOKING AT ME ANYMORE EITHER. I NEED TO TALK TO THE SEARCH ANALYST IN THE MORNING. I CAN'T BELIEVE THAT DOCTOR SENT ME HERE." -THIS RN WAS NOT ABLE TO DO A FULL SKIN EXAM ON THE PT AND WAS NOT ABLE TO GET THIS PT TO ANSWER ALL THE ADMISSION QUESTIONS; THIS RN HAD TO RECALL SOME OF HIS ADMISSION.
[2020-01-29 04:00] VITALS: BP 108/54
[2020-01-29 05:26] LABS: BASOPHILS # (AUTO) 0.1 10^3/uL (0.0-0.1); BASOPHILS % (AUTO) 1 % (0-10); EOSINOPHILS # (AUTO) 0.9 10^3/uL (0.0-0.3); EOSINOPHILS % (AUTO) 12 % (0-10); HEMATOCRIT 34 % (40-54); HEMOGLOBIN 11.5 g/dL (13.3-17.7); LYMPHOCYTES # (AUTO) 2.8 10^3/uL (1.0-4.0); LYMPHOCYTES % (AUTO) 37 % (12-44); MEAN CORPUSCULAR HEMOGLOBIN 32 pg (25-34); MEAN CORPUSCULAR HGB CONC 34 g/dL (32-36); MEAN CORPUSCULAR VOLUME 95 fL (80-99); MEAN PLATELET VOLUME 10.7 fL (9.0-12.2); MONOCYTES # (AUTO) 0.8 10^3/uL (0.0-1.0); MONOCYTES % (AUTO) 10 % (0-12); NEUTROPHILS # (AUTO) 3.1 10^3/uL (1.8-7.8); NEUTROPHILS % (AUTO) 40 % (42-75); PLATELET COUNT 323 10^3/uL (130-400); WHITE BLOOD COUNT 7.7 10^3/uL (4.3-11.0)
[2020-01-29 05:35] LABS: ALBUMIN 3.8 GM/DL (3.2-4.5)
[2020-01-29 05:36] LABS: CHLORIDE 102 MMOL/L (98-107); POTASSIUM 3.7 MMOL/L (3.6-5.0); SODIUM 137 MMOL/L (135-145)
[2020-01-29 05:37] LABS: CALCIUM 9.1 MG/DL (8.5-10.1)
[2020-01-29 05:38] LABS: GLUCOSE 83 MG/DL (70-105); TOTAL PROTEIN 6.5 GM/DL (6.4-8.2)
[2020-01-29 05:39] LABS: CARBON DIOXIDE 24 MMOL/L (21-32)
[2020-01-29 05:40] LABS: BILIRUBIN,TOTAL 0.4 MG/DL (0.1-1.0)
[2020-01-29 05:42] LABS: ALKALINE PHOSPHATASE 40 U/L (40-136); CREATININE SERUM 0.79 MG/DL (0.60-1.30); GFR ESTIMATED > 60
[2020-01-29 05:43] LABS: BUN/CREATININE RATIO 8
[2020-01-29 05:45] LABS: ALANINE AMINOTRANSFERASE 12 U/L (0-55)
[2020-01-29] MEDS: CATHETER FLUSH 10 ML SYR IV SCH ×3 (06:18→19:37)
[2020-01-29 06:21] LABS: BAND NEUTROPHILS 2 %; LYMPHOCYTES % (MANUAL) 34 %; NEUTROPHILS % (MANUAL) 42 %
[2020-01-29 06:22] LABS: ATYPICAL LYMPHOCYTES 5 %; BASOPHILS % (MANUAL) 0 %; EOSINOPHILS % (MANUAL) 12 %; MONOCYTES % (MANUAL) 5 %; TOXIC GRANULATION/VACUOLAZATIO 1+
--- NOTE | 2020-01-29 07:16 | NUR ---
0030-THIS RN ATTEMPTED TO START IV ON PT-PT REFUSED. 0400-THIS RN ATTEMPTED TO START IV ON PT -PT REFUSED. THIS RN WAS ADVISED BY THIS PT TO "FUCK OFF AND NEXT TIME BRING AN STERILE SUPERVISOR." 0620-THIS RN NOTIFIED DR. GARCIA THAT PT REFUSED IV ATTEMPTS & THAT DVT NEEDS ADDRESSED. NO NEW ORDERS
--- NOTE | 2020-01-29 12:39 | History & Physical-Hospitalist ---
History of Present Illness HPI/Chief Complaint Jessie Neves is a 59-year-old male with past medical history of hypertension, stroke, carotid stenosis status post carotid endarterectomy, who presented with agitation and aggressive behaviors. He had reportedly been at [facility] in [place] and was being aggressive and threatening with staff. He was taken to the emergency room where he was evaluated and deemed to require inpatient psychiatry. He was placed on involuntary hold and transferred to [facility] while awaiting placement. Upon my examination, he is unsure why the staff of [facility] thought is being aggressive. He denies making any threats. He says that he just wanted to leave. He doesn't want to be at the nursing facility anymore. Source: patient, RN/MD Exam Limitations: no limitations Date Seen 01/29/20 Time Seen by a Provider: 09:30 Attending Physician Norma Garcia MD PCP No,Local Physician Referring Physician Date of Admission Jan 28, 2020 at 21:40 Home Medications & Allergies Home Medications Reviewed patient Home Medication Reconciliation performed by pharmacy medication reconciliations lead quality technician and/or nursing. Patients Allergies have been reviewed. Allergies Allergies Coded Allergies NKANo Known Allergies (Verified Allergy, Unknown, 04/30/05) Past Sxiepun-Mofsaj-Eqptso Hx Past Med/Social Hx: Reviewed Nursing Past Med/Soc Hx Patient Social History Alcohol Use: Past History Alcohol Beverage of Choice: Beer, Vodka Recreational Drug Use: Yes Drug of Choice: THC, HX OF IV meth Type Used: Cigarettes 2nd Hand Smoke Exposure: Yes Recent Foreign Travel: No Contact w/other who traveled: No Recent Hopitalizations: No Recent Infectious Disease Expo: No Immunizations Up To Date Tetanus Booster (TDap): Unknown Seasonal Allergies Seasonal Allergies: No Past Medical History Cardiac: Hypertension Neurological: Traumatic Brain Injury Reproductive: No Musculoskeletal: Fractures HEENT: Eye Injury, Double Vision Loss of Vision: Bilateral Hearing Impairment: Denies Psychosocial: Anxiety, Bipolar, Schizophrenia History of Blood Disorders: No Adverse Reaction to Blood Pierson: No Family History Reviewed Nursing Family Hx Patient reports no known family medical history. SOCIAL HISTORY: -PT HAS BEEN HOMELESS, AND A TRANSIENT, AND IN AND OUT OF [facility]. HAS FAMILY IN THE AREA, BUT HAVE NOT ALLOWED HIM TO STAY WITH THEM DUE TO HIS PAST BEHAVIORS. Review of Systems Constitutional: no symptoms reported EENTM: no symptoms reported Respiratory: no symptoms reported Cardiovascular: no symptoms reported Gastrointestinal: no symptoms reported Genitourinary: no symptoms reported Musculoskeletal: no symptoms reported Skin: no symptoms reported Psychiatric/Neurological: No Symptoms Reported Physical Exam Physical Exam Vital Signs Vital Signs - First Documented 01/28/20 16:18 Temp 36.7 Pulse 88 Resp 20 B/P (MAP) 154/78 (103) Pulse Ox 99 O2 Delivery Room Air Capillary Refill : Less Than 3 Seconds Height, Weight, BMI Height: 5'11.00" Weight: 160lbs. oz. 72.069924qx; 24.34 BMI Method:Estimated General Appearance: No Apparent Distress, WD/WN Respiratory: No Respiratory Distress Gastrointestinal: No Distended Extremity: Normal Inspection, No Pedal Edema Neurologic/Psychiatric: Alert, Oriented x3 (disoriented to president, oriented to person place and date) Skin: Normal Color Results Results/Procedures Labs Laboratory Tests 01/28/20 16:40 01/29/20 04:50 01/29/20 04:58 Patient resulted labs reviewed. Assessment/Plan Admission Diagnosis involuntary commitment Admission Status: Observation Assessment and Plan Involuntary commitment Agitation Screened for inpatient psychiatric admission and deemed to require involuntary placement Awaiting placement Not requiring any medications at this time for agitation Diagnosis/Problems Diagnosis/Problems (1) Involuntary commitment Status: Acute (2) Agitation Status: Acute Clinical Quality Measures DVT/VTE Risk/Contraindication: Risk Factor Score Per Nursin RFS Level Per Nursing on Admit: 2=Moderate NORMA GARCIA MD Jan 29, 2020 12:39
--- NOTE | 2020-01-29 13:00 | NUR ---
patient threatened to leave hospital after eating his lunch , this nurse informed patient if he does leave I am obligated to call police d/t to reason his admitted to hospital, this nurse did call the police and have him in room while i explained this so patient would understand consequences of leaving AMA
[2020-01-29 15:49] VITALS: BP 135/75
--- NOTE | 2020-01-29 17:00 | NUR ---
today spoke with [facility] stated patient was screened and they were waiting for covid test to be done to send referrals to inpatient psych hospitals - covid orders received done and faxed negative results to [facility] person superintendent sanitation handling his case, later this afternoon received a call from [facility] stating they will have a bed open on Friday this nurse informed the [facility] ([phone])
[2020-01-30] VITALS: BP 130/75
[2020-01-30] MEDS: CATHETER FLUSH 10 ML SYR IV SCH ×3 (05:50→20:06)
[2020-01-30 08:00] VITALS: BP 138/80
--- NOTE | 2020-01-30 15:36 | Progress Note - Hospitalist ---
Subjective HPI/CC On Admission Date Seen by Provider: Jan 30, 2020 Time Seen by Provider: 09:30 Jessie Neves is a 59-year-old male with past medical history of hypertension, stroke, carotid stenosis status post carotid endarterectomy, who presented with agitation and aggressive behaviors. He had reportedly been at [facility] in [place] and was being aggressive and threatening with staff. He was taken to the emergency room where he was evaluated and deemed to require inpatient psychiatry. He was placed on involuntary hold and transferred to [place] while awaiting placement. Upon my examination, he is unsure why the staff of [facility] thought is being aggressive. He denies making any threats. He says that he just wanted to leave. He doesn't want to be at the nursing facility anymore. Subjective/Events-last exam He has no complaints or concerns. He is sitting in his bedside chair. Objective Exam Vital Signs Vital Signs Date Time Temp Pulse Resp B/P (MAP) Pulse Ox O2 Delivery O2 Flow Rate FiO2 01/30/20 08:00 36.2 110 18 138/80 (99) 94 Room Air Capillary Refill : Less Than 3 Seconds General Appearance: No Apparent Distress, WD/WN Respiratory: Normal Breath Sounds, No Respiratory Distress Cardiovascular: Regular Rate, Rhythm, No Edema Gastrointestinal: Normal Bowel Sounds, Soft Extremity: Normal Inspection, No Pedal Edema Neurologic/Psychiatric: Alert, No Motor/Sensory Deficits Skin: Normal Color, Warm/Dry Results/Procedures Lab Patient resulted labs reviewed. Assessment/Plan Assessment and Plan Assess & Plan/Chief Complaint Involuntary commitment Agitation Screened for inpatient psychiatric admission and deemed to require involuntary placement Awaiting placement Not requiring any medications at this time for agitation Diagnosis/Problems Diagnosis/Problems (1) Involuntary commitment Status: Acute (2) Agitation Status: Acute Clinical Quality Measures DVT/VTE Risk/Contraindication: Risk Factor Score Per Nursin RFS Level Per Nursing on Admit: 2=Moderate ZEV GARCIA MD Jan 30, 2020 15:36
[2020-01-30 16:02] VITALS: BP 120/56
--- NOTE | 2020-01-30 18:11 | NUR ---
patient today request staff to help him with phone in room to call his family ,and staff help patient with phone - later one of the nurses brought to my attention that patient had called police stating he was held here against his will and they were on their way, police came visited with patient, this nurse explained situation to the police with patient present again patient was reminded his consequences of leaving AMA
[2020-01-30 23:26] VITALS: BP 139/69
[2020-01-31] MEDS: CATHETER FLUSH 10 ML SYR IV SCH (04:23)
[2020-01-31 08:00] VITALS: BP 145/78
--- NOTE | 2020-01-31 08:27 | Progress Note - Hospitalist ---
Subjective HPI/CC On Admission Date Seen by Provider: Jan 31, 2020 Time Seen by Provider: 08:22 Jessie Neves is a 59-year-old male with past medical history of hypertension, stroke, carotid stenosis status post carotid endarterectomy, who presented with agitation and aggressive behaviors. He had reportedly been at [facility] in [place] and was being aggressive and threatening with staff. He was taken to the emergency room where he was evaluated and deemed to require inpatient psychiatry. He was placed on involuntary hold and transferred to [place] while awaiting placement. Upon my examination, he is unsure why the staff of [facility] thought is being aggressive. He denies making any threats. He says that he just wanted to leave. He doesn't want to be at the nursing facility anymore. Subjective/Events-last exam Pt standing up at bedside and helping plate mill hand with emptying trash bags when I entered room. He denies any physical complaints but does request a phone so that he can call an criminal attorney to figure out if there are charges against him and what his rights are. We discussed what brought him to the hospital and he states this was all a misunderstanding. He recalls all the events that led him here and He reports he was telling someone about how he had surgery on his jugular and they misconstrued this to mean that he wanted to cut his jugular. He adamantly denies any SI or HI. I reviewed notes and apparently a mental health screener was contacted and deemed he needed level 2 placement. I am unsure of the circumstances that lead to this determination. Informed patient that I would work with social services director to find the safest plan for him. He states he would be willing to go back to [place] but does not want to go "to [facility]." I offered to call his sister who is listed on a the board as his DPOA but he declined this and stated that he did not want his sister involved because "she had me sign everything when I was confused from surgery." Objective Exam Vital Signs Vital Signs Date Time Temp Pulse Resp B/P (MAP) Pulse Ox O2 Delivery O2 Flow Rate FiO2 01/31/20 09:00 95 Room Air 01/31/20 08:00 83 18 145/78 (100) 01/30/20 23:26 36.5 Capillary Refill : Less Than 3 Seconds General Appearance: No Apparent Distress, WD/WN Respiratory: No Accessory Muscle Use Neurologic/Psychiatric: Alert, Oriented x3, Normal Mood/Affect Results/Procedures Lab Patient resulted labs reviewed. Assessment/Plan Assessment and Plan Assess & Plan/Chief Complaint Admission for Involuntary commitment Agitation Screened for inpatient psychiatric admission and deemed to require involuntary placement per our notes- will attempt to contact screener who determined this and rescreen if able Discussed with social services director, appreciate their assistance Awaiting placement Not requiring any medications at this time for agitation COVID negative Clinical Quality Measures DVT/VTE Risk/Contraindication: Risk Factor Score Per Nursin RFS Level Per Nursing on Admit: 2=Moderate JOHAN AUSTIN MD Jan 31, 2020 08:27
[2020-01-31] MEDS ORDERED: DOCU100T2 PO (08:47)
[2020-01-31] MEDS ORDERED: ATOR40TA70 PO (08:47)
[2020-01-31] MEDS ORDERED: DIVA125C10 PO (08:47)
[2020-01-31] MEDS ORDERED: TRAM50TA3 PO (08:47)
[2020-01-31] MEDS ORDERED: NICO-588 TD (08:47)
[2020-01-31] MEDS ORDERED: ACET-2267 PO (08:47)
[2020-01-31] MEDS ORDERED: ASPI325T32 PO (08:47)
[2020-01-31] MEDS ORDERED: ALBU18HF2 INH (08:47)
[2020-01-31] MEDS ORDERED: TRZ50T PO (08:47)
--- NOTE | 2020-01-31 08:48 | NUR ---
MED REC WAS ENTERED USING THE TRANSFER/DISCHARGE REPORT FROM [facility] EARLINE
--- NOTE | 2020-01-31 10:14 | NUR ---
CM/SS: Follow up phone calls to determine next steps related to pt being able to discharge from hospital Plan: Undetermined at this time Summary: Pt is from [facility] and will likely return there - however he has been screened for a psychiatric placement. Call to [facility] - they reported the incidents that precipitated pt to be admitted to the hospital. They report pt has been threatening to staff in the facility. Call to Arnoldo Owen [facility] - he is able to give me the number to the [facility] in [place] that screened pt. [phone]. Telephone Call to [phone] Dawson - reports that pt needs inpatient - [facility]. A referral has been made to [facility]. They will have a bed on tomorrow. Telephone Call to Angeline [facility] - [phone] - she request information to review pt for possible placement. Information is sent via scan/email.
--- NOTE | 2020-01-31 11:50 | NUR ---
CM/SS: [facility] ([facility]) wants pt to be evaluated at a psychiatric facility prior to pt returning to the facility.
--- NOTE | 2020-01-31 11:52 | NUR ---
CM/SS: [facility] has DECLINED pt for placement. Angeline notified this worker via email of the decision.
--- NOTE | 2020-01-31 11:53 | NUR ---
CM/SS: [facility] discussed [facility]. He recommended calling the [facility] and request a copy of the screen. Arnoldo also made aware that pt is wanting to leave the hospital and go back to [place]. Telephone call to [phone] Geovanny Salas - requested that a copy of the screen be faxed to [phone]. Maritza reports they are also looking for placement - she is informed that Eduarda has declined pt at this time. She has a list of others that she is following up with at this time. She will keep in touch with this worker as to the status of locating a placement.
--- NOTE | 2020-01-31 12:05 | NUR ---
1156 PATIENT LEFT THE FLOOR. PRETTY PEREZ GOT ON THE ELEVATOR WITH HIM. PATIENT REFUSED TO COME BACK. 1157 PRETTY PEREZ CALLED THE POLICE TO NOTIFY THEM THAT PATIENT HAS LEFT. NOREEN INDUSTRIAL PAINTER NOTIFIED. DR AUSTIN NOTIFIED BY PRETTY PEREZ. Addendum: 01/31/20 at 1217 by JORGITO SAVAGE RN PATIENT REFUSED TO SIGN C4MA PAPERWORK
--- NOTE | 2020-01-31 12:05 | NUR ---
CM/UMER: Was notified by PRETTY Eason, that pt left the facility AMA - law enforcement to be notified.
--- NOTE | 2020-01-31 12:25 | NUR ---
CM/SS: PATIENT HAS A HX OF WORKING WITH [facility] - AND HE IS KN[facility] TO [facility]. CONTACT MADE WITH JT RENNER, they are talking with pt at the [facility]. They are advised on the current status of the pt. Awaiting mental health placement. They have determined that pt has denied being suicidal or homicidal at this time. They are unable to detain pt at this time. Pt will be released on his own. Call from [facility] - Arnoldo Staley - he was also contacted by Jt RENNER - he reports that they have talked with pt as to his mental status. He is denying being suicidal and homicidal and they are unable to detain pt. Telephone call to [facility] Geovanny Salas - [phone] - notifying her that pt has left the hospital AMA. She will no longer be looking for placement for pt at this time. Telephone call to [facility] -notifying them that pt left AMA. Voice mail left with Luz - penology professor.
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
--- NOTE | 2020-01-31 15:06 | NUR ---
CM/SS: Telephone call from Misty Rojo - DPOA - [phone] - checking on the status of the pt. She is frustrated that pt left the hospital and he did not go to a mental health facility. She is given information as to the events of the day and is frustrated that pt is not at a psychiatric facility. She is reminded that pt did refused to stay at the hospital. Law enforcement was notified and attempted to get pt back to the facility. Law enforcement notified mental health and at this time pt is denying being suicidal or homicidal. She is given the number to law enforcement [phone] to follow up. She wants pt to be in a facility for psychiatric issues. Again, she is reminded to follow up with law enforcement. Dr. Aguero is notified of the above information.
== END 2020-01-31 11:56 | disposition left against medical advice (07) ==
LOC: EDUNIT# 16:25 → ER FS 16:26 → 4TH 21:40
PROVIDERS: ADMIT Internal Medicine; ATTEND Internal Medicine
DX: R45.1 Restlessness and agitation (principal); R25.9 Unspecified abnormal involuntary movements; J44.9 Chronic obstructive pulmonary disease, unspecified; J18.9 Pneumonia, unspecified organism; I10 Essential (primary) hypertension; G47.30 Sleep apnea, unspecified; F41.9 Anxiety disorder, unspecified; F20.9 Schizophrenia, unspecified; F17.210 Nicotine dependence, cigarettes, uncomplicated; Z79.82 Long term (current) use of aspirin; Z79.899 Other long term (current) drug therapy; Z79.51 Long term (current) use of inhaled steroids
CPT/HCPCS: 36415; 80053; 80306; 80320; 80329; 81000; 85007; 85027; 87635; 99284; G0378

== ENCOUNTER 2020-02-03 10:48 | Emergency (ER) | payer MEDICAID ==
[~2020-02-03] VITALS: Ht 175 cm; Wt 70.0 kg
[~2020-02-03 10:48] MED LIST changes: +ACET-2267 PO; +ALBU18HF2 INH; +ASPI325T32 PO; +ATOR40TA70 PO; +DIVA125C10 PO; +DOCU100T2 PO; +NICO-685 TD; +TRAM50TA3 PO; +TRZ50T PO
[2020-02-03] MEDS ORDERED: OLANZapine 5 MG ODT (ZyPREXA ZYDIS) PO ONE (11:45)
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
[2020-02-03 11:51] LABS: BASOPHILS # (AUTO) 0.1 10^3/uL (0.0-0.1); BASOPHILS % (AUTO) 1 % (0-10); EOSINOPHILS # (AUTO) 0.4 10^3/uL (0.0-0.3); EOSINOPHILS % (AUTO) 3 % (0-10); HEMATOCRIT 36 % (40-54); HEMOGLOBIN 12.3 g/dL (13.3-17.7); LYMPHOCYTES % (AUTO) 30 % (12-44); MEAN CORPUSCULAR HEMOGLOBIN 32 pg (25-34); MEAN CORPUSCULAR HGB CONC 35 g/dL (32-36); MEAN CORPUSCULAR VOLUME 93 fL (80-99); MONOCYTES # (AUTO) 0.8 10^3/uL (0.0-1.0); MONOCYTES % (AUTO) 6 % (0-12); NEUTROPHILS # (AUTO) 8.2 10^3/uL (1.8-7.8); NEUTROPHILS % (AUTO) 60 % (42-75); PLATELET COUNT 312 10^3/uL (130-400); WHITE BLOOD COUNT 13.7 10^3/uL (4.3-11.0)
[2020-02-03 11:52] LABS: BILIRUBIN,URINE NEGATIVE (NEGATIVE); CLARITY,URINE CLEAR; COLOR,URINE YELLOW; GLUCOSE, URINE (UA) NEGATIVE (NEGATIVE); KETONES,URINE NEGATIVE (NEGATIVE); LEUKOCYTE ESTERASE ,URINE NEGATIVE (NEGATIVE); NITRITE,URINE NEGATIVE (NEGATIVE); PROTEIN,URINE NEGATIVE (NEGATIVE)
[2020-02-03 11:56] LABS: ALBUMIN 4.4 GM/DL (3.2-4.5); CHLORIDE 100 MMOL/L (98-107); INR 0.9 (0.8-1.4); POTASSIUM 3.8 MMOL/L (3.6-5.0); SODIUM 136 MMOL/L (135-145)
[2020-02-03 11:57] LABS: CALCIUM 8.4 MG/DL (8.5-10.1)
[2020-02-03 11:59] LABS: GLUCOSE 83 MG/DL (70-105); TOTAL PROTEIN 7.7 GM/DL (6.4-8.2)
[2020-02-03 11:59] LABS: BACTERIA,URINE NEGATIVE /HPF
[2020-02-03 12:00] LABS: BILIRUBIN,TOTAL 0.2 MG/DL (0.1-1.0); CARBON DIOXIDE 24 MMOL/L (21-32)
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
[2020-02-03 12:02] LABS: ALKALINE PHOSPHATASE 54 U/L (40-136); CREATININE SERUM 0.82 MG/DL (0.60-1.30); GFR ESTIMATED > 60
[2020-02-03 12:04] LABS: BUN/CREATININE RATIO 10
[2020-02-03 12:05] LABS: SALICYLATE < 5.0 MG/DL (5.0-20.0)
[2020-02-03 12:06] LABS: ALANINE AMINOTRANSFERASE 22 U/L (0-55)
[2020-02-03 12:11] LABS: ACETAMINOPHEN < 10 UG/ML (10-30)
[2020-02-03 12:12] LABS: AMPHETAMINE SCREEN, URINE NEGATIVE (NEGATIVE); BARBITURATE SCREEN URINE NEGATIVE (NEGATIVE); BENZODIAZEPINES SCREEN URINE NEGATIVE (NEGATIVE); CANNABINOID SCREEN, URINE NEGATIVE (NEGATIVE); COCAINE SCREEN URINE NEGATIVE (NEGATIVE); METHADONE STAT NEGATIVE (NEGATIVE); METHAMPHETAMINE SCREEN URINE S NEGATIVE (NEGATIVE); OPIATE SCREEN URINE NEGATIVE (NEGATIVE); OXYCODONE STAT NEGATIVE (NEGATIVE); PROPOXYPHENE STAT NEGATIVE (NEGATIVE); TRICYCLIC ANTIDEPRESSANTS SCRE NEGATIVE (NEGATIVE)
--- NOTE | 2020-02-03 12:27 | Diagnostic Imaging Report ---
HISTORY: Suicidal ideation. TECHNIQUE: Frontal view of the chest. COMPARISON: 12/10/2019 FINDINGS: Lung volumes are normal. There is mildly increased opacity at the right lung base. There is no pleural effusion or pneumothorax. The cardiac silhouette is normal in size. IMPRESSION: 1. Mildly increased opacity at the right lung base, may represent atelectasis or infiltrate. Dictated by: Dictated on workstation # [id number]
--- NOTE | 2020-02-03 12:28 | NUR ---
Patient states he does not wish to stay at the hospital for further evaluation. Patient signed out AMA.
--- NOTE | 2020-02-03 12:31 | Diagnostic Imaging Report ---
PROCEDURE: CT head without contrast. TECHNIQUE: Multiple contiguous axial images were obtained through the brain without the use of intravenous contrast. Auto Exposure Controls were utilized during the CT exam to meet ALARA standards for radiation dose reduction. DATE: February 03, 2020. COMPARISON: CT angiography head and neck December 10, 2019. MRI brain December 10, 2019. CT head without contrast December 10, 2019. INDICATION: 59-year-old male, altered mental status. FINDINGS: There is an area of CSF-like attenuation in the left subcortical white matter of the frontal lobe consistent with sequela of prior infarct. There is no hydrocephalus. There is no pronounced cerebral volume loss. There is a small CSF attenuation focus subjacent to the right caudate which may relate to remote prior lacunar infarct. There are mild probable changes of chronic small vessel ischemic disease. There is no mass effect or midline shift. There is no acute intracranial hemorrhage. There is no abnormal extra-axial fluid collection. There is mild multifocal paranasal sinus mucosal thickening. There is no air-fluid level in the paranasal sinuses. The mastoid air cells and middle ears are well aerated bilaterally. IMPRESSION: 1. No identified acute intracranial abnormality. 2. Changes of encephalomalacia in the left frontal lobe subcortical white matter consistent with sequela of recently noted infarct. Remote prior lacunar infarct subjacent to the right caudate. 3. Mild changes of chronic small vessel ischemic disease. Dictated by: Dictated on workstation # [id number]
[2020-02-03 12:33] VITALS: BP 140/88
== END 2020-02-03 12:34 | disposition left against medical advice (07) ==
LOC: EDUNIT# 10:48 → ER 10:49
DX: F10.129 Alcohol abuse with intoxication, unspecified (principal); J44.9 Chronic obstructive pulmonary disease, unspecified; F31.9 Bipolar disorder, unspecified; F41.9 Anxiety disorder, unspecified; Z87.820 Personal history of traumatic brain injury; Z77.22 Contact with and (suspected) exposure to environmental tobacco smoke (acute) (chronic); Z79.82 Long term (current) use of aspirin
CPT/HCPCS: 36415; 70450; 71045; 80053; 80306; 80320; 80329; 81000; 85025; 85610; 93005

== ENCOUNTER 2020-02-07 16:52 | Emergency (ER) | payer MEDICAID ==
[~2020-02-07] VITALS: Ht 175 cm; Wt 68.0 kg
[2020-02-07] MEDS ORDERED: NS IV 1000 ML 1,000 ML IV STA (16:57)
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
[2020-02-07 17:07] LABS: BASOPHILS # (AUTO) 0.1 10^3/uL (0.0-0.1); BASOPHILS % (AUTO) 1 % (0-10); EOSINOPHILS # (AUTO) 0.4 10^3/uL (0.0-0.3); EOSINOPHILS % (AUTO) 4 % (0-10); HEMATOCRIT 36 % (40-54); HEMOGLOBIN 12.2 g/dL (13.3-17.7); LYMPHOCYTES # (AUTO) 5.3 10^3/uL (1.0-4.0); LYMPHOCYTES % (AUTO) 50 % (12-44); MEAN CORPUSCULAR HEMOGLOBIN 32 pg (25-34); MEAN CORPUSCULAR HGB CONC 34 g/dL (32-36); MEAN CORPUSCULAR VOLUME 94 fL (80-99); MEAN PLATELET VOLUME 9.9 fL (9.0-12.2); MONOCYTES # (AUTO) 0.6 10^3/uL (0.0-1.0); MONOCYTES % (AUTO) 6 % (0-12); NEUTROPHILS # (AUTO) 4.1 10^3/uL (1.8-7.8); NEUTROPHILS % (AUTO) 39 % (42-75); PLATELET COUNT 290 10^3/uL (130-400); WHITE BLOOD COUNT 10.5 10^3/uL (4.3-11.0)
[2020-02-07 17:15] LABS: ALBUMIN 4.3 GM/DL (3.2-4.5); CHLORIDE 103 MMOL/L (98-107); POTASSIUM 3.8 MMOL/L (3.6-5.0); SODIUM 141 MMOL/L (135-145)
[2020-02-07 17:16] LABS: CALCIUM 8.5 MG/DL (8.5-10.1)
[2020-02-07 17:17] LABS: GLUCOSE 113 MG/DL (70-105); TOTAL PROTEIN 7.6 GM/DL (6.4-8.2)
[2020-02-07 17:18] LABS: CARBON DIOXIDE 24 MMOL/L (21-32)
[2020-02-07 17:19] LABS: BILIRUBIN,TOTAL 0.2 MG/DL (0.1-1.0)
[2020-02-07 17:21] LABS: ALKALINE PHOSPHATASE 50 U/L (40-136); CREATININE SERUM 0.71 MG/DL (0.60-1.30); GFR ESTIMATED > 60
[2020-02-07 17:22] LABS: BUN/CREATININE RATIO 17
[2020-02-07 17:24] LABS: ALANINE AMINOTRANSFERASE 17 U/L (0-55)
--- NOTE | 2020-02-07 17:39 | NUR ---
750ML BOTTLE OF VODKA TAKEN AWAY FROM PT. TAKING A SIP
[2020-02-07 18:47] VITALS: BP 142/80
== END 2020-02-07 18:46 | disposition home or self-care (01) ==
LOC: EDUNIT# 16:52 → ER 16:53
DX: F10.129 Alcohol abuse with intoxication, unspecified (principal); F31.9 Bipolar disorder, unspecified; J44.9 Chronic obstructive pulmonary disease, unspecified; F41.9 Anxiety disorder, unspecified; F17.210 Nicotine dependence, cigarettes, uncomplicated; Z87.820 Personal history of traumatic brain injury; Z79.82 Long term (current) use of aspirin
CPT/HCPCS: 36415; 80053; 80320; 85025

== ENCOUNTER 2020-02-08 11:13 | Emergency (ER) | payer MEDICAID ==
[~2020-02-08] VITALS: Ht 177 cm; Wt 79.0 kg
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
[2020-02-08 11:57] LABS: BASOPHILS # (AUTO) 0.1 10^3/uL (0.0-0.1); BASOPHILS % (AUTO) 1 % (0-10); EOSINOPHILS # (AUTO) 0.3 10^3/uL (0.0-0.3); EOSINOPHILS % (AUTO) 3 % (0-10); HEMATOCRIT 35 % (40-54); LYMPHOCYTES # (AUTO) 4.4 10^3/uL (1.0-4.0); LYMPHOCYTES % (AUTO) 42 % (12-44); MEAN CORPUSCULAR HEMOGLOBIN 32 pg (25-34); MEAN CORPUSCULAR HGB CONC 34 g/dL (32-36); MEAN CORPUSCULAR VOLUME 93 fL (80-99); MEAN PLATELET VOLUME 9.7 fL (9.0-12.2); MONOCYTES # (AUTO) 0.5 10^3/uL (0.0-1.0); MONOCYTES % (AUTO) 5 % (0-12); NEUTROPHILS # (AUTO) 4.9 10^3/uL (1.8-7.8); NEUTROPHILS % (AUTO) 48 % (42-75); PLATELET COUNT 295 10^3/uL (130-400); WHITE BLOOD COUNT 10.3 10^3/uL (4.3-11.0)
[2020-02-08 12:09] LABS: CHLORIDE 106 MMOL/L (98-107); POTASSIUM 3.7 MMOL/L (3.6-5.0); SODIUM 145 MMOL/L (135-145)
[2020-02-08 12:10] LABS: CALCIUM 8.4 MG/DL (8.5-10.1)
[2020-02-08 12:11] LABS: GLUCOSE 87 MG/DL (70-105)
[2020-02-08 12:12] LABS: CARBON DIOXIDE 27 MMOL/L (21-32)
[2020-02-08 12:15] LABS: CREATININE SERUM 0.69 MG/DL (0.60-1.30); GFR ESTIMATED > 60
[2020-02-08 12:16] LABS: BUN/CREATININE RATIO 16
[2020-02-08 12:21] LABS: BILIRUBIN,URINE NEGATIVE (NEGATIVE); CLARITY,URINE CLEAR; COLOR,URINE YELLOW; GLUCOSE, URINE (UA) NEGATIVE (NEGATIVE); KETONES,URINE NEGATIVE (NEGATIVE); LEUKOCYTE ESTERASE ,URINE NEGATIVE (NEGATIVE); NITRITE,URINE NEGATIVE (NEGATIVE); PH,URINE 6.5 (5-9); PROTEIN,URINE NEGATIVE (NEGATIVE)
[2020-02-08 12:36] LABS: AMPHETAMINE SCREEN, URINE NEGATIVE (NEGATIVE); BARBITURATE SCREEN URINE NEGATIVE (NEGATIVE); BENZODIAZEPINES SCREEN URINE NEGATIVE (NEGATIVE); CANNABINOID SCREEN, URINE NEGATIVE (NEGATIVE); COCAINE SCREEN URINE NEGATIVE (NEGATIVE); METHADONE STAT NEGATIVE (NEGATIVE); METHAMPHETAMINE SCREEN URINE S NEGATIVE (NEGATIVE); OPIATE SCREEN URINE NEGATIVE (NEGATIVE); OXYCODONE STAT NEGATIVE (NEGATIVE); PROPOXYPHENE STAT NEGATIVE (NEGATIVE); TRICYCLIC ANTIDEPRESSANTS SCRE NEGATIVE (NEGATIVE)
[2020-02-08 12:40] LABS: BACTERIA,URINE NEGATIVE /HPF
[2020-02-08] MEDS ORDERED: LACTATED RINGERS 1,000 ML IV ONE ×2 (13:21→13:45)
--- NOTE | 2020-02-08 13:39 | NUR ---
PT RESTING WITH EYES CLOSED.
--- NOTE | 2020-02-08 14:48 | NUR ---
RESTING IN BED WITH EYES CLOSED.
--- NOTE | 2020-02-08 15:55 | NUR ---
CONTINUES TO REST WITH EYES CLOSED. VSS.
--- NOTE | 2020-02-08 16:19 | NUR ---
IN TALKING TO THE PT AT THIS TIME.
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
--- NOTE | 2020-02-08 16:32 | NUR ---
HAD PLANS FOR DISCHARGE ET HE BECAME BUSY WITH A EMERGENT PT. PT WANTING TO LEAVE AND NOT WAIT FOR 'S DISCHARGE ORDERS. PT LEFT.
[2020-02-08 16:33] VITALS: BP 106/59
== END 2020-02-08 16:33 | disposition home or self-care (01) ==
LOC: EDUNIT# 11:13 → ER 11:16
DX: F10.129 Alcohol abuse with intoxication, unspecified (principal); J44.9 Chronic obstructive pulmonary disease, unspecified; F31.9 Bipolar disorder, unspecified; F41.9 Anxiety disorder, unspecified; Z87.820 Personal history of traumatic brain injury; Z77.22 Contact with and (suspected) exposure to environmental tobacco smoke (acute) (chronic); Z79.82 Long term (current) use of aspirin
CPT/HCPCS: 36415; 80048; 80306; 80320; 81000; 85025

== ENCOUNTER 2020-02-09 07:59 | Emergency (ER) | payer MEDICAID ==
[~2020-02-09] VITALS: Ht 182 cm; Wt 79.0 kg
--- NOTE | 2020-02-09 08:15 | NUR ---
ROLLER INSPECTOR CONTACTED FOR THE PT.
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
--- NOTE | 2020-02-09 08:26 | NUR ---
BREAKFAST ORDERED FOR THE PT.
--- NOTE | 2020-02-09 08:43 | NUR ---
BREAKFAST TAKEN TO THE PT.
--- NOTE | 2020-02-09 09:03 | NUR ---
MINE GEOLOGIST IN ROOM AT THIS TIME.
--- NOTE | 2020-02-09 09:45 | NUR ---
CM/SS: Visited with pt as per plan for discharge from the emergency room and is current situation of being homeless Pt has been living in a local hotel, however has been previously at [facility] -left AMA from this hospital approximately two weeks ago and has been back and forth to the Emergency Room and reportedly police have been called, but not a legal matter, and pt is currently not suicidal or homicidal. Pt does not have a medical reason to be admitted at this time. Call to [employer] to determine if pt has money on his debit card - pt is able to verify some information and it is determined that pt has $496.29. Telephone call to pt's sister - Katie - [phone] - she advises this worker to call [facility] and Jaron Toussaint, pt Principal [employer] with [employer]. She wants pt to be admitted to a mental health facility. She is reminded of pt's current state - and he is not a threat to self or others. She advises to us the screen when he was here previously. She is educated that we are unable to do this. Telephone call to Dejah from [facility] - [phone] - she has the pt's belongings and reports she was unable to hold pt's bed - she request this worker call Jaron Toussaint. Telephone Call to Jaron Toussaint - [phone] - he is calling [facility] to see if they will take pt back. This worker is awaiting a call back from Jaron Toussaint. Pt smells as if he has been drinking - and seems to be open at this time to return to [facility] facility. Pt continues to indicate he needs a cigarette and is redirected by this worker. RN does remind pt of it being a non smoking facility. Pt is redirected and watches TV.
--- NOTE | 2020-02-09 10:01 | NUR ---
SOCIAL SERVICE STILL WORKING WITH THE PT. PT WANTING TO SMOKE. NOTIFIED HIM THIS WAS A NON SMOKING FACILITY. OFFERED HIM A NICOTENE PATCH. HE REFUSED.
--- NOTE | 2020-02-09 10:36 | NUR ---
CM/SS: [facility] will not take pt back without a level II screen. [facility] [phone] - contacted about the Level II screen being completed - they have given me the email to request the Level II screen. Telephone to [facility] - Arnoldo Staley - they can complete the Level II screen - they have to have paperwork from [facility]. Email sent to [email or web address] - requesting the level II screen be completed
--- NOTE | 2020-02-09 11:25 | NUR ---
LUNCH TRAY ORDERED FOR THE PT.
--- NOTE | 2020-02-09 12:32 | NUR ---
TALKED WITH NOREEN FROM [employer] [facility] SHE STATES SHE IS FAXING THINGS TO [facility]
--- NOTE | 2020-02-09 13:02 | NUR ---
CM/SS: Cannot get a response from [facility] on the Level II assessment. Email sent and phone message left. Referral sent to [facility] - [facility] - here in [place]. Spoke with Kacey, [employer] and she requested information be sent over for placement consideration. Sister Nandini - has called also and given an update on the pt. She is aware pt is still in the emergency room. She is frustrated that [facility] will not take the pt back.
--- NOTE | 2020-02-09 13:13 | NUR ---
RESTING IN BED ET DENIES NEEDS AT THIS TIME.
--- NOTE | 2020-02-09 14:28 | NUR ---
RESTING IN BED WITH EYES CLOSED.
--- NOTE | 2020-02-09 14:43 | NUR ---
PT UP TO THE BATHROOM.
--- NOTE | 2020-02-09 15:31 | NUR ---
SOCIAL SERVICE HERE TALKING TO THE PT AT THIS TIME.
--- NOTE | 2020-02-09 15:50 | NUR ---
NOREEN FROM [employer] STATES PT IS WANTING TO LEAVE. SHE STATES SHE WILL CONTINUE TO TRY TO GET PT INTO [facility] EVEN IF HE LEAVES. DR BYERS.
[2020-02-09 16:00] VITALS: BP 159/99
--- NOTE | 2020-02-09 17:22 | NUR ---
CM/SS: Pt's sister (Katie) [phone] is notified that pt will be leaving the hospital and still waiting on a call from [facility] as to if they can take pt. Pt indicates he will be staying at the Hotel by [facility].
--- NOTE | 2020-02-09 17:24 | NUR ---
CM/SS: Pt is encouraged not to drink and to be safe - pt is reminded to call his sister later this evening. He verbalizes understanding. Pt reports he will be staying at the hotel across the street from [facility] [address].
--- NOTE | 2020-02-09 17:26 | NUR ---
CM/SS: ADULT PROTECTIVE SERVICES REPORT MADE # [id number] - based on pt being homeless and having history of mental health issues, as well as not being able to return to [facility]. This worker previously spoke to Fouzia Ellis as to the Level II assessment and she encouraged this worker to call Dean Sher - [employer] Operator of Adult Protective Services Call to Dean - discussed case - he recommended that an Adult Protective Service Report be completed.
--- NOTE | 2020-02-11 09:13 | NUR ---
CM/SS: Notification form [place] [facility] - via email - Notification Letter - Report #[id number] - This intake was ASSIGNED FOR INVESTIGATION.
--- NOTE | 2020-02-11 12:02 | NUR ---
CM/SS: Information requested from [facility] related to getting the Level II assessment completed. Information submitted to [facility] - Ana Benson, [employer], Jennifer Chiu,[facility], as well as Isabell Link and Dean Crespo from [facility]. They are informed that pt is no longer a patient here, but does frequent the emergency room and they will be informed if he returns to the hospital.
== END 2020-02-09 16:00 | disposition home or self-care (01) ==
LOC: EDUNIT# 07:59 → ER 08:00
DX: F10.10 Alcohol abuse, uncomplicated (principal); F41.9 Anxiety disorder, unspecified; F31.9 Bipolar disorder, unspecified; J44.9 Chronic obstructive pulmonary disease, unspecified; Z20.828 Contact with and (suspected) exposure to other viral communicable diseases; Z77.22 Contact with and (suspected) exposure to environmental tobacco smoke (acute) (chronic); Z87.820 Personal history of traumatic brain injury; Z79.82 Long term (current) use of aspirin
CPT/HCPCS: 87635; 99281